=== PATIENT | female | born 1955 | race Caucasian/White ===

== ENCOUNTER 2020-03-25 15:58 | Outpatient (CLI) | payer BC, SELFPAY ==
--- NOTE | ~2020-03-25 | XR_ITS ---
EXAMINATION: XR foot RT min 3V, XR ankle RT min 3V EXAM DATE: 03/25/2020 16:28 (accession [id number]), 03/25/2020 16:29 (accession [id number]) INDICATION: Initial encounter following injury, with pain of the right foot and ankle. TECHNIQUE: Right foot dorsoplantar, lateral and oblique projections obtained and reviewed. Right ank le frontal, lateral and oblique projections obtained and reviewed. There is no prior study for alejandro padilla. FINDINGS: Right metatarsal bones unremarkable. The right ankle mortise appears intact. Small post erior and inferior calcaneal spurs. There are no acute fractures or dislocations identified. There i s no subcutaneous gas. The soft tissue is unremarkable. There are no radiopaque foreign bodies. IMPRESSION: 1. Right foot, ankle exam without acute osseous findings. Reviewed, dictated and finalized at location A. IMPRESSION: 1. Right foot, ankle exam without acute osseous findings.
== END 2020-03-25 15:59 | disposition home or self-care (01) ==
PROVIDERS: PCP Internal Medicine; Visit Provider Internal Medicine
DX: S99.919A Unspecified injury of unspecified ankle, initial encounter (principal); X58.XXXA Exposure to other specified factors, initial encounter
CPT/HCPCS: 73610; 73630

== ENCOUNTER 2020-09-09 08:35 | Emergency (ER) | payer BC, SELFPAY ==
[2020-09-09] VITALS (19 sets, daily range): BP systolic 134–155; BP diastolic 59–85; PULSE 58–71; RESP 15–23; TEMP 37; O2SAT 98–100
--- NOTE | ~2020-09-09 | XR_ITS ---
EXAMINATION: XR chest 2V DATE: 09/09/2020 09:31 INDICATION: Chest pain. TECHNIQUE: Frontal and lateral views of the chest were obtained. COMPARISON: Chest 2 views 12/09/2017 FINDINGS: The chest demonstrates clear lungs without pneumonia, pleural effusion, or pneumothorax. Th e heart size is normal. Surgical clips in the right upper quadrant are likely from cholecystectomy. IMPRESSION: 1. No acute cardiopulmonary disease. Reviewed, dictated and finalized at location B. UITING SCHEDULER
--- NOTE | 2020-09-09 08:40 | ECG_ITS ---
Measurements Intervals [place] Rate: 76 P: 64 GA: 140 QRS: 43 QRSD: 79 T: 43 QT: 387 QTc: 436 Interpretive Statements SINUS RHYTHM BORDERLINE ST ABNORMALITY- ANT/INF LEADS BORDERLINE ECG Electronically Signed On 09-09-2020 9:22:07 [employer] MANAGER by Chava Bonds D.O.
--- NOTE | 2020-09-09 08:50 | ED.CHESTPAIN ---
HPI - Chest Pain General Chief Complaint: Chest Pain Stated Complaint: chest pain Time Seen by Provider: 09/09/20 08:49 Source: patient Mode of arrival: ambulatory Limitations: no limitations History of Present Illness HPI narrative: Patient is a 65-year-old female complaining of chest pain, midsternal, tightness, 8 out of 10, nonradiating, lasted for approximately 4-5 minutes, single episode, now resolved. Patient denies any shortness of breath, nausea, vomiting, abdominal pain, diaphoresis or fever Related Data Home Medications Medication Instructions Recorded Confirmed aspirin [Aspir-81] 81 mg PO DAILY 09/05/19 07/01/20 calcium-vitamin D3-vitamin K 1 tablet PO DAILY 09/05/19 07/01/20 loratadine-pseudoephedrine ER 10 1 tablet PO DAILY 10/16/19 07/01/20 mg-240 mg tablet,extended [id number] omeprazole 20 mg capsule,delayed 20 mg PO DAILY 10/16/19 07/01/20 release turmeric 400 mg capsule mg PO 10/16/19 07/01/20 cholecalciferol (vitamin D3) 1,250 1,250 mcg PO WEEKLY 06/30/20 07/01/20 mcg (50,000 unit) tablet Allergies Allergy/AdvReac Type Severity Reaction Status Date / Time codeine Allergy Rash Verified 09/09/20 08:44 Review of Systems Review of Systems: All systems reviewed & are unremarkable except as noted in HPI and below Constitutional: Constitutional: Denies body ache(s), Denies chills, Denies excessive sweating, Denies fatigue, Denies fever(s), Denies headache(s), Denies lethargy, Denies malaise, Denies weakness and Denies weight loss Eyes: Eyes: Denies blurry vision, Denies change in vision and Denies loss of vision ENT: Denies dizziness, Denies ear discharge, Denies headache(s), Denies lip swelling, Denies epistaxis, Denies nasal congestion, Denies neck pain, Denies throat swelling and Denies tongue swelling Cardiovascular: Cardiovascular: Denies diaphoresis, Denies rapid heart rate, Denies edema, Denies irregular heart rhythm, Denies lightheadedness, Denies palpitations, Denies dyspnea and Denies dyspnea on exertion Respiratory: Respiratory: Denies chest congestion, Denies cough, Denies hemoptysis, Denies dyspnea and Denies dyspnea on exertion Gastrointestinal: Gastrointestinal: Denies abdominal pain, Denies melena, Denies hematochezia, Denies diarrhea, Denies nausea, Denies vomiting and Denies hematemesis Musculoskeletal: Musculoskeletal: Denies abnormal gait, Denies deformity, Denies joint swelling, Denies limited range of motion, Denies neck pain and Denies numbness Neurologic: Denies Abnormal speech present, Denies abnormal gait, Denies confusion, Denies dizziness, Denies headache(s), Denies focal weakness, Denies loss of vision, Denies numbness, Denies Other visual disturbances, Denies Sensory deficit (Neuro) and Denies weakness Psychiatric: Psychiatric: Denies confusion, Denies depression, Denies auditory hallucinations, Denies homicidal ideation and Denies suicidal ideation Endocrine: Endocrine: Denies cold intolerance, Denies excessive sweating, Denies fatigue, Denies heat intolerance and Denies palpitations Hematologic/Lymphatic: Hematologic/Lymphatic: Denies easy bleeding and Denies easy bruising Allergic/Immunologic: Allergic/Immunologic: Denies lip swelling, Denies throat swelling and Denies tongue swelling [facility] Past Medical History Medical History (Updated 09/09/20 @ 12:46 by Gianluca Brennan MD) Body mass index (BMI) 40.0-44.9, adult Chronic headaches Encounter for preventive health examination Encounter for routine adult health examination without abnormal findings GERD (gastroesophageal reflux disease) Hyperlipidemia Hypertension Hypothyroid Hypothyroidism (acquired) Mild reactive airways disease Morbid obesity On correction 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 MIO (obstructive sleep apnea) uses oral appliance Family History Family History Father Family history of malignant neoplasm of gastrointestinal tract Rectal Family history o
[2020-09-09 09:02] LABS: Basophils Absolute Auto 0.1 K/mm3 (0.0-0.1); Basophils Percent Auto 0.7 % (0.2-1.2); Eosinophils Absolute Auto 0.5 K/mm3 (0-0.3); Eosinophils Percent Auto 5.4 % (0-4.4); Hematocrit 37.5 % (37.0-47.0); Hemoglobin 12.5 g/dL (12.0-15.0); Immature Granulocyte Absolute 0.03 K/mm3 (0.00-0.031); Immature Granulocyte Percent A 0.3 % (0-0.5); Lymphocytes Absolute Auto 1.53 K/mm3 (0.9-3.2); Lymphocytes Percent Auto 17.3 % (18.3-44.2); Mean Corpuscular HGB Conc 33.3 g/dl (32-36); Mean Corpuscular Hemoglobin 27.5 pg (26-34); Mean Corpuscular Volume 82.4 fl (80-100); Mean Platelet Volume 8.8 fl (7.4-10.4); Monocytes Absolute Auto 0.6 K/mm3 (0.1-0.6); Monocytes Percent Auto 7.2 % (2.6-8.5); Neutrophils Absolute Auto 6.1 K/mm3 (1.3-6.7); Neutrophils Percent Auto 69.1 % (45.5-73.1); Platelet Count Result 282 k/mm3 (150-375); Red Blood Count 4.55 M/mm3 (4.2-5.4); Red Cell Distribution Width 14.2 % (11.5-14.5); White Blood Count 8.9 K/mm3 (4.5-10.0)
[2020-09-09 09:09] LABS: INR 0.9; Prothrombin Time 12.8 Seconds (11.1-14.7)
[2020-09-09 09:10] LABS: Partial Thromboplastin Time 26.5 SECONDS (22.3-36.8)
[2020-09-09 09:39] LABS: Anion Gap 6 mmol/L (8-16); Blood Urea Nitrogen 18 mg/dL (7-17); Calcium 9.1 mg/dL (8.4-10.2); Carbon Dioxide 29 mmol/L (22-30); Chloride 104 mmol/L (98-107); Estimated CRCL calculation 65 ml/min; Estimated Glomerular Filt Rate 56; Glucose 116 mg/dL (65-105); Potassium 3.6 mmol/L (3.4-5.0); Sodium 139 mmol/L (137-145)
--- NOTE | 2020-09-09 09:40 | PC.NURSE ---
pt states she took a regular aspirin this am.
[2020-09-09 09:49] LABS: Troponin I < 0.012 ng/mL (0.000-0.034)
[2020-09-09 12:25] LABS: Troponin I < 0.012 ng/mL (0.000-0.034)
== END 2020-09-09 13:03 | disposition home or self-care (01) ==
PROVIDERS: Emergency Provider Emergency Medicine; PCP Internal Medicine
DX: R07.89 Other chest pain (principal); E66.01 Morbid (severe) obesity due to excess calories; Z68.41 Body mass index [BMI] 40.0-44.9, adult; K21.9 Gastro-esophageal reflux disease without esophagitis; E78.5 Hyperlipidemia, unspecified; I10 Essential (primary) hypertension; E03.9 Hypothyroidism, unspecified; G47.30 Sleep apnea, unspecified
CPT/HCPCS: 36415; 71046; 80048; 84484; 85025; 85610; 85730; 93005; 99284

== ENCOUNTER → 2020-11-11 14:10 | Outpatient (CLI) | payer BC, SELFPAY ==
--- NOTE | ~2020-11-11 | MM_ITS ---
EXAMINATION: MM screening [facility] BI w mojgan HISTORY: Screening TECHNIQUE: Craniocaudal and mediolateral oblique 3-D tomosynthesis images were obtained and synthetic 2-D images were generated. CAD analysis was submitted and interpreted. COMPARISON: Comparison to multiple prior studies sequentially, with oldest reviewed study dated 06/23. BREAST PARENCHYMAL COMPOSITION: There are scattered areas of fibroglandular density. FINDINGS: Stable clustered calcifications in the upper outer quadrant of the left breast with adjacen t tissue marker. There is no evidence of suspicious mass, calcification, or architectural distortion to suggest malignancy in either breast. There has been no suspicious interval change. IMPRESSION: 1. No mammographic evidence of malignancy. 2. Recommend routine screening mammography in one year. BI-RADS Category 2: Benign finding(s). Reviewed, dictated and finalized at location A. MIXER
== END ==
PROVIDERS: PCP Internal Medicine; Visit Provider Nurse Practitioner
DX: Z12.31 Encounter for screening mammogram for malignant neoplasm of breast (principal)
CPT/HCPCS: 77063; 77067

== ENCOUNTER 2021-07-30 08:15 | Outpatient (CLI) | payer BC, SELFPAY ==
--- NOTE | ~2021-07-30 | US_ITS ---
EXAMINATION: US abdomen limited DATE: 07/30/2021 08:42 INDICATION: Elevated liver function tests TECHNIQUE: Multiple grayscale and Doppler ultrasound images of the abdomen were obtained. COMPARISON: None FINDINGS: The pancreatic head and body are normal in appearance. The pancreatic tail is not visualized. Visual ized proximal abdominal aorta and inferior vena cava are normal. Liver has normal echogenicity and co ntour, with a smooth surface. No liver lesion identified. No intrahepatic biliary duct dilation suspe cted. Portal venous flow was seen in the hepatopetal, normal direction and has normal Doppler wavefor m. Gallbladder is not visualized and reportedly surgically absent. Common bile duct measures 7 mm in maximal diameter which is within normal limits postcholecystectomy. Visualized portion of the right k idney demonstrates normal contour and echogenicity with no hydronephrosis. IMPRESSION: 1. Mildly dilated common bile duct which is within normal limits post cholecystectomy. Otherwise norm al study with no intrahepatic biliary ductal dilation. Reviewed, dictated and finalized at location A. IMPRESSION: 1. Mildly dilated common bile duct which is within normal limits post cholecyst ectomy. Otherwise normal study with no intrahepatic biliary ductal dilation.
== END 2021-07-30 08:16 | disposition home or self-care (01) ==
LOC: ANHIMG 08:18
PROVIDERS: PCP Internal Medicine; Visit Provider Internal Medicine
DX: R79.89 Other specified abnormal findings of blood chemistry (principal)
CPT/HCPCS: 76705

== ENCOUNTER 2021-10-16 10:49 | Outpatient (CLI) | payer BC, SELFPAY ==
[2021-10-16 11:56] LABS: Alanine Aminotransferase 34 U/L (4-35); Albumin Level 4.3 g/dL (3.5-5.1); Alkaline Phosphatase 87 U/L (38-126); Aspartate Amino Transferase 48 U/L (14-36); Bilirubin,Total 1.8 mg/dL (0.2-1.3); Cholesterol 159 mg/dL (0-200); HDL Direct 57 mg/dL; Triglycerides 109 mg/dL (<150)
[2021-10-16 12:07] LABS: LDL Cholesterol Direct 68 mg/dL
[2021-10-20 14:02] LABS: Vitamin D 25 Hydroxy 75.1 ng/mL
== END 2021-10-16 10:50 | disposition home or self-care (01) ==
PROVIDERS: PCP Internal Medicine; Visit Provider Internal Medicine
DX: E55.9 Vitamin D deficiency, unspecified (principal); E78.2 Mixed hyperlipidemia; R79.89 Other specified abnormal findings of blood chemistry
CPT/HCPCS: 36415; 80061; 80076; 82306

== ENCOUNTER → 2021-11-21 09:49 | Outpatient (CLI) | payer BC, SELFPAY ==
--- NOTE | ~2021-11-21 | MM_ITS ---
EXAMINATION: MM screening [facility] BI w mojgan HISTORY: Screening mammogram TECHNIQUE: Craniocaudal and mediolateral oblique 3-D tomosynthesis images were obtained and synthetic 2-D images were generated. CAD analysis was submitted and interpreted. COMPARISON: 11/11/2020, 08/10/2019, 07/17/2018, 07/06/2018 BREAST PARENCHYMAL COMPOSITION: The breasts are almost entirely fatty. FINDINGS: Scattered benign-appearing calcifications are present. There is no evidence of suspicious m ass, calcification, or architectural distortion to suggest malignancy in either breast. There has bee n no suspicious interval change. IMPRESSION: 1. No mammographic evidence of malignancy. 2. Recommend routine screening mammography in one year. BI-RADS Category 2: Benign finding(s). Reviewed, dictated and finalized at location A. SH FLAKER
--- NOTE | ~2021-11-21 | DEXA_ITS ---
Bone Density Report Name: DELVIS LUND Age: 66 Sex: Female Ethnicity: White Date of : 1955 Indication: postmenopausal; screening for osteoporosis; hysterectomy; Referring Provider: PRANAV, MIGUEL Study: Bone densitometry was performed. Exam Date: November 21, 2021 Accession number: [id number] Bone Density: Region BMD T-score Z-score Classification AP Spine (L1-L4) 1.158 1.0 2.7 Normal Femoral Neck (Left) 0.786 -0.6 0.9 Normal Total Hip (Left) 1.070 1.0 2.2 Normal Femoral Neck (Right) 0.868 0.2 1.6 Normal Total Hip (Right) 1.040 0.8 2.0 Normal Total Hip Mean 1.055 0.9 2.1 Normal World Health Organization criteria for BMD impression classify patients as: Normal (T-score at or above -1.0), Osteopenia (T-score between -1.0 and -2.5), or Osteoporosis (T-score at or below -2.5). 10-year Fracture Risk: FRAX not reported because: All T-scores for Spine Total, Hip Total, Femoral Neck at or above -1.0 Previous Exams: Region Exam Age BMD T-score BMD Change BMD Change Date g/cm2 vs Baseline vs Previous AP Spine(L1-L4) 11/21/2021 66 1.158 1.0 -0.084 0.014 06/23/2017 61 1.144 0.9 -0.098 -0.028* 10/14/2012 57 1.172 1.1 -0.070 0.001 09/02/2010 55 1.171 1.1 -0.071 -0.055 06/03/2008 52 1.226 1.6 -0.016 -0.016 11/18/2004 49 1.242 1.8 Total Hip(Left) 11/21/2021 66 1.070 1.0 -0.062 -0.051* 06/23/2017 61 1.121 1.5 -0.011 0.029* 10/14/2012 57 1.092 1.2 -0.040 -0.005 09/02/2010 55 1.097 1.3 -0.035 0.016 06/03/2008 52 1.081 1.1 -0.051* -0.051* 11/18/2004 49 1.132 1.6 Total Hip(Right) 11/21/2021 66 1.040 0.8 -0.048 -0.001 06/23/2017 61 1.041 0.8 -0.046 -0.023 10/14/2012 57 1.065 1.0 -0.023 0.039* 09/02/2010 55 1.025 0.7 -0.062 -0.033 06/03/2008 52 1.059 1.0 -0.029* -0.029* 11/18/2004 49 1.087 1.2 *Denotes significance at 95% confidence level, LSC for AP Spine = 0.022 g/cm2, LSC for Total Hip = 0.027 g/cm2 Clinical Information Provided by Patient: Has used the following medications: Vitamin D Has the following medical conditions: Hysterectomy Patient maximum height was 65.5 Menopause Age: 41 Drinks caffeinated beverages Onset of menses at a
== END ==
PROVIDERS: PCP Internal Medicine; Visit Provider Nurse Practitioner
DX: Z12.31 Encounter for screening mammogram for malignant neoplasm of breast (principal); Z78.0 Asymptomatic menopausal state
CPT/HCPCS: 77063; 77067; 77080

== ENCOUNTER 2022-02-01 08:12 | Outpatient (CLI) | payer BC, SELFPAY ==
--- NOTE | ~2022-02-01 | NM_ITS ---
EXAMINATION: NM alvarado stress w perfusion DATE: 02/01/2022 11:01 INDICATION: Abnormal finding on diagnostic imaging of the heart. TECHNIQUE: Rest images were obtained following intravenous administration of 11.0 mCi Tc99m tetrofosm in (Myoview). The patient was infused intravenously with Lexiscan (Regadenoson). Then, 33.0 mCi Tc99m tetrofosmin (Myoview) was administered intravenously, and stress images were obtained. Data was kemi nstructed into short axis and horizontal and vertical long axis SPECT images. Gated SPECT images were also obtained. COMPARISON: None. FINDINGS: There is no definite reversible or fixed perfusion abnormality to suggest ischemia or infar ction. There is normal left ventricular chamber size, wall motion and ejection fraction. Left ventr icular ejection fraction measures >70%. IMPRESSION: 1. Normal myocardial perfusion at rest and during stress. 2. Left ventricular ejection fraction measuring >70%. Reviewed, dictated and finalized at location B.
--- NOTE | 2022-02-01 08:29 | EST_ITS ---
Patient Info Name: Kathleen Weller Age: 66 years : 1955 Gender: Female Ht: 65 in Wt: 228 lbs BSA: 2.23 m2 HR: 81 bpm BP: 105 / 64 mmHg Heart Rhythm: Sinus Rhythm Exam Date: 02/01/2022 9:45 AM Exam Location: [facility] Stress Patient Status: Outpatient Admit Date: 02/01/2022 Staff Ordering Physician: Rock Early MD Attending Provider: Rock Early MD Exercise Technologist: Vicki Lopez CT Exercise Physician: Chava Bonds DO Exam Type: CA stress alvarado w NM Study Info Indications R07.9 - Chest pain, unspecified A regadenoson stress test was performed. Summary 1. 1. Negative lexiscan stress test for ischemic ST changes by ECG criteria. 2. 2. Stable hemodynamics throughout the test. 3. 3. Nuclear scan to follow and will be reported separately. Please correlate with it. 4. 4. Patient informed of the above results. Protocol: Lexiscan Stress ECG Details Stage: REST Duration (min): 2 min : 46 sec HR (bpm): 81 SBP (mmHg): 105 DBP (mmHg): 64 Stage: REST Duration (min): 9 min : 23 sec HR (bpm): 80 SBP (mmHg): 105 DBP (mmHg): 64 Stage: STAGE 1 Duration (min): 1 min : 0 sec HR (bpm): 97 SBP (mmHg): 82 DBP (mmHg): 55 Stage: RECOVERY Duration (min): 1 min : 0 sec HR (bpm): 94 SBP (mmHg): 82 DBP (mmHg): 55 Stage: RECOVERY Duration (min): 2 min : 0 sec HR (bpm): 95 SBP (mmHg): 82 DBP (mmHg): 55 Stage: RECOVERY Duration (min): 2 min : 48 sec HR (bpm): 96 SBP (mmHg): 101 DBP (mmHg): 55 Rest HR: 80 bpm Peak HR: 99 bpm Rest Sys BP: 105 mmHg Peak Sys BP: 101 mmHg Max Pred HR: 156 bpm % Max Pred HR: 63 % Target HR: 133 bpm Max RPP: 9,999 bpm*mmHg Termination Reason: Completed protocol Cardiac Symptoms: Shortness of breath Total Time: 1 min : 0 sec Rest Rico BP: 64 mmHg Peak Rico BP: 55 mmHg Total Dose: 0.4 mg Resting ECG Sinus rhythm, borderline sagging ST depression in anterolat/inf leads. Stress ECG No significant ST abnormality. Arrhythmias None. Report Signatures
== END 2022-02-01 08:13 | disposition home or self-care (01) ==
PROVIDERS: PCP Internal Medicine; Visit Provider Internal Medicine
DX: R93.1 Abnormal findings on diagnostic imaging of heart and coronary circulation (principal); R07.9 Chest pain, unspecified
CPT/HCPCS: 78452; 93017; A9502; J2785

== ENCOUNTER 2022-02-12 04:14 | Day surgery (SDC) | payer BC, SELFPAY ==
[2022-02-02 10:57] VITALS: BMI 37.4
[2022-02-12 10:43] VITALS: BP 112/71; PULSE 74; RESP 16; TEMP 36.3; O2SAT 100
[2022-02-12] MEDS: LACTATED RINGERS 1,000 ML 150 ML IV CONT (10:52)
--- NOTE | 2022-02-12 10:52 | WPDGICN ---
Assessment and Plan Assessment and plan (1) Dysphagia: Code(s): R13.10 - Dysphagia, unspecified Status: Acute Assessment and Plan: patient with several month history of increasing dysphagia difficulty swallowing solid foods. Plan is for EGD to assess more thoroughly. Likely related to her prior history of GE reflux disease. (2) GERD (gastroesophageal reflux disease): Qualifiers: Esophagitis presence: without esophagitis Qualified Code(s): K21.9 - Gastro-esophageal reflux disease without esophagitis Code(s): K21.9 - Gastro-esophageal reflux disease without esophagitis Status: Acute Assessment and Plan: Patient with a history of GE reflux disease. Currently maintained on omeprazole 20mg p.o. daily. She has no heartburn at present. Continue anti-reflux measures encourage. GI Consult Note Consult date/time: 02/12/22 10:52 HPI: Kathleen Weller is a 66 year old female Presents for EGD. Patient notices that she has difficulty swallowing solid pieces of food over last 2-3 months. She states that will catch cause her to vomit. She feels as though it catches in her throat sometimes unable to swallow liquids after this occurs. Otherwise she has no difficulty with liquids. She does states several years ago was treated for acid reflux disease. She has been maintained on Prilosec the intra recently tried to double this dose with no change in her symptoms. She denies any significant heartburn present. She has had no bleeding or weight loss. Her family history is noncontributory. Recent colonoscopy 2019. Review of Systems Review of Systems: All systems reviewed & are unremarkable except as noted in HPI and below PMFSH Past Medical History Medical History (Updated 02/12/22 @ 10:53 by Manuel Horowitz MD) Abnormal finding of blood chemistry Agatston coronary artery calcium score between 100 and 199 Atypical chest pain Body mass index (BMI) 40.0-44.9, adult Body mass index (BMI) 45.0-49.9, adult Chest pain Chronic headaches Dyshidrotic eczema Elevated LFTs Encounter for preventive health examination Encounter for routine adult health examination with abnormal findings Encounter for routine adult health examination without abnormal findings Follow up GERD (gastroesophageal reflux disease) Hyperlipidemia Hypertension Hypothyroid Hypothyroidism (acquired) Mild reactive airways disease Morbid obesity 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 MIO (obstructive sleep apnea) uses oral appliance MIO (obstructive sleep apnea) MIO (obstructive sleep apnea) Pre-diabetes Rash Vision changes Surgical History Surgical History (Updated 01/20/22 @ 14:01 by Agueda Sampson MA) H/O: hysterectomy History of cholecystectomy Family History Family History Father Family history of malignant neoplasm of gastrointestinal tract Rectal Family history of malignant neoplasm Leukemia Mother Family history of pancreatic cancer, Onset Age: 75 Social History Social History Smoking status: Never smoker Alcohol intake: current Alcohol use details: occasional Substance use: never Substance use type: does not use Living arrangements: with family Spiritual care concerns: No Meds Home Medications and Allergies Home Medications Medication Instructions Recorded Confirmed Type aspirin [Aspir-81] 81 mg PO DAILY 09/05/19 02/02/22 History calcium-vitamin D3-vitamin K 1 tablet PO DAILY 09/05/19 02/02/22 History loratadine-pseudoephedrine ER 10 1 tablet PO DAILY 10/16/19 02/02/22 History mg-240 mg tablet,extended [id number] omeprazole 20 mg capsule,delayed 20 mg PO DAILY 10/16/19 02/02/22 History release betamethasone dipropionate 0.05 % 1 applic TOPICAL BID PRN #45 g 10/14/20 02/02/22 Rx topical cream tizanidine 4 mg tablet See Rx Instructions .R
--- NOTE | 2022-02-12 11:03 | WPDANESEPPF ---
Anes - Initial Pre Proc Eval Procedure: Operation Date: 02/12/22 12:00 Proposed Procedures p Esophagogastroduodenoscopy - Manuel Horowitz MD Date/Time: 02/12/22 11:04 Surgeon: Manuel Horowitz MD Pre Op Diagnosis: dysphagia Patient Data Age: 66 Gender: F Height: 1.66 m Weight: 101.2 kg Last Vital Signs Temp 36.3 C L 02/12/22 10:43 Pulse 74 02/12/22 10:43 Resp 16 02/12/22 10:43 BP 112/71 02/12/22 10:43 Pulse Ox 100 02/12/22 10:43 Allergies Allergy/AdvReac Type Severity Reaction Status Date / Time codeine Allergy Rash Verified 02/12/22 10:41 Home Medications Medication Instructions Recorded Confirmed Type aspirin [Aspir-81] 81 mg PO DAILY 09/05/19 02/02/22 History calcium-vitamin D3-vitamin K 1 tablet PO DAILY 09/05/19 02/02/22 History loratadine-pseudoephedrine ER 10 1 tablet PO DAILY 10/16/19 02/02/22 History mg-240 mg tablet,extended [id number] omeprazole 20 mg capsule,delayed 20 mg PO DAILY 10/16/19 02/02/22 History release betamethasone dipropionate 0.05 % 1 applic TOPICAL BID PRN #45 g 10/14/20 02/02/22 Rx topical cream tizanidine 4 mg tablet See Rx Instructions .ROUTE 01/22/21 02/02/22 Rx .COMPLEX #45 tablet cholecalciferol (vitamin D3) 1,250 1,250 mcg PO MONTHLY 08/17/21 02/02/22 History mcg (50,000 unit) capsule rosuvastatin 20 mg tablet 20 mg PO DAILY #90 tablet 08/17/21 02/02/22 Rx rimegepant 75 mg disintegrating 75 mg PO ONCE PRN #30 tablet 10/20/21 02/02/22 Rx tablet losartan 100 See Rx Instructions .ROUTE 12/09/21 02/02/22 Rx mg-hydrochlorothiazide 12.5 mg .COMPLEX #90 tablet tablet acyclovir 400 mg tablet See Rx Instructions .ROUTE 12/14/21 02/02/22 Rx .COMPLEX #180 tablet levothyroxine 112 mcg tablet See Rx Instructions .ROUTE 01/15/22 02/02/22 Rx .COMPLEX #90 tablet azelastine 137 mcg (0.1 %) nasal 2 spray NASAL Q12H #30 ml 02/04/22 02/12/22 Rx spray aerosol Patient hx anesthesia problems: none Family hx anesthesia problems: none Results Review: All pre-operative results and documents have been reviewed as part of the pre-operative evaluation. [facility] Past Medical History Medical History Abnormal finding of blood chemistry Agatston coronary artery calcium score between 100 and 199 Atypical chest pain Body mass index (BMI) 40.0-44.9, adult Body mass index (BMI) 45.0-49.9, adult Chest pain Chronic headaches Dyshidrotic eczema Elevated LFTs Encounter for preventive health examination Encounter for routine adult health examination with abnormal findings Encounter for routine adult health examination without abnormal findings Follow up GERD (gastroesophageal reflux disease) Hyperlipidemia Hypertension Hypothyroid Hypothyroidism (acquired) Mild reactive airways disease Morbid obesity On long term care administrator 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 MIO (obstructive sleep apnea) uses oral appliance MIO (obstructive sleep apnea) MIO (obstructive sleep apnea) Pre-diabetes Rash Vision changes Surgical History Surgical History H/O: hysterectomy History of cholecystectomy Family History Family History Father Family history of malignant neoplasm of gastrointestinal tract Rectal Family history of malignant neoplasm Leukemia Mother Family history of pancreatic cancer, Onset Age: 75 Social History Social History Smoking status: Never smoker Alcohol intake: current Alcohol use details: occasional Substance use: never Substance use type: does not use Living arrangements: with family Spiritual care concerns: No Anes - Eval Final PreProcedure Day of Procedure 02/12/22 11:04 Patient weight: obese Heart: regular rate and rhythm Lungs: clear to auscultation Airway: Mallampati scale class II Neurological: a
[2022-02-12 11:48] VITALS: BP 95/41; PULSE 58; RESP 17; O2SAT 100
[2022-02-12 11:58] VITALS: BP 101/58; PULSE 59; RESP 14; O2SAT 100
[2022-02-12 12:08] VITALS: BP 105/58; PULSE 60; RESP 15; O2SAT 100
== END 2022-02-12 12:24 | disposition home or self-care (01) ==
PROVIDERS: PCP Internal Medicine; Visit Provider Internal Medicine Gastroenterology
PROC: 0DJ08ZZ Inspection of Upper Intestinal Tract, Via Natural or Artificial Opening Endoscopic (ICD-10-PCS; CPT 43235; principal; 2022-02-12 12:00)
DX: K22.2 Esophageal obstruction (principal); K21.9 Gastro-esophageal reflux disease without esophagitis; I10 Essential (primary) hypertension; E78.5 Hyperlipidemia, unspecified; E03.9 Hypothyroidism, unspecified; J45.909 Unspecified asthma, uncomplicated; G47.33 Obstructive sleep apnea (adult) (pediatric); R73.03 Prediabetes; L30.1 Dyshidrosis [pompholyx]; E66.9 Obesity, unspecified; Z68.36 Body mass index [BMI] 36.0-36.9, adult; Z79.82 Long term (current) use of aspirin
CPT/HCPCS: 43450; 43235; J2704; J7120

== ENCOUNTER 2022-03-17 09:38 | Outpatient (CLI) | payer BC, SELFPAY ==
[2022-03-17 10:10] LABS: Basophils Absolute Auto 0.1 K/mm3 (0.0-0.1); Basophils Percent Auto 0.6 % (0.2-1.2); Eosinophils Absolute Auto 0.4 K/mm3 (0-0.3); Hematocrit 31.2 % (37.0-47.0); Hemoglobin 10.7 g/dL (12.0-15.0); Immature Granulocyte Absolute 0.08 K/mm3 (0.00-0.031); Immature Granulocyte Percent A 0.6 % (0-0.5); Lymphocytes Absolute Auto 1.51 K/mm3 (0.9-3.2); Lymphocytes Percent Auto 11.5 % (18.3-44.2); Mean Corpuscular HGB Conc 34.3 g/dl (32-36); Mean Corpuscular Hemoglobin 28.1 pg (26-34); Mean Corpuscular Volume 81.9 fl (80-100); Mean Platelet Volume 9.1 fl (7.4-10.4); Monocytes Percent Auto 7.2 % (2.6-8.5); Neutrophils Absolute Auto 10.2 K/mm3 (1.3-6.7); Neutrophils Percent Auto 77.1 % (45.5-73.1); Platelet Count Result 332 k/mm3 (150-375); Red Blood Count 3.81 M/mm3 (4.2-5.4); White Blood Count 13.2 K/mm3 (4.5-10.0)
[2022-03-17 14:34] LABS: Hemoglobin A1C 5.8 % (<5.7)
[2022-03-17 14:36] LABS: LDL Cholesterol Direct 54 mg/dL
[2022-03-17 14:39] LABS: Vitamin D 25 Hydroxy 76.9 ng/mL
[2022-03-17 15:38] LABS: Appearance Urine Cloudy (Clear); Bilirubin Urine Negative (Negative); Blood Urine Negative (Negative); Color Urine Yellow (Yellow); Glucose Urine UA Negative (Negative); Ketones Urine Negative (Negative); Leukocyte Esterase Ur 1+ LEU/UL (Negative); Nitrate Urine Positive (Negative); Protein Urine 2+ mg/dL (Negative); Specific Grav Ur 1.015 (1.001-1.035); Urobilinogen Urine 0.2 mg/dL (<2.0)
[2022-03-17 15:44] LABS: Alanine Aminotransferase 16 U/L (6-35); Albumin Level 4.6 g/dL (3.5-5.1); Alkaline Phosphatase 88 U/L (38-126); Anion Gap 14 mmol/L (8-16); Aspartate Amino Transferase 24 U/L (14-36); Bilirubin,Total 1.1 mg/dL (0.2-1.3); Blood Urea Nitrogen 47 mg/dL (7-17); Calcium 9.6 mg/dL (8.4-10.2); Carbon Dioxide 21 mmol/L (22-30); Chloride 100 mmol/L (98-107); Cholesterol 145 mg/dL (0-200); Estimated Glomerular Filt Rate 13; Glucose 123 mg/dL (65-110); HDL Direct 46 mg/dL; Potassium 2.4 mmol/L (3.4-5.0); Sodium 135 mmol/L (137-145); Triglycerides 118 mg/dL (<150)
[2022-03-17 15:55] LABS: Bacteria Urine Trace /hpf; Mucus Urine Rare /lpf; Squamous Epithelial Cell Urine Rare /hpf (Few); WBC Urine >75 /hpf
[2022-03-17 16:33] LABS: Add Urine Microscopic? YES
== END 2022-03-17 09:39 | disposition home or self-care (01) ==
PROVIDERS: PCP Internal Medicine; Visit Provider Internal Medicine
DX: E55.9 Vitamin D deficiency, unspecified (principal); R73.03 Prediabetes; Z51.81 Encounter for therapeutic drug level monitoring; Z79.899 Other long term (current) 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; R79.89 Other specified abnormal findings of blood chemistry; E78.2 Mixed hyperlipidemia; I10 Essential (primary) hypertension
CPT/HCPCS: 36415; 80048; 80053; 80061; 81001; 82306; 83036; 85025; 87077; 87086; 87186

== ENCOUNTER 2022-03-17 17:44 | Outpatient (CLI) | payer BC, SELFPAY ==
[2022-03-17 18:32] LABS: Anion Gap 16 mmol/L (8-16); Blood Urea Nitrogen 49 mg/dL (7-17); Calcium 9.3 mg/dL (8.4-10.2); Carbon Dioxide 21 mmol/L (22-30); Chloride 99 mmol/L (98-107); Estimated Glomerular Filt Rate 13; Glucose 143 mg/dL (65-110); Potassium 2.3 mmol/L (3.4-5.0); Sodium 136 mmol/L (137-145)
== END 2022-03-17 17:45 | disposition home or self-care (01) ==
PROVIDERS: PCP Internal Medicine; Visit Provider Internal Medicine
DX: E87.6 Hypokalemia (principal); Z51.81 Encounter for therapeutic drug level monitoring; Z79.899 Other long term (current) 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
CPT/HCPCS: 36415; 80048

== ENCOUNTER 2022-03-17 19:18 | Inpatient (IN) | payer BC, SELFPAY ==
--- NOTE | ~2022-03-17 | US_ITS ---
EXAMINATION: US renal BI DATE: 03/18/2022 13:13 INDICATION: Acute renal insufficiency TECHNIQUE: Multiple ultrasound grayscale images of the kidneys were obtained. COMPARISON: None. FINDINGS: The right kidney measures 10.7 x 5.8 x 6.1 cm. The left kidney measures 11.6 x 4.8 x 5.6 cm. The kidn eys demonstrate normal echogenicity. There is no hydronephrosis in either kidney. No stones identifi ed. The bladder is normal. IMPRESSION: 1. Normal kidneys without hydronephrosis. Reviewed, dictated and finalized at location A.
--- NOTE | ~2022-03-17 | CT_ITS ---
EXAMINATION: CT abdomen pelvis wo con DATE: 03/17/2022 22:06 INDICATION: elev Cr TECHNIQUE: Computed tomography (CT) of the abdomen and pelvis was performed without intravenous contr ast. Automated exposure control and iterative reconstruction technique were employed. The dose-length product was 1181.43 mGy-cm. COMPARISON: None FINDINGS: Lower thorax: Unremarkable Liver: Normal. Biliary/Gallbladder: Gallbladder is absent. Mild common duct dilatation as can be seen following chol ecystectomy. Pancreas: No mass or duct dilation. Spleen: Normal. Adrenals:No mass. Kidneys: No mass, stone, or hydronephrosis. GI tract: No small or large bowel dilation. Normal appendix. Diverticulosis without diverticulitis. Mesentery/Peritoneum: No ascites, mass, or free air. Scattered subcentimeter mesenteric nodes. Retroperitoneum: No mass. Para-aortic lymphadenopathy. Prominent perihepatic lymph nodes. Minimal ath erosclerotic calcifications. Pelvis: Uterus is absent, otherwise the pelvic organs are within normal limits. Soft Tissues: Soft tissues and body wall unremarkable. Bones: No acute osseous finding. IMPRESSION: No acute abdominopelvic process. Para-aortic lymphadenopathy. Reviewed, dictated and finalized at location K.
[2022-03-17 19:46] VITALS: BP 127/58; PULSE 83; RESP 18; TEMP 36.4; O2SAT 100
[2022-03-17 20:38] LABS: Basophils Absolute Auto 0.1 K/mm3 (0.0-0.1); Basophils Percent Auto 0.5 % (0.2-1.2); Eosinophils Absolute Auto 0.4 K/mm3 (0-0.3); Eosinophils Percent Auto 2.7 % (0-4.4); Hematocrit 29.9 % (37.0-47.0); Hemoglobin 10.3 g/dL (12.0-15.0); Immature Granulocyte Absolute 0.08 K/mm3 (0.00-0.031); Immature Granulocyte Percent A 0.6 % (0-0.5); Lymphocytes Absolute Auto 1.76 K/mm3 (0.9-3.2); Lymphocytes Percent Auto 12.1 % (18.3-44.2); Mean Corpuscular HGB Conc 34.4 g/dl (32-36); Mean Corpuscular Hemoglobin 28.2 pg (26-34); Mean Corpuscular Volume 81.9 fl (80-100); Monocytes Absolute Auto 1.2 K/mm3 (0.1-0.6); Monocytes Percent Auto 8.5 % (2.6-8.5); Neutrophils Percent Auto 75.6 % (45.5-73.1); Platelet Count Result 301 k/mm3 (150-375); Red Blood Count 3.65 M/mm3 (4.2-5.4); Red Cell Distribution Width 17.2 % (11.5-14.5); White Blood Count 14.5 K/mm3 (4.5-10.0)
[2022-03-17 20:55] LABS: Alanine Aminotransferase 14 U/L (6-35); Albumin Level 4.4 g/dL (3.5-5.1); Alkaline Phosphatase 87 U/L (38-126); Anion Gap 10 mmol/L (8-16); Aspartate Amino Transferase 23 U/L (14-36); Bilirubin,Total 1.1 mg/dL (0.2-1.3); Blood Urea Nitrogen 51 mg/dL (7-17); Calcium 9.4 mg/dL (8.4-10.2); Carbon Dioxide 22 mmol/L (22-30); Chloride 98 mmol/L (98-107); Estimated CRCL calculation 17 ml/min; Estimated Glomerular Filt Rate 13; Glucose 112 mg/dL (65-110); Magnesium 2.4 mg/dL (1.6-2.3); Potassium 2.2 mmol/L (3.4-5.0); Sodium 130 mmol/L (137-145)
--- NOTE | 2022-03-17 21:11 | ECG_ITS ---
Measurements Intervals [place] Rate: 67 P: 78 MO: 167 QRS: 27 QRSD: 83 T: 40 QT: 389 QTc: 412 Interpretive Statements SINUS RHYTHM NONSPECIFIC ST & T-WAVE ABNORMALITY- ANTEROLAT/INF LEADS BASELINE ARTIFACT- I, II, AVR, V3 BORDERLINE ECG Electronically Signed On 03-18-2022 6:34:49 CDT by Chava Bonds D.O.
[2022-03-17 22:15] VITALS: BP 98/52; PULSE 70; RESP 20; O2SAT 100
[2022-03-17] MEDS: cefTRIAXone 2 GM in SODIUM CHLORIDE 0.9% IV 100 ML 200 ML IVPB (22:30)
[2022-03-17] MEDS: LACTATED RINGERS 1,000 ML 999 ML IV CONT (23:20)
[2022-03-17] MEDS: POTASSIUM CHLORIDE 20 MEQ TABLET PO (23:21)
[2022-03-17] MEDS: POTASSIUM CHLORIDE 20 MEQ PACKET (FOR LIQUID) PO (23:21)
[2022-03-17 23:26] VITALS: BP 104/56; PULSE 70; RESP 18; O2SAT 96
[2022-03-17 23:27] VITALS: RESP 18; O2SAT 96
--- NOTE | 2022-03-17 23:27 | PC.NURSE ---
Assuming care of pt.
[2022-03-17 23:31] LABS: SARS-CoV-2 RNA PCR Negative
--- NOTE | 2022-03-17 23:36 | ED.RECABL ---
HPI - Recheck/Abnormal Lab/Rx General Chief Complaint: Recheck/Abnormal Lab/Rx Stated Complaint: abnormal labs Time Seen by Provider: 03/17/22 20:50 History of Present Illness HPI narrative: Patient was seen by her doctor today and basic labs were drawn, she was found to have elevated creatinine, low potassium. Patient denies any symptoms, she states that few days ago she did have some lower abdominal pain which resolved, denies any fevers or chills, weakness, nausea or vomiting, flank pain. Related Data Home Medications Medication Instructions Recorded Confirmed aspirin [Aspir-81] 81 mg PO DAILY 09/05/19 02/02/22 calcium-vitamin D3-vitamin K 1 tablet PO DAILY 09/05/19 02/02/22 loratadine-pseudoephedrine ER 10 1 tablet PO DAILY 10/16/19 02/02/22 mg-240 mg tablet,extended [id number] omeprazole 20 mg capsule,delayed 20 mg PO DAILY 10/16/19 02/02/22 release cholecalciferol (vitamin D3) 1,250 1,250 mcg PO MONTHLY 08/17/21 02/02/22 mcg (50,000 unit) capsule Allergies Allergy/AdvReac Type Severity Reaction Status Date / Time codeine Allergy Rash Verified 03/17/22 22:14 Review of Systems Review of Systems: CONST: No fever. HEENT: No sore throat C/V: No chest pain RESP: No cough GI: Initial abdominal pain that is resolved : No dysuria. M/S: No joint pain. SKIN: No rash. NEURO: [No headache or focal numbness or weakness] PSYCH: [No depression] [facility] Past Medical History Medical History Abnormal finding of blood chemistry Agatston coronary artery calcium score between 100 and 199 Atypical chest pain Body mass index (BMI) 40.0-44.9, adult Body mass index (BMI) 45.0-49.9, adult Chest pain Chronic headaches Dyshidrotic eczema Elevated LFTs Encounter for preventive health examination Encounter for routine adult health examination with abnormal findings Encounter for routine adult health examination without abnormal findings Follow up GERD (gastroesophageal reflux disease) Hyperlipidemia Hypertension Hypokalemia Hypothyroid Hypothyroidism (acquired) Mild reactive airways disease Morbid obesity On senior care 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 MIO (obstructive sleep apnea) uses oral appliance MIO (obstructive sleep apnea) MIO (obstructive sleep apnea) Pre-diabetes Rash Vision changes Surgical History Surgical History H/O: hysterectomy History of cholecystectomy Family History Family History Father Family history of malignant neoplasm of gastrointestinal tract Rectal Family history of malignant neoplasm Leukemia Mother Family history of pancreatic cancer, Onset Age: 75 Social History Social History Smoking status: Never smoker Alcohol intake: current Alcohol use details: occasional Substance use: never Substance use type: does not use Spiritual care concerns: No Exam Narrative: EXAMINATION OF ORGAN SYSTEMS/BODY AREAS: Constitutional: Vital signs per nursing GENERAL:[No acute distress, non-toxic appearing.] HEAD: Normal with no signs of head trauma. EYES: EOMI, conjunctiva normal ENT: Hearing grossly intact LUNGS: Nonlabored breathing. HEART: [Regular rate and rhythm] ABD: [Soft], [nontender to palpation] EXT: Normal range of motion SKIN: [No rashes or lesions.] NEURO: [Alert and oriented x 3. No gross focal sensory or strength deficits.] PSYCH: Normal affect Course Course Emergency Course: 66-year-old female presenting with incidental labs finding elevated creatinine and low potassium, vital signs stable here, patient very well-appearing on exam with soft nontender abdomen and no flank pain. Differential includes UTI, dehydration, diarrhea or other losses of potassium, kidney stone. EKG here does not show any arrhythmia, she is still making urine and I am less concerned f
[2022-03-18] VITALS (10 sets, daily range): BP systolic 93–126; BP diastolic 45–67; PULSE 61–72; RESP 16–20; TEMP 36.4–36.8; O2SAT 97–100; BMI 35.7
[2022-03-18] MEDS: LACTATED RINGERS 1,000 ML 999 ML IV CONT (01:26)
[2022-03-18] MEDS: POTASSIUM CHLORIDE 20 MEQ PACKET (FOR LIQUID) 40 MEQ PO (01:27)
[2022-03-18] MEDS: LACTATED RINGERS 1,000 ML 125 ML IV CONT ×2 (03:18→13:35)
--- NOTE | 2022-03-18 04:14 | ADMGEN ---
0245 This patient, Kathleen Weller, was admitted to 3 [facility] Surg Room 305-02. Patient/family oriented to hospital policies and general routines including ID bracelet, bed and alarms, visiting hours, pain management, procedures, bathroom and other care routines, personal items, smoking policy, room service/diet, and visiting hours. Information on how to activate the Rapid Response Team has been discussed. Patient/Family are encouraged to report perceived risks to care and to ask questions if they do not understand what they are told or what they should do.
[2022-03-18 09:54] LABS: Basophils Absolute Auto 0.1 K/mm3 (0.0-0.1); Basophils Percent Auto 0.5 % (0.2-1.2); Eosinophils Absolute Auto 0.4 K/mm3 (0-0.3); Eosinophils Percent Auto 4.2 % (0-4.4); Hematocrit 26.1 % (37.0-47.0); Immature Granulocyte Absolute 0.04 K/mm3 (0.00-0.031); Immature Granulocyte Percent A 0.4 % (0-0.5); Lymphocytes Absolute Auto 1.71 K/mm3 (0.9-3.2); Lymphocytes Percent Auto 17.9 % (18.3-44.2); Mean Corpuscular HGB Conc 34.5 g/dl (32-36); Mean Corpuscular Hemoglobin 28.7 pg (26-34); Mean Corpuscular Volume 83.1 fl (80-100); Mean Platelet Volume 8.8 fl (7.4-10.4); Monocytes Absolute Auto 0.7 K/mm3 (0.1-0.6); Monocytes Percent Auto 7.4 % (2.6-8.5); Neutrophils Absolute Auto 6.7 K/mm3 (1.3-6.7); Neutrophils Percent Auto 69.6 % (45.5-73.1); Platelet Count Result 253 k/mm3 (150-375); Red Blood Count 3.14 M/mm3 (4.2-5.4); Red Cell Distribution Width 17.2 % (11.5-14.5); White Blood Count 9.6 K/mm3 (4.5-10.0)
[2022-03-18 10:07] LABS: Magnesium 2.3 mg/dL (1.6-2.3)
[2022-03-18 10:13] LABS: Anion Gap 7 mmol/L (8-16); Blood Urea Nitrogen 38 mg/dL (7-17); Carbon Dioxide 23 mmol/L (22-30); Chloride 105 mmol/L (98-107); Estimated CRCL calculation 25 ml/min; Estimated Glomerular Filt Rate 19; Glucose 109 mg/dL (65-110); Potassium 2.7 mmol/L (3.4-5.0); Sodium 135 mmol/L (137-145)
[2022-03-18] MEDS: POTASSIUM CHLORIDE INJ 40 MEQ in SODIUM CHLORIDE 0.9% IV 500 ML 130 MEQ IVPB (10:44)
--- NOTE | 2022-03-18 12:27 | PM.IMHP ---
H&P: HPI History of Present Illness Date/Time: 03/18/22 12:27 Chief Complaint: Abnormal labs Narrative: Date of service: 03/18/2022 Kathleen Weller is 66-year-old female with a history of hypertension, hyperlipidemia, hypothyroidism, suboptimally treated MIO, prediabetes, and migraines who presented to the emergency department under the direction of her primary care provider after having routine labs which revealed elevated creatinine and low potassium. The patient states she has been feeling in her usual state of health. She feels completely normal at this time. She has not been ill recently and denies sick contacts. She has been tolerating a regular diet. Reports she makes it a goal to stay very hydrated and drinks 8-10 cups of water each day. She has not had any recent nausea or vomiting. She denies urinary symptoms including dysuria, hematuria, dark colored urine, foul-smelling urine. Reports regular urination and denies retention. States her urine is clear and has not noticed any changes. Reports regular bowel movements and has not had any diarrhea. She denies myalgias or arthralgias. Denies dizziness, lightheadedness or weakness. No shortness of breath, cough, or chest pain. No additional signs to indicate infection including fevers or chills. She does endorse seasonal allergies but notes that this has been unchanged. She reports history of genital herpes for which she does take antiviral therapy but no active outbreaks at this time. She reports one other time her renal function was found to be elevated due to a diet supplement that she was taking and she promptly discontinued this. She denies taking any new [id number] supplements, protein powder, energy drinks. Drinks occasional protein shakes. Recently she has started taking ?super beet powder as she is trying to lose some weight. She denies having any recent imaging requiring contrast. She does admit to taking ibuprofen 800 mg maybe 1-2 times per month. Reports the last time she had NSAIDs was over 2 weeks ago On presentation to the ED, her potassium was low at 2.3 and her creatinine was elevated at 3.6. She has been admitted to the hospitalist service for further evaluation and management. Supervising physician for this history and physical is Dr. Zak Claudio. Review of Systems Review of Systems: All systems reviewed & are unremarkable except as noted in HPI and below PMFSH Past Medical History Medical History (Updated 03/18/22 @ 12:46 by Erinn Nova PA-C) Agatston coronary artery calcium score between 100 and 199 Chest pain Chronic headaches Dyshidrotic eczema GERD (gastroesophageal reflux disease) Hyperlipidemia Hypertension Hypokalemia Hypothyroidism (acquired) Mild reactive airways disease MIO (obstructive sleep apnea) uses oral appliance occasionally Pre-diabetes Surgical History Surgical History H/O: hysterectomy History of cholecystectomy Family History Family History (Updated 03/18/22 @ 12:39 by Erinn Nova PA-C) Father Family history of malignant neoplasm of gastrointestinal tract Rectal Family history of malignant neoplasm Lymphoma Heart disease Mother Family history of pancreatic cancer, Onset Age: 75 Social History Social History (Updated 03/18/22 @ 12:40 by Erinn Nova PA-C) Social History: Ms. Weller lives at home with her . She is independent in her daily activities. She works full-time. Her primary care provider is Dr. Rock Early. She designates her , Denis (goes by Johnny) as her surrogate decision maker. She would like to be a full code. Smoking status: Never smoker Second hand tobacco smoke exposure: Yes Alcohol intake: current Alcohol use details: Drinks alcohol 3 times per year Substance use: never Substance use type: does not use Spiritual care concerns: No Meds Home Medicatio
[2022-03-18] MEDS: POTASSIUM CHLORIDE 20 MEQ TABLET PO ×2 (13:35→17:13)
[2022-03-18 15:08] LABS: Creatine Kinase 162 U/L (30-135)
[2022-03-18 15:17] LABS: Potassium 2.6 mmol/L (3.4-5.0)
[2022-03-18 17:03] LABS: Eosinophil Urine None Seen % (None Seen)
[2022-03-18 17:04] LABS: Potassium 2.8 mmol/L (3.4-5.0)
[2022-03-18] MEDS: POTASSIUM CHLORIDE INJ 40 MEQ in SODIUM CHLORIDE 0.9% IV 500 ML 75 MEQ IVPB (17:13)
[2022-03-18] MEDS: ACYCLOVIR 400 MG TABLET BY MOUTH (22:27)
[2022-03-18] MEDS: AZELASTINE HCL NASAL 0.1% 137 MCG/SPR 30 ML BTL 2 SPRAY NASAL (22:27)
[2022-03-19] VITALS (10 sets, daily range): BP systolic 75–114; BP diastolic 42–61; PULSE 59–76; RESP 18–20; TEMP 36.2–36.4; O2SAT 97–100
[2022-03-19 02:11] LABS: Potassium 2.8 mmol/L (3.4-5.0)
[2022-03-19] MEDS: POTASSIUM CHLORIDE INJ 40 MEQ in SODIUM CHLORIDE 0.9% IV 500 ML 130 MEQ IVPB (02:50)
[2022-03-19] MEDS: LEVOTHYROXINE SODIUM 112 MCG TABLET BY MOUTH (05:44)
[2022-03-19 06:20] LABS: Hematocrit 25.2 % (37.0-47.0); Hemoglobin 8.7 g/dL (12.0-15.0); Mean Corpuscular HGB Conc 34.5 g/dl (32-36); Mean Corpuscular Hemoglobin 28.7 pg (26-34); Mean Corpuscular Volume 83.2 fl (80-100); Mean Platelet Volume 9.1 fl (7.4-10.4); Platelet Count Result 250 k/mm3 (150-375); Red Blood Count 3.03 M/mm3 (4.2-5.4); Red Cell Distribution Width 17.7 % (11.5-14.5); White Blood Count 9.2 K/mm3 (4.5-10.0)
[2022-03-19 06:41] LABS: Alanine Aminotransferase 11 U/L (6-35); Albumin Level 3.3 g/dL (3.5-5.1); Alkaline Phosphatase 64 U/L (38-126); Anion Gap 8 mmol/L (8-16); Aspartate Amino Transferase 20 U/L (14-36); Bilirubin,Total 0.8 mg/dL (0.2-1.3); Blood Urea Nitrogen 28 mg/dL (7-17); Calcium 8.6 mg/dL (8.4-10.2); Carbon Dioxide 18 mmol/L (22-30); Chloride 110 mmol/L (98-107); Estimated CRCL calculation 34 ml/min; Estimated Glomerular Filt Rate 28; Glucose 105 mg/dL (65-110); Potassium 3.1 mmol/L (3.4-5.0); Sodium 136 mmol/L (137-145)
[2022-03-19 07:41] LABS: Thyroid Stimulating Hormone Reflex 0.032 uIU/mL (0.465-4.68)
--- NOTE | 2022-03-19 08:00 | P.PNIM_ITS ---
Progress Note: A&P Assessment and Plan (1) BONIFACIO (acute kidney injury): Code(s): N17.9 - Acute kidney failure, unspecified Status: Acute Assessment and Plan: BUN/CR improved today: 28/2.5 (38/2.5) * Patient does have a UTI, this is likely contributing factor * Empiric treatment with Rocephin until sensitivities return. * Renal ultrasound showed normal kidneys without hydronephrosis. * CK mildly elevated * No urine eosinophils seen * Hold losartan-HCTZ * Monitor renal function closely * Strict I& Os Patient's primary care requested nephrology see this patient to further evaluate, and we do appreciate their recommendations. (2) Acute hypokalemia: Code(s): E87.6 - Hypokalemia Status: Acute Assessment and Plan: 3.1 today. * Improved after supplementation * Administer 40 mEq PO K this morning. * Recheck potassium daily, supplement as needed. * Magnesium levels within normal limits (3) Abnormal urinalysis: Code(s): R82.90 - Unspecified abnormal findings in urine Status: Acute Assessment and Plan: UA is abnormal on presentation with positive nitrates, 1+ leuk esterase, >75 WBC. Patient is asymptomatic. * Urine culture shows e. Coli. * Will continue Rocephin IV until sensitivities return. * WBC count has normalized. (4) Hypertension: Code(s): I10 - Essential (primary) hypertension Status: Acute Assessment and Plan: Blood pressures reviewed and have been soft. Last BP 89/44. * IVF bolus this AM with improved BPs. * Holding antihypertensives * Monitor BP trends closely * Check orthostatics (5) Hypothyroidism (acquired): Code(s): E03.9 - Hypothyroidism, unspecified Status: Acute Assessment and Plan: Supratherapeutic on levothyroxine * TSH low/ T4 elevated. * Will have patient follow up as outpatient with primary care. (6) Anemia: Code(s): D64.9 - Anemia, unspecified Status: Acute Assessment and Plan: H/H downtrending 8.7/25.2 (10.7/31.2 on 03/17/22). Microcytic in nature. Pts last colonoscopy 2018, per the patient, was normal. Father with history of colon cancer. Pt denies blood in the stool, hematemesis, nausea, vomiting, not on any correction anticoagulation. * Iron studies * Fecal Occult blood. Additional Plan CT Abd pelvis showed para-aortic lymphadenopathy. * Will check differential tomorrow, patient to follow up OP for this. Subjective Date/time seen: 03/19/22 08:00 Interval history: 66 yo F with PMHs of hypertension, HLD, hypothyroidism, MIO, prediabetes, and migrains who presented here from primary care after routine labs showed elevated Creatinine and low potassium. She is feeling fine today. She has no urinary symptoms, chest pain, shortness of breath, fevers, or chills. She has some left leg stiffness which resolved when she got up to ambulate to the bathroom. Review of Systems Review of Systems: All systems reviewed & are unremarkable except as noted in HPI and below Exam Narrative: General: Well-nourished, well-appearing 66-year-old female, sitting up in bed, comfortable, NARD Neuro: awake, alert and oriented x4, speech clear, no focal neuro deficits noted HEENMT: normocephalic, atraumatic, EOMI, sclerae anicteric, moist oral mucosa Respiratory: clear to auscultation bilaterally, nonlabored breathing Cardio: regular rate, regular rhythm with S1-S2 Abdomen: nondistended, normoactive bowel sounds, soft,
--- NOTE | 2022-03-19 08:00 | PM.IMPN ---
Progress Note: A&P Assessment and Plan (1) BONIFACIO (acute kidney injury): Code(s): N17.9 - Acute kidney failure, unspecified Status: Acute Assessment and Plan: BUN/CR improved today: 28/2.5 (38/2.5) Patient does have a UTI, this is likely contributing factor Empiric treatment with Rocephin until sensitivities return. Renal ultrasound showed normal kidneys without hydronephrosis. CK mildly elevated No urine eosinophils seen Hold losartan-HCTZ Monitor renal function closely Strict I& Os Patient's primary care requested nephrology see this patient to further evaluate, and we do appreciate their recommendations. (2) Acute hypokalemia: Code(s): E87.6 - Hypokalemia Status: Acute Assessment and Plan: 3.1 today. Improved after supplementation Administer 40 mEq PO K this morning. Recheck potassium daily, supplement as needed. Magnesium levels within normal limits (3) Abnormal urinalysis: Code(s): R82.90 - Unspecified abnormal findings in urine Status: Acute Assessment and Plan: UA is abnormal on presentation with positive nitrates, 1+ leuk esterase, >75 WBC. Patient is asymptomatic. Urine culture shows e. Coli. Will continue Rocephin IV until sensitivities return. WBC count has normalized. (4) Hypertension: Code(s): I10 - Essential (primary) hypertension Status: Acute Assessment and Plan: Blood pressures reviewed and have been soft. Last BP 89/44. IVF bolus this AM with improved BPs. Holding antihypertensives Monitor BP trends closely Check orthostatics (5) Hypothyroidism (acquired): Code(s): E03.9 - Hypothyroidism, unspecified Status: Acute Assessment and Plan: Supratherapeutic on levothyroxine TSH low/ T4 elevated. Will have patient follow up as outpatient with primary care. (6) Anemia: Code(s): D64.9 - Anemia, unspecified Status: Acute Assessment and Plan: H/H downtrending 8.7/25.2 (10.7/31.2 on 03/17/22). Microcytic in nature. Pts last colonoscopy 2018, per the patient, was normal. Father with history of colon cancer. Pt denies blood in the stool, hematemesis, nausea, vomiting, not on any correction anticoagulation. Iron studies Fecal Occult blood. Additional Plan CT Abd pelvis showed para-aortic lymphadenopathy. Will check differential tomorrow, patient to follow up OP for this. Subjective Date/time seen: 03/19/22 08:00 Interval history: 66 yo F with PMHs of hypertension, HLD, hypothyroidism, MIO, prediabetes, and migrains who presented here from primary care after routine labs showed elevated Creatinine and low potassium. She is feeling fine today. She has no urinary symptoms, chest pain, shortness of breath, fevers, or chills. She has some left leg stiffness which resolved when she got up to ambulate to the bathroom. Review of Systems Review of Systems: All systems reviewed & are unremarkable except as noted in HPI and below Exam Narrative: General: Well-nourished, well-appearing 66-year-old female, sitting up in bed, comfortable, NARD Neuro: awake, alert and oriented x4, speech clear, no focal neuro deficits noted HEENMT: normocephalic, atraumatic, EOMI, sclerae anicteric, moist oral mucosa Respiratory: clear to auscultation bilaterally, nonlabored breathing Cardio: regular rate, regular rhythm with S1-S2 Abdomen: nondistended, normoactive bowel sounds, soft, nontender to palpation : No CVA tenderness Extremities: no edema, erythema, or tenderness to palpation, DP pulses 2+ bilaterally Skin: no rashes or lesions, warm and dry Psych: appropriate mood and affect, judgment and insight intact Objective Data Vital Signs Vital Signs: Vital Signs - 24 hr 03/18/22 12:00 03/18/22 14:00 03/18/22 16:00 Temperature 97.6 F Pulse Rate 61 66 64 Respiratory Rate 16 Blood Pressure 126/67 Pulse Oximetry 98 03/18/22 20:00 0
[2022-03-19] MEDS: POTASSIUM CHLORIDE 20 MEQ TABLET 40 MEQ PO (10:29)
[2022-03-19] MEDS: ROSUVASTATIN 10 MG TABLET 20 MG PO (10:30)
[2022-03-19] MEDS: PANTOPRAZOLE 40 MG TABLET PO (10:30)
[2022-03-19] MEDS: ACYCLOVIR 400 MG TABLET BY MOUTH ×2 (10:30→20:34)
[2022-03-19] MEDS: AZELASTINE HCL NASAL 0.1% 137 MCG/SPR 30 ML BTL 2 SPRAY NASAL ×2 (10:30→20:34)
[2022-03-19] MEDS: ASPIRIN 81 MG ENTERIC TABLET PO (10:30)
[2022-03-19] MEDS: SODIUM CHLORIDE 0.9% IV 500 ML IV CONT (10:34)
[2022-03-19] MEDS: LORATADINE/PSEUDOEPHEDRINE (*CRX) 10/240 MG TABLET ER 24 HR 1 TAB PO (11:02)
[2022-03-19 11:25] LABS: Free T4 Free Thyroxine Reflex 2.22 ng/dL (0.78-2.19)
--- NOTE | 2022-03-19 11:35 | PC.NURSE ---
To GI Lab via [facility].
[2022-03-19 12:38] LABS: Iron 64 ug/dL (37-170)
[2022-03-19 12:47] LABS: Percent Iron Saturation 24 % (20-50)
--- NOTE | 2022-03-19 13:50 | PC.NURSE ---
Back from GI Lab via stretcher.
[2022-03-19] MEDS: LACTATED RINGERS 1,000 ML 125 ML IV CONT ×2 (14:15→22:21)
[2022-03-19 15:50] LABS: IFOB Positive Control Positive; Immunochemical Fecal Occult Bl Negative (N)
[2022-03-20] VITALS (10 sets, daily range): BP systolic 110–114; BP diastolic 49–69; PULSE 59–99; RESP 16–18; TEMP 36.1–36.6; O2SAT 98–100
[2022-03-20] MEDS: LACTATED RINGERS 1,000 ML 125 ML IV CONT (06:30)
[2022-03-20] MEDS: LEVOTHYROXINE SODIUM 112 MCG TABLET BY MOUTH (06:30)
[2022-03-20] MEDS: AZELASTINE HCL NASAL 0.1% 137 MCG/SPR 30 ML BTL 2 SPRAY NASAL ×2 (08:15→20:41)
[2022-03-20] MEDS: PANTOPRAZOLE 40 MG TABLET PO (08:15)
[2022-03-20] MEDS: ROSUVASTATIN 10 MG TABLET 20 MG PO (08:16)
[2022-03-20] MEDS: ACYCLOVIR 400 MG TABLET BY MOUTH ×2 (08:16→20:42)
[2022-03-20] MEDS: ASPIRIN 81 MG ENTERIC TABLET PO (08:16)
[2022-03-20] MEDS: LORATADINE/PSEUDOEPHEDRINE (*CRX) 10/240 MG TABLET ER 24 HR 1 TAB PO (08:17)
[2022-03-20 08:48] LABS: Hematocrit 26.1 % (37.0-47.0); Hemoglobin 8.7 g/dL (12.0-15.0); Mean Corpuscular HGB Conc 33.3 g/dl (32-36); Mean Corpuscular Hemoglobin 28.7 pg (26-34); Mean Corpuscular Volume 86.1 fl (80-100); Mean Platelet Volume 9.1 fl (7.4-10.4); Platelet Count Result 225 k/mm3 (150-375); Red Blood Count 3.03 M/mm3 (4.2-5.4); Red Cell Distribution Width 18.2 % (11.5-14.5); White Blood Count 8.7 K/mm3 (4.5-10.0)
[2022-03-20 09:02] LABS: Alanine Aminotransferase 11 U/L (6-35); Albumin Level 3.3 g/dL (3.5-5.1); Alkaline Phosphatase 61 U/L (38-126); Anion Gap 8 mmol/L (8-16); Aspartate Amino Transferase 21 U/L (14-36); Bilirubin,Total 0.7 mg/dL (0.2-1.3); Blood Urea Nitrogen 21 mg/dL (7-17); Calcium 8.7 mg/dL (8.4-10.2); Carbon Dioxide 22 mmol/L (22-30); Chloride 110 mmol/L (98-107); Estimated CRCL calculation 38 ml/min; Estimated Glomerular Filt Rate 32; Glucose 103 mg/dL (65-110); Potassium 3.1 mmol/L (3.4-5.0); Sodium 140 mmol/L (137-145)
[2022-03-20] MEDS: SODIUM CHLORIDE 0.9% IV 1,000 ML 125 ML IV CONT ×2 (12:32→20:42)
--- NOTE | 2022-03-20 12:48 | PM.CNNEP ---
Assessment and Plan Additional Plan 1. Kathleen has acute kidney injury. Her baseline creatinine is normal. In December her creatinine is 1.09 and in February it was 1.16. In July was 1.1 and before this admission it was up to 3.5. She has been lightheaded when standing and her blood pressure has been low while in the hospital. It is possible that because of the weight loss she does not need as much blood pressure medication and her blood pressure has been running low at home. this effect has probably been more and more of an issue as she has lost more and more weight and so her creatinine has been slowly rising over the year. Now her blood pressure is in the 70s and her creatinine is 3.5. So I suspect that pre renal azotemia is the main reason for this. She has been getting some IV fluids and her creatinine has improved accordingly. Other issues a possible also. Glomerulonephritis is possible however this would be getting better with fluids alone. She did have some protein in the urine and inactive sediment but more consistent with infection then glomerulonephritis. We can check some serology and immunofixation If her creatinine does not come down to normal or if she continues to have proteinuria after treatment of the UTI. Rhabdomyolysis is possible because she is on a statin. Will check a CK. Vascular disease and infiltrative disease would be unlikely in this clinical scenario. her low blood pressure could be a result of adrenal insufficiency I suppose. Will check a cortisol level. 2. The patient has low potassium. She is on hydrochlorothiazide. Perhaps when she was eating more she was also taking in more potassium. Now that she is eating less and losing weight, she is taking less Potassium in and therefore the balance between hydrochlorothiazide and potassium intake has led to a gradual depletion of total body potassium. Will check a urine potassium to be sure. I will order this for tomorrow since she was on LR today. Will also check a Renin level and aldosterone level, however it would be unlikely that this would be primary hormonal issues since her blood pressure is not high. Renal tubular acidosis is always possible. Interestingly, her urine pH was 6 and not 5. In addition, her bicarbonate level was a little low on admission. will have to see what happens after she has recovered. 3. The patient is anemic. Stool Hemoccult is negative. Transferrin saturation is 24. Platelet count is okay, speaking against H U.S./TTP. will check a retake count and LDH. Will also check a B12 and folate since she has been losing weight and vitamin deficiency is a possibility. If her creatinine has been high for a few weeks then that could lead to this anemia. 4. The patient has hypertension. She is off her antihypertensives now. 5. She has hyperlipidemia. She is on Crestor for this. 6. She has recurrent inguinal herpes. She is on medications for this as well as needed. 7. The patient has hypothyroidism and is on supplements for this. History of Present Illness Reason for Consult Consult date: 03/20/22 Chief Complaint Chief complaint: alberto, uti, low k History of Present Illness Narrative: Froilan is a very pleasant 66-year-old lady who has multiple medical problems including hypertension, hyperlipidemia, hypothyroidism, obesity, chronic headaches, does hydro to get some a, mild reactive airways disease, obstructive sleep apnea treated with an oral appliance suboptimally, and pre diabetes. The patient says that since July she has been on a weight loss kick. Back then she did 4 days of broth only. After that she has been intermittently fasting, i.e. she eats all of her calories within 8 hours of the day. So she fast 16 hours each day usually between 8:00 p.m. and noon. She has a light lunch like a salad and then has a healthy dinner. she has successfully lost about 10 lb per month. She has been feeling pretty
--- NOTE | 2022-03-20 13:24 | PM.IMPN ---
Progress Note: A&P Assessment and Plan (1) BONIFACIO (acute kidney injury): Code(s): N17.9 - Acute kidney failure, unspecified Status: Acute Assessment and Plan: BUN/CR improving slowly Patient does have a UTI Renal ultrasound showed normal kidneys without hydronephrosis. CK mildly elevated No urine eosinophils seen Bp medication on hold CT scan shows -No acute abdominopelvic process. Para-aortic lymphadenopathy. Nephrology rounding trying to rule out other causes of BONIFACIO continue to treat UTI and stop ARB for now -creat is improving (2) Acute hypokalemia: Code(s): E87.6 - Hypokalemia Status: Acute Assessment and Plan: Improved after supplementation Continue to watch BMP (3) Abnormal urinalysis: Code(s): R82.90 - Unspecified abnormal findings in urine Status: Acute Assessment and Plan: Urine culture shows e. Coli. Will continue Rocephin IV which is sensitive (4) Hypertension: Code(s): I10 - Essential (primary) hypertension Status: Acute Assessment and Plan: Blood pressures is 112/49 (5) Hypothyroidism (acquired): Code(s): E03.9 - Hypothyroidism, unspecified Status: Acute Assessment and Plan: Supratherapeutic on levothyroxine (6) Anemia: Code(s): D64.9 - Anemia, unspecified Status: Acute Assessment and Plan: Continue to monitor hb/ hct. Pts last colonoscopy 2018, per the patient, was normal. Father with history of colon cancer Additional Plan Subjective Date/time seen: 03/20/22 13:24 Interval history: 66 yo F with PMHs of hypertension, HLD, hypothyroidism, MIO, prediabetes, and migrains who presented here from primary care after routine labs showed elevated Creatinine and low potassium. ? cause of BONIFACIO nephrology investigating ? continue to treat for UTI and stop ARB Review of Systems Review of Systems: All systems reviewed & are unremarkable except as noted in HPI and below Exam Const: General: cooperative and healthy appearing; No in distress Nutritional Appearance: overweight Orientation/consciousness: oriented to person HENMT: Head: normal to inspection Resp: Effort & Inspection: no respiratory distress Auscultation: no rhonchi and no wheezes Cardio: Rate: regular rate Rhythm: regular rhythm GI: Inspection: normal to inspection GI Palp: No abdominal tenderness, No Guarding due to palpation present (GI) and No Hepatomegaly present Auscultation: normal bowel sounds Neuro: General: oriented to person Objective Data Vital Signs Vital Signs: Vital Signs - 24 hr 03/19/22 14:00 03/19/22 16:00 03/19/22 20:00 Temperature 36.2 C L Pulse Rate 70 76 69 Respiratory Rate 18 Blood Pressure 103/61 Pulse Oximetry 100 03/19/22 21:39 03/20/22 00:00 03/20/22 04:00 Temperature 36.2 C L Pulse Rate 68 87 59 L Respiratory Rate 18 Blood Pressure 104/55 L Pulse Oximetry 98 03/20/22 05:50 03/20/22 08:20 Temperature 36.1 C L Pulse Rate 99 Respiratory Rate 18 Blood Pressure 112/49 L Pulse Oximetry 99 98 Intake/Output Intake/Output: Intake & Output 03/17/22 03/18/22 03/19/22 03/20/22 23:59 23:59 23:59 23:59 Intake Total 100 4960 3380 1680 Balance 100 4960 3380 1680 Meds/Results Medications: Active Medications Generic Name Dose Route Start Last Admin Trade Name Freq PRN Reason Stop Dose Admin Acetaminophen 650 mg 03/18/22 12:48 Acetaminophen 325 Mg Tablet PO Q4H PRN Pain 1-3 Acyclovir 400 mg 03/18/22 21:40 03/20/22 08:16 Acyclovir 400 Mg Tablet BY MOUTH 400 mg Q12HR NEL Administration Aspirin 81 mg 03/19/22 09:00 03/20/22 08:16 Aspirin 81 Mg Enteric Tablet PO 81 mg DAILY NEL Administration Azelastine HCl 2 spray 03/18/22 21:40 03/20/22 08:15 Azelastine Hcl Nasal 0.1% 137 Mcg/Spr 30 Ml Btl NASAL 2 spray Q12HR NEL A
[2022-03-20 13:56] LABS: Creatinine Urine 31.7 mg/dL
[2022-03-20 13:57] LABS: Potassium Urine Random 17.1 meq/L; Sodium Urine Random 53 meq/L
[2022-03-21] VITALS (9 sets, daily range): BP systolic 110–117; BP diastolic 57–64; PULSE 62–70; RESP 16–18; TEMP 36.3–36.7; O2SAT 92–100
[2022-03-21] MEDS: SODIUM CHLORIDE 0.9% IV 1,000 ML 125 ML IV CONT ×3 (05:29→23:51)
[2022-03-21] MEDS: LEVOTHYROXINE SODIUM 112 MCG TABLET BY MOUTH (05:30)
[2022-03-21 06:26] LABS: Immature Reticulocyte Fraction 12.8 % (3.0-15.9); Reticulocyte Hemoglobin Conten 36.6 pg (28.2-35.7); Reticulocyte Percent 1.71 % (0.7-4.3); Reticulocytes Absolute 0.05 B/L (32.2-175.7)
[2022-03-21 06:30] LABS: Albumin Level 3.1 g/dL (3.5-5.1); Anion Gap 9 mmol/L (8-16); Blood Urea Nitrogen 18 mg/dL (7-17); Calcium 7.8 mg/dL (8.4-10.2); Carbon Dioxide 20 mmol/L (22-30); Chloride 109 mmol/L (98-107); Creatine Kinase 90 U/L (30-135); Estimated CRCL calculation 47 ml/min; Estimated Glomerular Filt Rate 41; Glucose 96 mg/dL (65-110); Lactate Dehydrogenase 423 U/L (313-618); Phosphorus 3.5 mg/dL (2.5-4.5); Potassium 3.1 mmol/L (3.4-5.0); Sodium 138 mmol/L (137-145)
[2022-03-21 07:01] LABS: Cortisol Random 9.17 ug/dL
[2022-03-21 08:01] LABS: Folic Acid 5.7 ng/mL (2.76->20)
[2022-03-21] MEDS: LORATADINE/PSEUDOEPHEDRINE (*CRX) 10/240 MG TABLET ER 24 HR 1 TAB PO (08:11)
[2022-03-21] MEDS: POTASSIUM CHLORIDE 20 MEQ TABLET PO (08:11)
[2022-03-21] MEDS: AZELASTINE HCL NASAL 0.1% 137 MCG/SPR 30 ML BTL 2 SPRAY NASAL ×2 (08:11→20:14)
[2022-03-21] MEDS: POTASSIUM CHLORIDE 20 MEQ TABLET 40 MEQ PO ×2 (08:11→20:13)
[2022-03-21] MEDS: ROSUVASTATIN 10 MG TABLET 20 MG PO (08:12)
[2022-03-21] MEDS: PANTOPRAZOLE 40 MG TABLET PO (08:12)
[2022-03-21] MEDS: ASPIRIN 81 MG ENTERIC TABLET PO (08:12)
[2022-03-21] MEDS: ACYCLOVIR 400 MG TABLET BY MOUTH ×2 (08:12→20:13)
--- NOTE | 2022-03-21 12:16 | PM.PNNEP ---
Progress Note: A&P Additional Plan 1. Kathleen has acute kidney injury. Her baseline creatinine is normal. In December her creatinine is 1.09 and in February it was 1.16. In July was 1.1 and before this admission it was up to 3.5. Renal sonogram negative. Urine eosinophils negative. Urine sodium not low but this was late in the hospital stay. CPK is normal Now her creatinine has fallen to 1.3. most likely this is acute kidney injury from dehydration and low blood pressure. Cortisol level was only 9. Will check Cortrosyn stim test. 2. The patient has low potassium. urine potassium is low. This is most likely Due to total body potassium depletion as a result of longstanding hydrochlorothiazide therapy during a period of low-potassium intake. 3. The patient is anemic. Stool Hemoccult is negative. Transferrin saturation is 24. B12 and folate okay. retic count is not very high at 1.71. This is mostly because of the iron deficiency. will give Venofer while here and she can continue with oral iron at discharge 4. The patient has hypertension. She is off her antihypertensives now. 5. She has hyperlipidemia. She is on Crestor for this. 6. She has recurrent inguinal herpes. She is on medications for this as well as needed. 7. The patient has hypothyroidism and is on supplements for this. Subjective Date/time seen: 03/21/22 12:16 Interval history: Patient feels okay. She is up And just finished doing her ADLs. no shortness of breath or swelling. Review of Systems Cardiovascular: Cardiovascular: Reports no additional cardiovascular complaints Respiratory: Respiratory: Reports no additional respiratory complaints Gastrointestinal: Gastrointestinal: Reports no additional gastrointestinal complaints Genitourinary: Genitourinary: Reports no additional female genitourinary complaints Exam Narrative: WDWN in NAD skin no rash head ncat lungs clear cor reg no rub abd BS+ nontender and soft ext no edema. Objective Data Vital Signs Vital Signs: Vital Signs - 24 hr 03/20/22 14:00 03/20/22 16:00 03/20/22 20:00 Temperature 36.1 C L Pulse Rate 64 62 65 Respiratory Rate 16 Blood Pressure 114/69 Pulse Oximetry 100 03/20/22 21:36 03/21/22 00:00 03/21/22 04:00 Temperature 36.6 C Pulse Rate 68 63 62 Respiratory Rate 18 Blood Pressure 110/63 Pulse Oximetry 99 03/21/22 06:00 Temperature 36.3 C L Pulse Rate 64 Respiratory Rate 18 Blood Pressure 117/64 Pulse Oximetry 99 Intake/Output Intake/Output: Intake & Output 03/18/22 03/19/22 03/20/22 03/21/22 23:59 23:59 23:59 23:59 Intake Total 4960 3380 4250 1540 Balance 4960 3380 4250 1540 Meds/Results Medications: Active Medications Generic Name Dose Route Start Last Admin Trade Name Freq PRN Reason Stop Dose Admin Acetaminophen 650 mg 03/18/22 12:48 Acetaminophen 325 Mg Tablet PO Q4H PRN Pain 1-3 Acyclovir 400 mg 03/18/22 21:40 03/21/22 08:12 Acyclovir 400 Mg Tablet BY MOUTH 400 mg Q12HR NEL Administration Aspirin 81 mg 03/19/22 09:00 03/21/22 08:12 Aspirin 81 Mg Enteric Tablet PO 81 mg DAILY NEL Administration Azelastine HCl 2 spray 03/18/22 21:40 03/21/22 08:11 Azelastine Hcl Nasal 0.1% 137 Mcg/Spr 30 Ml Btl NASAL 2 spray Q12HR NEL Administration Calcium Carbonate 500 mg 03/19/22 09:00 03/21/22 08:12 Calcium/Vitamin D 500 Mg Tablet PO 500 mg QAM NEL Administration Ceftriaxone Sodium/Dextrose 1 gm in 50 mls @ 100 mls/hr 03/18/22 22:00 03/20/22 21:36 Rocephin 1 Gm/D5w 50 Ml IVPB Infused Q24H NEL Infusion Sodium Chloride 1,000 mls @ 125 mls/hr 03/20/22 12:05 03/21/22 05:29 Normal Saline Iv IV CONT 125 mls/hr .Q8H NEL Administration Levothyroxine Sodium 112 mcg 03/19/22 06:30 03/21/22 05:30 Levothyroxine Sodium 112 Mcg Tablet BY MOUTH 112 mcg DAILY@0630 NEL Administration Loratadine/Pseu
--- NOTE | 2022-03-21 12:35 | PM.IMPN ---
Progress Note: A&P Assessment and Plan (1) BONIFACIO (acute kidney injury): Code(s): N17.9 - Acute kidney failure, unspecified Status: Acute Assessment and Plan: BUN/CR improving slowly Patient does have a UTI Renal ultrasound showed normal kidneys without hydronephrosis. CK mildly elevated No urine eosinophils seen Bp medication on hold CT scan shows -No acute abdominopelvic process. Para-aortic lymphadenopathy. Nephrology rounding trying to rule out other causes of BONIFACIO continue to treat UTI and stop ARB for now -creat is improving - 03/21/22: Renal function is back at baseline. Normal US of kidneys, [place] to be secondary to dehydration and low blood pressure, of which she is currently off of all BP meds. (2) Acute hypokalemia: Code(s): E87.6 - Hypokalemia Status: Acute Assessment and Plan: Improved after supplementation Continue to watch BMP 03/21/22: Continues to be low at 3.1. Pt, is given supplemental dose today. Nephrology believes that the persistently low potassium is likely secondary to the chronic HCTZ use as her urine potassium is also low. Will recommend considering supplemental potassium and close recheck on discharge. (3) Abnormal urinalysis: Code(s): R82.90 - Unspecified abnormal findings in urine Status: Acute Assessment and Plan: Urine culture shows e. Coli. Will continue Rocephin IV which is sensitive - 03/21/22: E. coli UTI that is sensitive to Rocephin. Will continue this IV for now. May transition to oral management as appropriate per Culture and sensitivity upon discharge. (4) Hypertension: Code(s): I10 - Essential (primary) hypertension Status: Acute Assessment and Plan: Blood pressures is 112/49 - 03/21/22: BP stable running 110-1-teens/70s-80s. Continue to hold home BP meds, check VS and monitor labs. (5) Hypothyroidism (acquired): Code(s): E03.9 - Hypothyroidism, unspecified Status: Acute Assessment and Plan: Supratherapeutic on levothyroxine - 03/21/22: Continue Levothyroxine and note the normal Random Cortisol of 9.17. Renin and Aldosterone are pending. (6) Anemia: Code(s): D64.9 - Anemia, unspecified Status: Acute Assessment and Plan: Continue to monitor hb/ hct. Pts last colonoscopy 2019, per the patient, was normal. Father with history of colon cancer - 03/21/22: Acute on chronic. Pt. received IV Venofer here and should continue on oral Iron at discharge. Folate is normal at 5.7 and B12 is normal also. Stool for occult blood is negative. Time Spent With Patient Time with patient: 15 - 25 minutes Subjective Date/time seen: 03/21/22 12:35 This pt. was evaluated at the bedside in interval assessment during her admission for BONIFACIO, UTI, and CK. She is currently on abx for E.coli in her urine. The sensitivity resulted today and it shows that the Klebsiella infection is sensitive to the Rocephin she is currently on. She has received three days of therapy of Rocephin to this point. She continues to be Hypokalemic with a Potassium of 3.1. She is supplemented today. Pt. overall reports that she is feeling better. She is being followed by Nephrology for her BONIFACIO and they note that her creatinine has returned to nomral, her US is negative and CPK as well as Urine sodium is normal. It is believed that the cause of her renal failure was from dehydration and low blood pressure. It is also most likely that her persistently low potassium is due to her chronic HCTZ use. Nephrology notes that pt. is anemic and dosed Venofer here and recommends continuing Iron at discharge. If patient's Potassium is stable tomorrow, she may be discharged to home. Review of Systems Review of Systems: All systems reviewed & are unremarkable except as noted in HPI and below Exam Const: General: comfortable and no acute distress HENMT: Mouth: Yes moist mucous membranes Eyes:
[2022-03-21] MEDS: COSYNTROPIN 0.25 MG/ML VIAL IV PUSH (13:04)
--- NOTE | 2022-03-21 13:04 | PC.NURSE ---
Cortisol blood level drawn and Cosyntropin given.
[2022-03-21] MEDS: IRON SUCROSE COMPLEX 200 MG in SODIUM CHLORIDE 0.9% IV 50 ML 120 MG IVPB (13:06)
[2022-03-21 14:09] LABS: Cortisol Baseline 8.32 ug/dL
[2022-03-22] VITALS: PULSE 67
[2022-03-22 04:00] VITALS: PULSE 65
[2022-03-22] MEDS: LEVOTHYROXINE SODIUM 112 MCG TABLET BY MOUTH (05:32)
[2022-03-22 05:39] VITALS: BP 120/65; PULSE 66; RESP 14; TEMP 36.6; O2SAT 99
[2022-03-22 07:20] LABS: Basophils Absolute Auto 0.1 K/mm3 (0.0-0.1); Basophils Percent Auto 0.7 % (0.2-1.2); Eosinophils Absolute Auto 0.4 K/mm3 (0-0.3); Eosinophils Percent Auto 4.2 % (0-4.4); Hematocrit 25.8 % (37.0-47.0); Hemoglobin 8.4 g/dL (12.0-15.0); Lymphocytes Percent Auto 17.2 % (18.3-44.2); Mean Corpuscular HGB Conc 32.6 g/dl (32-36); Mean Corpuscular Hemoglobin 28.8 pg (26-34); Mean Corpuscular Volume 88.4 fl (80-100); Mean Platelet Volume 9.3 fl (7.4-10.4); Monocytes Absolute Auto 0.7 K/mm3 (0.1-0.6); Monocytes Percent Auto 6.7 % (2.6-8.5); Neutrophils Absolute Auto 6.9 K/mm3 (1.3-6.7); Neutrophils Percent Auto 70.2 % (45.5-73.1); Platelet Count Result 234 k/mm3 (150-375); Red Blood Count 2.92 M/mm3 (4.2-5.4); Red Cell Distribution Width 18.5 % (11.5-14.5); White Blood Count 9.9 K/mm3 (4.5-10.0)
[2022-03-22 07:26] LABS: Alanine Aminotransferase 10 U/L (6-35); Albumin Level 3.1 g/dL (3.5-5.1); Alkaline Phosphatase 55 U/L (38-126); Anion Gap 7 mmol/L (8-16); Aspartate Amino Transferase 19 U/L (14-36); Bilirubin,Total 0.6 mg/dL (0.2-1.3); Blood Urea Nitrogen 15 mg/dL (7-17); Carbon Dioxide 20 mmol/L (22-30); Chloride 115 mmol/L (98-107); Estimated CRCL calculation 47 ml/min; Estimated Glomerular Filt Rate 41; Glucose 96 mg/dL (65-110); Magnesium 1.7 mg/dL (1.6-2.3); Phosphorus 2.6 mg/dL (2.5-4.5); Potassium 3.6 mmol/L (3.4-5.0); Sodium 142 mmol/L (137-145)
[2022-03-22] MEDS: SODIUM CHLORIDE 0.9% IV 1,000 ML 125 ML IV CONT (07:59)
[2022-03-22 08:00] VITALS: PULSE 81
[2022-03-22 08:52] VITALS: O2SAT 98
[2022-03-22] MEDS: PANTOPRAZOLE 40 MG TABLET PO (09:18)
[2022-03-22] MEDS: CEFDINIR 300 MG CAPSULE PO (09:18)
[2022-03-22] MEDS: ASPIRIN 81 MG ENTERIC TABLET PO (09:18)
[2022-03-22] MEDS: ROSUVASTATIN 10 MG TABLET 20 MG PO (09:18)
[2022-03-22] MEDS: IRON SUCROSE COMPLEX 200 MG in SODIUM CHLORIDE 0.9% IV 50 ML 120 MG IVPB (09:18)
[2022-03-22] MEDS: LORATADINE/PSEUDOEPHEDRINE (*CRX) 10/240 MG TABLET ER 24 HR 1 TAB PO (09:18)
[2022-03-22] MEDS: ACYCLOVIR 400 MG TABLET BY MOUTH (09:18)
[2022-03-22] MEDS: AZELASTINE HCL NASAL 0.1% 137 MCG/SPR 30 ML BTL 2 SPRAY NASAL (09:19)
[2022-03-22 12:00] VITALS: PULSE 73
--- NOTE | 2022-03-22 12:26 | PM.DS ---
DS: Admitting Diagnosis Discharge Date 03/22/2022 Admitting Diagnosis BONIFACIO Hypokalemia DS: Discharge Diagnosis Discharge Diagnosis (1) BONIFACIO (acute kidney injury): Code(s): N17.9 - Acute kidney failure, unspecified Status: Acute Assessment and Plan: BUN/CR improving slowly Patient does have a UTI Renal ultrasound showed normal kidneys without hydronephrosis. CK mildly elevated No urine eosinophils seen Bp medication on hold CT scan shows -No acute abdominopelvic process. Para-aortic lymphadenopathy. Nephrology rounding trying to rule out other causes of BONIFACIO continue to treat UTI and stop ARB for now -creat is improving - 03/21/22: Renal function is back at baseline. Normal US of kidneys, [place] to be secondary to dehydration and low blood pressure, of which she is currently off of all BP meds. --resolved, patient near baseline. Renal function/creatinine 1.3 Continue to avoid nephrotoxic medications (2) Acute hypokalemia: Code(s): E87.6 - Hypokalemia Status: Acute Assessment and Plan: Improved after supplementation Continue to watch BMP 03/21/22: Continues to be low at 3.1. Pt, is given supplemental dose today. Nephrology believes that the persistently low potassium is likely secondary to the chronic HCTZ use as her urine potassium is also low. Will recommend considering supplemental potassium and close recheck on discharge. -resolved, potassium 3.6 (3) Abnormal urinalysis: Code(s): R82.90 - Unspecified abnormal findings in urine Status: Acute Assessment and Plan: Urine culture shows e. Coli. Will continue Rocephin IV which is sensitive - 03/21/22: E. coli UTI that is sensitive to Rocephin. Will continue this IV for now. May transition to oral management as appropriate per Culture and sensitivity upon discharge. Continue cefdinir x7 days (4) Hypertension: Code(s): I10 - Essential (primary) hypertension Status: Acute Assessment and Plan: Blood pressures is 112/49 - 03/21/22: BP stable running 110-1-teens/70s-80s. Continue to hold home BP meds, check VS and monitor labs. Discontinue losartan/hydrochlorothiazide. Blood pressure 120/65 during may need to discuss this further with primary care physician. (5) Hypothyroidism (acquired): Code(s): E03.9 - Hypothyroidism, unspecified Status: Acute Assessment and Plan: Supratherapeutic on levothyroxine - 03/21/22: Continue Levothyroxine and note the normal Random Cortisol of 9.17. Renin and Aldosterone are pending. (6) Anemia: Code(s): D64.9 - Anemia, unspecified Status: Acute Assessment and Plan: Continue to monitor hb/ hct. Pts last colonoscopy 2018, per the patient, was normal. Father with history of colon cancer - 03/21/22: Acute on chronic. Pt. received IV Venofer here and should continue on oral Iron at discharge. Folate is normal at 5.7 and B12 is normal also. Stool for occult blood is negative. Received IV Venofer in the hospital transition to oral iron upon discharge DS: Summary Hospital Course Reason for hospitalization: BONIFACIO Acute hyperkalemia UTI Hypertension Hypothyroid Hospital Course: Patient is a 66-year-old female with past medical history of hypertension, hyperlipidemia, hypothyroidism, suboptimal treated MIO, pre diabetes and migraines who presented to the emergency department after her primary care physician reported her routine labs to her with an elevated creatinine in the lower potassium. Patient reports that she has been feeling has her usual state of health. In the emergency department she reported that she felt completely fine and did not feel ill or have any recent ill or sick contacts. She has been tolerating her diet well. Patient remains hydrated and drinks 8-10 cups of water each day. She denies any nausea, vomiting upset stomach diarrhea, hematuria dysuria or dark colored urine as well as foul-sme
[2022-03-24 20:42] LABS: Erythropoietin (EPO) 33.2 mIU/mL (2.6-18.5)
[2022-03-26 10:03] LABS: Renin 0.59 ng/mL/h (0.25-5.82)
== END 2022-03-22 13:30 | disposition home or self-care (01) | DRG 683 ==
LOC: ANHED 21:42 → ANH3MEDSUR 03-18 02:34
PROVIDERS: Emergency Medicine; Family Medicine; Internal Medicine Nephrology; Physician Assistant; Student in an Organized Health Care Education/Training Program; Admitting Provider Internal Medicine; Emergency Provider Emergency Medicine; PCP Internal Medicine; Visit Provider Nurse Practitioner Adult Health
DX: N17.0 Acute kidney failure with tubular necrosis (principal); N39.0 Urinary tract infection, site not specified; E87.6 Hypokalemia; T50.2X5A Adverse effect of carbonic-anhydrase inhibitors, benzothiadiazides and other diuretics, initial encounter; Z20.822 Contact with and (suspected) exposure to COVID-19; R82.90 Unspecified abnormal findings in urine; E03.9 Hypothyroidism, unspecified; D64.9 Anemia, unspecified; I10 Essential (primary) hypertension; E86.0 Dehydration; K21.9 Gastro-esophageal reflux disease without esophagitis; E78.5 Hyperlipidemia, unspecified; L30.1 Dyshidrosis [pompholyx]; G47.33 Obstructive sleep apnea (adult) (pediatric); R73.03 Prediabetes; B00.9 Herpesviral infection, unspecified; E66.01 Morbid (severe) obesity due to excess calories; Z68.35 Body mass index [BMI] 35.0-35.9, adult; Z79.82 Long term (current) use of aspirin; Z90.49 Acquired absence of other specified parts of digestive tract; Z90.710 Acquired absence of both cervix and uterus
CPT/HCPCS: 36415; 74176; 76775; 80048; 80053; 80069; 82088; 82274; 82533; 82550; 82570; 82607; 82668; 82746; 83540; 83550; 83615; 83735; 84100; 84132; 84133; 84244; 84300; 84439; 84443; 85025; 85027; 85046; 85999; 93005; 96365; 99285; A9270; C9803; J0696; J0834; J1756; J3480; J7030; J7040; J7120; U0003; U0005

== ENCOUNTER 2022-03-30 10:09 | Outpatient (CLI) | payer BC, SELFPAY ==
[2022-03-30 10:33] LABS: Basophils Absolute Auto 0.1 K/mm3 (0.0-0.1); Basophils Percent Auto 0.6 % (0.2-1.2); Eosinophils Absolute Auto 0.5 K/mm3 (0-0.3); Eosinophils Percent Auto 5.5 % (0-4.4); Hematocrit 29.2 % (37.0-47.0); Hemoglobin 9.7 g/dL (12.0-15.0); Immature Granulocyte Absolute 0.05 K/mm3 (0.00-0.031); Immature Granulocyte Percent A 0.6 % (0-0.5); Lymphocytes Absolute Auto 1.69 K/mm3 (0.9-3.2); Lymphocytes Percent Auto 18.6 % (18.3-44.2); Mean Corpuscular HGB Conc 33.2 g/dl (32-36); Mean Corpuscular Hemoglobin 29.5 pg (26-34); Mean Corpuscular Volume 88.8 fl (80-100); Monocytes Absolute Auto 0.7 K/mm3 (0.1-0.6); Monocytes Percent Auto 7.2 % (2.6-8.5); Neutrophils Absolute Auto 6.2 K/mm3 (1.3-6.7); Neutrophils Percent Auto 67.5 % (45.5-73.1); Platelet Count Result 249 k/mm3 (150-375); Red Blood Count 3.29 M/mm3 (4.2-5.4); Red Cell Distribution Width 18.9 % (11.5-14.5); White Blood Count 9.1 K/mm3 (4.5-10.0)
[2022-03-30 12:23] LABS: Alanine Aminotransferase 14 U/L (6-35); Albumin Level 3.9 g/dL (3.5-5.1); Alkaline Phosphatase 71 U/L (38-126); Anion Gap 9 mmol/L (8-16); Aspartate Amino Transferase 57 U/L (14-36); Bilirubin,Total 1.2 mg/dL (0.2-1.3); Blood Urea Nitrogen 8 mg/dL (7-17); Calcium 8.8 mg/dL (8.4-10.2); Carbon Dioxide 23 mmol/L (22-30); Chloride 108 mmol/L (98-107); Estimated Glomerular Filt Rate 50; Glucose 95 mg/dL (65-110); Potassium 2.9 mmol/L (3.4-5.0); Sodium 140 mmol/L (137-145)
[2022-03-30 12:32] LABS: Cholesterol 140 mg/dL (0-200); HDL Direct 47 mg/dL; Triglycerides 104 mg/dL (<150)
[2022-03-30 12:43] LABS: LDL Cholesterol Direct 56 mg/dL
[2022-03-30 13:09] LABS: Vitamin D 25 Hydroxy 81.1 ng/mL
== END 2022-03-30 10:10 | disposition home or self-care (01) ==
LOC: ANHLAB 10:11
PROVIDERS: Nurse Practitioner Family; PCP Internal Medicine; Visit Provider Internal Medicine
DX: D64.9 Anemia, unspecified (principal); E87.6 Hypokalemia; N17.9 Acute kidney failure, unspecified; E55.9 Vitamin D deficiency, unspecified; I10 Essential (primary) hypertension; R73.03 Prediabetes; R79.89 Other specified abnormal findings of blood chemistry; Z79.899 Other long term (current) 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
CPT/HCPCS: 36415; 80053; 80061; 82306; 85025

== ENCOUNTER 2022-04-05 11:17 | Outpatient (CLI) | payer BC, SELFPAY ==
[2022-04-05 11:37] LABS: Basophils Absolute Auto 0.1 K/mm3 (0.0-0.1); Basophils Percent Auto 0.8 % (0.2-1.2); Eosinophils Absolute Auto 0.5 K/mm3 (0-0.3); Eosinophils Percent Auto 5.7 % (0-4.4); Hematocrit 31.6 % (37.0-47.0); Hemoglobin 9.9 g/dL (12.0-15.0); Immature Granulocyte Absolute 0.04 K/mm3 (0.00-0.031); Immature Granulocyte Percent A 0.4 % (0-0.5); Lymphocytes Absolute Auto 1.92 K/mm3 (0.9-3.2); Lymphocytes Percent Auto 21.4 % (18.3-44.2); Mean Corpuscular HGB Conc 31.3 g/dl (32-36); Mean Corpuscular Hemoglobin 28.9 pg (26-34); Mean Corpuscular Volume 92.4 fl (80-100); Mean Platelet Volume 8.9 fl (7.4-10.4); Monocytes Absolute Auto 0.7 K/mm3 (0.1-0.6); Monocytes Percent Auto 7.4 % (2.6-8.5); Neutrophils Absolute Auto 5.8 K/mm3 (1.3-6.7); Neutrophils Percent Auto 64.3 % (45.5-73.1); Platelet Count Result 280 k/mm3 (150-375); Red Blood Count 3.42 M/mm3 (4.2-5.4); Red Cell Distribution Width 18.6 % (11.5-14.5)
[2022-04-05 13:23] LABS: Anion Gap 7 mmol/L (8-16); Blood Urea Nitrogen 15 mg/dL (7-17); Calcium 8.9 mg/dL (8.4-10.2); Carbon Dioxide 24 mmol/L (22-30); Chloride 109 mmol/L (98-107); Estimated Glomerular Filt Rate 45; Glucose 94 mg/dL (65-110); Potassium 4.5 mmol/L (3.4-5.0); Sodium 140 mmol/L (137-145)
== END 2022-04-05 11:18 | disposition home or self-care (01) ==
LOC: ANHLAB 11:18
PROVIDERS: PCP Internal Medicine; Visit Provider Internal Medicine Hematology & Oncology
DX: E87.6 Hypokalemia (principal); D64.9 Anemia, unspecified
CPT/HCPCS: 36415; 80048; 85025

== ENCOUNTER 2022-04-16 04:25 | Day surgery (SDC) | payer BC, SELFPAY ==
[2022-04-09 14:04] VITALS: BMI 37.7
--- NOTE | 2022-04-16 08:50 | WPDANESEPPF ---
Anes - Initial Pre Proc Eval Procedure: Operation Date: 04/16/22 11:00 Proposed Procedures p Colonoscopy - Manuel Horowitz MD Date/Time: 04/16/22 08:50 Surgeon: Manuel Horowitz MD Pre Op Diagnosis: anemia Patient Data Age: 66 Gender: F Height: 1.66 m Weight: 104.5 kg Allergies Allergy/AdvReac Type Severity Reaction Status Date / Time codeine Allergy Rash Verified 04/16/22 09:39 Home Medications Medication Instructions Recorded Confirmed Type aspirin 81 mg tablet,delayed 81 mg PO DAILY 09/05/19 04/14/22 History release (Aspir-) calcium-vitamin D3-vitamin K 500 1 tablet PO DAILY 09/05/19 04/14/22 History mg-100 unit-40 mcg chewable tablet loratadine-pseudoephedrine ER 10 1 tablet PO PRN PRN Allergy 10/16/19 04/14/22 History mg-240 mg tablet,extended Symptoms [id number] (Loratadine-D) omeprazole 20 mg capsule,delayed 20 mg PO DAILY 10/16/19 04/14/22 History release betamethasone dipropionate 0.05 % 1 applic topical BID PRN rash #45 10/14/20 04/14/22 Rx topical cream grams cholecalciferol (vitamin D3) 1,250 1,250 mcg PO MONTHLY 08/17/21 04/14/22 History mcg (50,000 unit) capsule rosuvastatin 20 mg tablet 20 mg PO DAILY #90 tabs 08/17/21 04/14/22 Rx rimegepant 75 mg disintegrating 75 mg PO ONCE PRN migraine 10/20/21 04/14/22 Rx tablet (Nurtec ODT) headache #30 tabs azelastine 137 mcg (0.1 %) nasal 2 spray intranasal Q12H #30 mL 02/04/22 04/14/22 Rx spray aerosol ferrous sulfate 325 mg (65 mg 325 mg PO DAILY #30 tabs 03/22/22 04/14/22 Rx iron) tablet (Iron (ferrous sulfate)) potassium chloride 20 mEq 20 meq PO BID 04/05/22 04/14/22 History tablet,extended release acyclovir 400 mg tablet 400 mg PO BID 04/09/22 04/14/22 History levothyroxine 112 mcg tablet 112 mcg PO DAILY 04/09/22 04/14/22 History losartan 100 1 tablet PO DAILY 04/09/22 04/14/22 History mg-hydrochlorothiazide 12.5 mg tablet sodium sul 1.479 gram-potas ch See Rx Instructions PO PER PKG DIR 04/09/22 04/14/22 Rx 0.188 gram-magnes sul 0.225 gram #24 tabs tablet (Sutab) tizanidine 4 mg tablet 4 mg PO TID 04/09/22 04/14/22 History Patient hx anesthesia problems: none Family hx anesthesia problems: none Results Review: All pre-operative results and documents have been reviewed as part of the pre-operative evaluation. [facility] Past Medical History Medical History (Updated 04/16/22 @ 08:51 by Shimon Valero MD) Agat[place] coronary artery calcium score between 100 and 199 Bilateral low back pain with sciatica BMI 36.0-36.9,adult BMI 37.0-37.9, adult Chest pain Chronic cough Chronic headaches Dyshidrotic eczema Dysphagia Elevated LFTs Essential (primary) hypertension GERD (gastroesophageal reflux disease) Hyperlipidemia Hypertension Hypokalemia Hypothyroidism (acquired) Mild persistent reactive airway disease without complication Mild reactive airways disease Mixed hyperlipidemia MIO (obstructive sleep apnea) uses oral appliance occasionally MIO (obstructive sleep apnea) MIO (obstructive sleep apnea) Pre-diabetes Surgical History Surgical History H/O: hysterectomy History of cholecystectomy Family History Family History Father Family history of malignant neoplasm of gastrointestinal tract Rectal Family history of malignant neoplasm Lymphoma Heart disease Mother Family history of pancreatic cancer, Onset Age: 75 Social History Social History Social History: Ms. Weller lives at home with her . She is independent in her daily activities. She works full-time. Her primary care provider is Dr. Rock Early. She designates her , Denis (goes by Johnny) as her surrogate decision maker. She would like to be a full code. Smoking status: Never smoker Second hand tobacco smoke exp
[2022-04-16 09:42] VITALS: BP 146/83; PULSE 90; RESP 20; TEMP 36.3; O2SAT 99; BMI 35.9
[2022-04-16] MEDS: LACTATED RINGERS 1,000 ML 150 ML IV CONT (09:49)
--- NOTE | 2022-04-16 10:14 | WPDHPUPDATE1 ---
History and Physical Update Update Date/Time: 04/16/22 10:14 History and Physical has been reviewed, including an updated exam of the patient. There are NO changes in the patient's condition. Risks, benefits, and alternatives have been discussed and questions answered. Patient agrees to proceed with procedure.
[2022-04-16 11:05] VITALS: BP 137/80; PULSE 78; RESP 26; O2SAT 99
[2022-04-16 11:15] VITALS: BP 142/72; PULSE 74; RESP 22; O2SAT 100
[2022-04-16 11:25] VITALS: BP 137/84; PULSE 71; RESP 24; O2SAT 100
== END 2022-04-16 11:35 | disposition home or self-care (01) ==
PROVIDERS: PCP Internal Medicine; Visit Provider Internal Medicine Gastroenterology
PROC: 0DJD8ZZ Inspection of Lower Intestinal Tract, Via Natural or Artificial Opening Endoscopic (ICD-10-PCS; CPT 45378; principal; 2022-04-16 11:00)
DX: D64.9 Anemia, unspecified (principal); K63.5 Polyp of colon; K64.8 Other hemorrhoids; K57.30 Diverticulosis of large intestine without perforation or abscess without bleeding; Z80.0 Family history of malignant neoplasm of digestive organs; I10 Essential (primary) hypertension; K21.9 Gastro-esophageal reflux disease without esophagitis; E03.9 Hypothyroidism, unspecified; J45.20 Mild intermittent asthma, uncomplicated; E78.2 Mixed hyperlipidemia; G47.33 Obstructive sleep apnea (adult) (pediatric); R73.03 Prediabetes; Z79.82 Long term (current) use of aspirin; E66.9 Obesity, unspecified; Z68.36 Body mass index [BMI] 36.0-36.9, adult
CPT/HCPCS: 45385; 88305; J2704; J7120

== ENCOUNTER 2022-05-05 10:19 | Outpatient (CLI) | payer BC, SELFPAY ==
[2022-05-05 14:19] LABS: Albumin Level 4.4 g/dL (3.5-5.1); Anion Gap 4 mmol/L (8-16); Blood Urea Nitrogen 17 mg/dL (7-17); Calcium 9.3 mg/dL (8.4-10.2); Carbon Dioxide 31 mmol/L (22-30); Chloride 102 mmol/L (98-107); Estimated Glomerular Filt Rate 50; Glucose 104 mg/dL (65-110); Phosphorus 4.2 mg/dL (2.5-4.5); Potassium 3.9 mmol/L (3.4-5.0); Sodium 137 mmol/L (137-145)
== END 2022-05-05 10:20 | disposition home or self-care (01) ==
PROVIDERS: PCP Internal Medicine; Visit Provider Internal Medicine Nephrology
DX: E87.5 Hyperkalemia (principal); N18.31 Chronic kidney disease, stage 3a
CPT/HCPCS: 36415; 80069

== ENCOUNTER 2022-06-23 08:52 | Outpatient (CLI) | payer BC, SELFPAY ==
--- NOTE | ~2022-06-23 | XR_ITS ---
EXAMINATION: XR UGIAC w barium swallow DATE: 06/23/2022 09:38 INDICATION: Dysphagia. EXAMINATION: XR UGIAC w barium swallow DATE: 06/23/2022 09:38 INDICATION: TECHNIQUE: The patient drank thick barium, gas-producing crystals, and thin barium. Fluoroscopic spot radiographs of the hypopharynx, esophagus, stomach and proximal small bowel were obtained. Fluorosco py exposure time was 2.6 minutes. A total of 1426 fluoroscopic images were obtained. COMPARISON: None. FINDINGS: The pharynx is symmetric and without evidence of mass lesion or mucosal irregularity. The esophagus i s normal without mass or fixed stricture. Esophageal dysmotility with weakening of the primary and se condary peristaltic waves in the mid to distal esophagus with ineffectual tertiary contractions in th e distal esophagus. There is a small sliding-type hiatal hernia with subtle residual esophageal a rin g without significant stenosis at the gastroesophageal junction which is located approximately 3 cm a veronika level of the diaphragm. There was no gastroesophageal reflux with provocative maneuvers. The sto mach and proximal small bowel are normal. IMPRESSION: 1. Small sliding-type hiatal hernia with partial esophageal A ring at the level of the gastroesophage al junction without significant stenosis. 2. Esophageal dysmotility with weakening of the primary and secondary peristaltic waves with tertiary contractions in the distal third of the esophagus. Reviewed, dictated and finalized at location A. IMPRESSION: 1. Small sliding-type hiatal hernia with partial esophageal A ring at the level of the gastroesophageal junction without significant stenosis. 2. Esophageal dysmotility with weakening of the primary and secondary peristalt ic waves with tertiary contractions in the distal third of the esophagus.
== END 2022-06-23 08:53 | disposition home or self-care (01) ==
LOC: ANHIMG 08:53
PROVIDERS: PCP Internal Medicine; Visit Provider Nurse Practitioner Family
DX: R13.10 Dysphagia, unspecified (principal); K44.9 Diaphragmatic hernia without obstruction or gangrene; K22.89 Other specified disease of esophagus
CPT/HCPCS: 74246

== ENCOUNTER 2022-08-17 07:05 | Outpatient (CLI) | payer BC, SELFPAY ==
[2022-08-17 07:36] LABS: Basophils Absolute Auto 0.1 K/mm3 (0.0-0.1); Basophils Percent Auto 0.7 % (0.2-1.2); Eosinophils Absolute Auto 0.3 K/mm3 (0-0.3); Eosinophils Percent Auto 4.3 % (0-4.4); Hematocrit 33.4 % (37.0-47.0); Hemoglobin 11.1 g/dL (12.0-15.0); Immature Granulocyte Absolute 0.03 K/mm3 (0.00-0.031); Immature Granulocyte Percent A 0.4 % (0-0.5); Lymphocytes Absolute Auto 1.36 K/mm3 (0.9-3.2); Mean Corpuscular HGB Conc 33.2 g/dl (32-36); Mean Corpuscular Hemoglobin 28.7 pg (26-34); Mean Corpuscular Volume 86.3 fl (80-100); Monocytes Absolute Auto 0.5 K/mm3 (0.1-0.6); Monocytes Percent Auto 6.9 % (2.6-8.5); Neutrophils Absolute Auto 4.9 K/mm3 (1.3-6.7); Neutrophils Percent Auto 68.7 % (45.5-73.1); Platelet Count Result 215 k/mm3 (150-375); Red Blood Count 3.87 M/mm3 (4.2-5.4); Red Cell Distribution Width 14.1 % (11.5-14.5); White Blood Count 7.2 K/mm3 (4.5-10.0)
[2022-08-17 07:46] LABS: Alanine Aminotransferase 13 U/L (6-35); Alkaline Phosphatase 62 U/L (38-126); Anion Gap 9 mmol/L (8-16); Aspartate Amino Transferase 18 U/L (14-36); Bilirubin,Total 1.5 mg/dL (0.2-1.3); Blood Urea Nitrogen 13 mg/dL (7-17); Carbon Dioxide 27 mmol/L (22-30); Chloride 105 mmol/L (98-107); Cholesterol 145 mg/dL (0-200); Estimated Glomerular Filt Rate 50; Glucose 108 mg/dL (65-110); HDL Direct 57 mg/dL; Potassium 3.7 mmol/L (3.4-5.0); Sodium 141 mmol/L (137-145); Triglycerides 84 mg/dL (<150)
[2022-08-17 07:46] LABS: Add Urine Microscopic? YES; Appearance Urine Clear (Clear); Bilirubin Urine Negative (Negative); Blood Urine 2+ (Negative); Color Urine Yellow (Yellow); Glucose Urine UA Negative (Negative); Ketones Urine Negative (Negative); Leukocyte Esterase Ur Negative LEU/UL (Negative); Mucus Urine Rare /lpf; Nitrate Urine Negative (Negative); Protein Urine Negative (Negative); RBC Urine 0-2 /hpf (0-2); Specific Grav Ur 1.013 (1.001-1.035); Squamous Epithelial Cell Urine Rare /hpf (Few); Urobilinogen Urine Negative mg/dL (<2.0); WBC Urine 0-3 /hpf
[2022-08-17 07:48] LABS: Albumin Level 3.9 g/dL (3.5-5.1); Anion Gap 10 mmol/L (8-16); Blood Urea Nitrogen 14 mg/dL (7-17); Carbon Dioxide 27 mmol/L (22-30); Chloride 105 mmol/L (98-107); Estimated Glomerular Filt Rate 56; Glucose 108 mg/dL (65-110); Phosphorus 3.5 mg/dL (2.5-4.5); Potassium 3.6 mmol/L (3.4-5.0); Sodium 142 mmol/L (137-145)
[2022-08-17 07:53] LABS: Creatinine Urine 79.5 mg/dL; Total Protein Urine Random 8 mg/dL
[2022-08-17 07:57] LABS: Erythrocyte Sedimentation Rate 30 mm/hr (0-20); LDL Cholesterol Direct 61 mg/dL; Parathyroid Intact 29.4 pg/mL (7.5-53.5)
[2022-08-17 08:01] LABS: Complement C3 117 mg/dL (88-165)
[2022-08-17 08:15] LABS: Free T4 Free Thyroxine 1.72 ng/mL (0.78-2.19); Thyroid Stimulating Hormone 0.353 uIU/mL (0.465-4.680); Vitamin D 25 Hydroxy 72.7 ng/mL
[2022-08-17 08:37] LABS: Hemoglobin A1C 5.6 % (<5.7)
[2022-08-19 17:53] LABS: Complement Total CH50 >60 U/mL (31-60)
[2022-08-20 19:07] LABS: Albumin 27 %; Measured Kappa Chains <1.00 mg/dL (<2.00); Measured Lambda Chains <1.00 mg/dL (<2.00); Pro/Creat Ratio 168 mg/g creat (<150)
[2022-08-22 02:26] LABS: Kappa\\Lambda Light Chains 2.37 (0.26-1.65); Lambda Light Chain 17.2 mg/L (5.7-26.3)
[2022-08-24 15:20] LABS: Protein,total, 24 Hr Ur 161 mg/24h
== END 2022-08-17 07:06 | disposition home or self-care (01) ==
PROVIDERS: PCP Internal Medicine; Referring Provider Internal Medicine Nephrology; Visit Provider Internal Medicine
DX: R73.03 Prediabetes (principal); I10 Essential (primary) hypertension; E55.9 Vitamin D deficiency, unspecified; E03.9 Hypothyroidism, unspecified; E78.2 Mixed hyperlipidemia; N18.31 Chronic kidney disease, stage 3a
CPT/HCPCS: 36415; 80053; 80061; 80069; 81001; 82306; 82570; 83036; 83883; 83970; 84156; 84439; 84443; 85025; 85652; 86038; 86160; 86162; 86334; 86335

== ENCOUNTER 2022-09-15 13:54 | Outpatient (CLI) | payer BC, SELFPAY ==
[2022-09-15 14:38] LABS: Albumin Level 4.2 g/dL (3.5-5.1); Anion Gap 7 mmol/L (8-16); Blood Urea Nitrogen 16 mg/dL (7-17); Calcium 9.1 mg/dL (8.4-10.2); Carbon Dioxide 29 mmol/L (22-30); Chloride 104 mmol/L (98-107); Estimated Glomerular Filt Rate > 60; Glucose 92 mg/dL (65-110); Phosphorus 2.9 mg/dL (2.5-4.5); Potassium 3.3 mmol/L (3.4-5.0); Sodium 140 mmol/L (137-145)
== END 2022-09-15 13:55 | disposition home or self-care (01) ==
LOC: ANHLAB 13:56
PROVIDERS: PCP Internal Medicine; Visit Provider Internal Medicine Nephrology
DX: N18.31 Chronic kidney disease, stage 3a (principal)
CPT/HCPCS: 36415; 80069

== ENCOUNTER 2022-09-24 09:50 | Outpatient (CLI) | payer BC, SELFPAY ==
[2022-09-24 11:31] LABS: Albumin Level 4.1 g/dL (3.5-5.1); Anion Gap 9 mmol/L (8-16); Blood Urea Nitrogen 15 mg/dL (7-17); Calcium 8.9 mg/dL (8.4-10.2); Carbon Dioxide 25 mmol/L (22-30); Chloride 107 mmol/L (98-107); Estimated Glomerular Filt Rate 56; Glucose 96 mg/dL (65-110); Phosphorus 3.5 mg/dL (2.5-4.5); Potassium 3.5 mmol/L (3.4-5.0); Sodium 141 mmol/L (137-145)
[2022-09-24 11:35] LABS: Potassium Urine Random 43.9 meq/L
[2022-09-29 14:15] LABS: Renin 0.05 ng/mL/h (0.25-5.82)
[2022-09-30 12:10] LABS: Chloride Rand Ur 78 mmol/L (32-290); Chloride/Creatinine Rand Ur 88 (38-318); Creatinine Random Urine 89 mg/dL (20-275)
== END 2022-09-24 09:51 | disposition home or self-care (01) ==
LOC: ANHLAB 09:52
PROVIDERS: PCP Internal Medicine; Visit Provider Internal Medicine Nephrology
DX: E87.4 Mixed disorder of acid-base balance (principal)
CPT/HCPCS: 36415; 80069; 82088; 82436; 82570; 84133; 84244

== ENCOUNTER 2022-12-20 09:18 | Outpatient (CLI) | payer BC, SELFPAY ==
[2022-12-20 10:35] LABS: Cholesterol 159 mg/dL (0-200); HDL Direct 70 mg/dL; Triglycerides 94 mg/dL (<150)
[2022-12-20 10:46] LABS: LDL Cholesterol Direct 55 mg/dL
[2022-12-20 11:11] LABS: Free T4 Free Thyroxine 2.39 ng/mL (0.78-2.19)
[2022-12-20 11:25] LABS: Thyroid Stimulating Hormone 0.029 uIU/mL (0.465-4.680)
[2022-12-20 11:40] LABS: Hemoglobin A1C 5.4 % (<5.7)
== END 2022-12-20 09:19 | disposition home or self-care (01) ==
PROVIDERS: PCP Internal Medicine; Visit Provider Internal Medicine
DX: R73.03 Prediabetes (principal); E78.2 Mixed hyperlipidemia; E03.9 Hypothyroidism, unspecified
CPT/HCPCS: 36415; 80061; 83036; 84439; 84443

== ENCOUNTER → 2023-01-03 13:59 | Outpatient (CLI) | payer BC, SELFPAY ==
--- NOTE | ~2023-01-03 | MM_ITS ---
EXAMINATION: MM screening [facility] BI w mojgan HISTORY: Screening mammogram TECHNIQUE: Craniocaudal and mediolateral oblique 3-D tomosynthesis images were obtained and synthetic 2-D images were generated. CAD analysis was submitted and interpreted. COMPARISON: 11/21/2021, 11/11/2020 BREAST PARENCHYMAL COMPOSITION: The breasts are almost entirely fatty. FINDINGS: Scattered benign-appearing calcifications are present. No suspicious mass, calcification, o r architectural distortion are identified in either breast to suggest malignancy. There has been no s uspicious interval change. IMPRESSION: 1. No mammographic evidence of malignancy. 2. Recommend routine screening mammography in one year. BI-RADS Category 2: Benign finding(s). Reviewed, dictated and finalized at location A. 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
== END ==
PROVIDERS: PCP Internal Medicine; Visit Provider Obstetrics & Gynecology Gynecology
DX: Z12.31 Encounter for screening mammogram for malignant neoplasm of breast (principal)
CPT/HCPCS: 77063; 77067

== ENCOUNTER 2023-02-07 16:56 | Outpatient (CLI) | payer BC, SELFPAY ==
[2023-02-07 17:46] LABS: Free T4 Free Thyroxine 2.34 ng/mL (0.78-2.19)
[2023-02-07 17:58] LABS: Thyroid Stimulating Hormone 0.227 uIU/mL (0.465-4.680)
== END 2023-02-07 16:57 | disposition home or self-care (01) ==
LOC: ANHLAB 16:58
PROVIDERS: PCP Internal Medicine; Visit Provider Internal Medicine
DX: E03.9 Hypothyroidism, unspecified (principal); Z79.899 Other long term (current) 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
CPT/HCPCS: 36415; 84439; 84443

== ENCOUNTER 2023-02-25 09:32 | Outpatient (CLI) | payer BC, SELFPAY ==
[2023-02-25 10:16] LABS: Hematocrit 36.9 % (37.0-47.0); Hemoglobin 12.2 g/dL (12.0-15.0); Mean Corpuscular HGB Conc 33.1 g/dl (32-36); Mean Corpuscular Hemoglobin 29.2 pg (26-34); Mean Corpuscular Volume 88.3 fl (80-100); Mean Platelet Volume 9.6 fl (7.4-10.4); Platelet Count Result 214 k/mm3 (150-375); Red Blood Count 4.18 M/mm3 (4.2-5.4); Red Cell Distribution Width 13.5 % (11.5-14.5); White Blood Count 6.6 K/mm3 (4.5-10.0)
[2023-02-25 10:21] LABS: Creatinine Urine 154.5 mg/dL
[2023-02-25 10:30] LABS: Albumin Level 4.1 g/dL (3.5-5.1); Anion Gap 4 mmol/L (8-16); Blood Urea Nitrogen 17 mg/dL (7-17); Calcium 8.9 mg/dL (8.4-10.2); Carbon Dioxide 33 mmol/L (22-30); Chloride 101 mmol/L (98-107); Estimated Glomerular Filt Rate > 60; Glucose 107 mg/dL (65-110); Phosphorus 3.4 mg/dL (2.5-4.5); Sodium 138 mmol/L (137-145)
[2023-02-25 10:35] LABS: Parathyroid Intact 35.3 pg/mL (7.5-53.5)
[2023-02-25 12:51] LABS: Total Protein Urine Random 6 mg/dL; Ur Ttl Prot Creatinine Ratio 0.04 mg/mg (0-0.20)
== END 2023-02-25 09:33 | disposition home or self-care (01) ==
PROVIDERS: PCP Internal Medicine; Visit Provider Internal Medicine Nephrology
DX: N18.31 Chronic kidney disease, stage 3a (principal)
CPT/HCPCS: 36415; 80069; 82570; 83970; 84156; 85027

== ENCOUNTER 2023-06-21 10:38 | Outpatient (CLI) | payer BC, MEDICARE, SELFPAY ==
[2023-06-21 11:08] LABS: Basophils Absolute Auto 0.1 K/mm3 (0.0-0.1); Basophils Percent Auto 0.7 % (0.2-1.2); Eosinophils Absolute Auto 0.7 K/mm3 (0-0.3); Eosinophils Percent Auto 9.2 % (0-4.4); Hematocrit 37.4 % (37.0-47.0); Hemoglobin 12.2 g/dL (12.0-15.0); Immature Granulocyte Absolute 0.02 K/mm3 (0.00-0.031); Immature Granulocyte Percent A 0.2 % (0-0.5); Lymphocytes Absolute Auto 1.56 K/mm3 (0.9-3.2); Lymphocytes Percent Auto 19.4 % (18.3-44.2); Mean Corpuscular HGB Conc 32.6 g/dl (32-36); Mean Corpuscular Hemoglobin 29.6 pg (26-34); Mean Corpuscular Volume 90.8 fl (80-100); Mean Platelet Volume 9.4 fl (7.4-10.4); Monocytes Absolute Auto 0.6 K/mm3 (0.1-0.6); Monocytes Percent Auto 7.1 % (2.6-8.5); Neutrophils Absolute Auto 5.1 K/mm3 (1.3-6.7); Neutrophils Percent Auto 63.4 % (45.5-73.1); Platelet Count Result 219 k/mm3 (150-375); Red Blood Count 4.12 M/mm3 (4.2-5.4); Red Cell Distribution Width 13.2 % (11.5-14.5); White Blood Count 8.1 K/mm3 (4.5-10.0)
[2023-06-21 11:15] LABS: Hemoglobin A1C 5.5 % (<5.7)
[2023-06-21 11:21] LABS: Alanine Aminotransferase 18 U/L (6-35); Albumin Level 4.2 g/dL (3.5-5.1); Alkaline Phosphatase 75 U/L (38-126); Anion Gap 4 mmol/L (8-16); Aspartate Amino Transferase 24 U/L (14-36); Bilirubin,Total 2.2 mg/dL (0.2-1.3); Blood Urea Nitrogen 19 mg/dL (7-17); Calcium 9.3 mg/dL (8.4-10.2); Carbon Dioxide 32 mmol/L (22-30); Chloride 99 mmol/L (98-107); Cholesterol 148 mg/dL (0-200); Estimated Glomerular Filt Rate 56; Glucose 107 mg/dL (65-110); HDL Direct 68 mg/dL; Potassium 3.4 mmol/L (3.4-5.0); Sodium 135 mmol/L (137-145); Triglycerides 89 mg/dL (<150)
[2023-06-21 11:23] LABS: Appearance Urine Clear (Clear); Bilirubin Urine Negative (Negative); Blood Urine Negative (Negative); Color Urine Yellow (Yellow); Glucose Urine UA Negative (Negative); Ketones Urine Negative (Negative); Leukocyte Esterase Ur Negative LEU/UL (Negative); Nitrate Urine Negative (Negative); Protein Urine Negative (Negative); Specific Grav Ur 1.017 (1.001-1.035)
[2023-06-21 11:32] LABS: Add Urine Microscopic? NO
[2023-06-21 11:34] LABS: LDL Cholesterol Direct 62 mg/dL
== END 2023-06-21 10:39 | disposition home or self-care (01) ==
LOC: ANHLAB 10:39
PROVIDERS: PCP Internal Medicine; Visit Provider Internal Medicine
DX: E78.2 Mixed hyperlipidemia (principal); R73.03 Prediabetes; Z79.899 Other long term (current) 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; E03.9 Hypothyroidism, unspecified; I10 Essential (primary) hypertension
CPT/HCPCS: 36415; 80053; 80061; 81003; 83036; 84439; 84443; 85025

== ENCOUNTER 2023-09-01 13:49 | Outpatient (CLI) | payer MEDICARE, SELFPAY ==
[2023-09-01 15:01] LABS: Albumin Level 4.3 g/dL (3.5-5.1); Anion Gap 8 mmol/L (8-16); Blood Urea Nitrogen 24 mg/dL (7-17); Calcium 9.4 mg/dL (8.4-10.2); Carbon Dioxide 30 mmol/L (22-30); Chloride 98 mmol/L (98-107); Estimated Glomerular Filt Rate 55; Glucose 111 mg/dL (65-110); Phosphorus 3.6 mg/dL (2.5-4.5); Potassium 3.1 mmol/L (3.4-5.0); Sodium 136 mmol/L (137-145)
[2023-09-01 18:39] LABS: Creatinine Urine 112.6 mg/dL; Total Protein Urine Random 7 mg/dL; Ur Ttl Prot Creatinine Ratio 0.06 mg/mg (0-0.20)
== END 2023-09-01 13:50 | disposition home or self-care (01) ==
PROVIDERS: PCP Internal Medicine; Visit Provider Internal Medicine Nephrology
DX: I10 Essential (primary) hypertension (principal)
CPT/HCPCS: 36415; 80069; 82570; 84156

== ENCOUNTER 2023-09-29 09:10 | Outpatient (CLI) | payer MEDICARE, SELFPAY ==
--- NOTE | ~2023-09-29 | XR_ITS ---
XR_[id number]_[id number] 09/29/2023 09:54 Indication: Status post fall. Neck pain. Procedure: 4 view cervical spine Comparison: No prior studies for comparison. Findings: Mild levocurvature of the cervical spine. There is disc narrowing at C5-6 and C6-7. No prev ertebral soft tissue swelling. Odontoid process is normal. There is uncinate hypertrophy at C4-5, C5- 6 and C6-7. There is mild multilevel facet hypertrophy. Lateral masses normally aligned. No acute fracture or traumatic malalignment. Impression: 1: No acute abnormality of the cervical spine. 2: Moderate cervical spondylosis. Reviewed, dictated and finalized at location L. 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 2: Moderate cervical spondylosis.
--- NOTE | ~2023-09-29 | XR_ITS ---
EXAMINATION: XR TMJ BI DATE: 09/29/2023 09:54 INDICATION: Right face injury. TECHNIQUE: Open and closed mouth views of each temporomandibular joint for a total of 4 views were ob tained. COMPARISON: None. FINDINGS: Bone alignment is normal. No fracture. The temporomandibular joints are normal with normal anterior translation of the mandibular condyles in the open mouth position. IMPRESSION: 1. Normal temporomandibular joints. Reviewed, dictated and finalized at location A. IRATORY COORDINATOR
--- NOTE | ~2023-09-29 | XR_ITS ---
EXAMINATION: XR facial bones min 3V DATE: 09/29/2023 09:53 INDICATION: Right face injury. Fall. TECHNIQUE: 4 views of the facial bones were obtained. COMPARISON: None. FINDINGS: Bone alignment is normal. No fracture. IMPRESSION: 1. No fracture. Reviewed, dictated and finalized at location A. APEUTIC DIETITIAN IMPRESSION: 1. No fracture.
== END 2023-09-29 09:11 | disposition home or self-care (01) ==
PROVIDERS: PCP Internal Medicine; Visit Provider Internal Medicine
DX: S09.93XA Unspecified injury of face, initial encounter (principal); X58.XXXA Exposure to other specified factors, initial encounter; W18.00XA Striking against unspecified object with subsequent fall, initial encounter; M47.892 Other spondylosis, cervical region
CPT/HCPCS: 70150; 70330; 72040

== ENCOUNTER 2023-10-27 10:07 | Outpatient (CLI) | payer MEDICARE, SELFPAY ==
[2023-10-27 10:54] LABS: Basophils Absolute Auto 0.1 K/mm3 (0.0-0.1); Basophils Percent Auto 0.8 % (0.2-1.2); Eosinophils Absolute Auto 0.4 K/mm3 (0-0.3); Eosinophils Percent Auto 4.7 % (0-4.4); Hematocrit 38.2 % (37.0-47.0); Hemoglobin 12.6 g/dL (12.0-15.0); Immature Granulocyte Absolute 0.02 K/mm3 (0.00-0.031); Immature Granulocyte Percent A 0.3 % (0-0.5); Lymphocytes Absolute Auto 1.69 K/mm3 (0.9-3.2); Mean Corpuscular Hemoglobin 29.4 pg (26-34); Mean Corpuscular Volume 89.3 fl (80-100); Mean Platelet Volume 9.5 fl (7.4-10.4); Monocytes Absolute Auto 0.6 K/mm3 (0.1-0.6); Neutrophils Absolute Auto 4.9 K/mm3 (1.3-6.7); Neutrophils Percent Auto 64.2 % (45.5-73.1); Platelet Count Result 227 k/mm3 (150-375); Red Blood Count 4.28 M/mm3 (4.2-5.4); Red Cell Distribution Width 13.3 % (11.5-14.5); White Blood Count 7.7 K/mm3 (4.5-10.0)
[2023-10-27 11:45] LABS: Iron 55 ug/dL (37-170)
[2023-10-27 11:55] LABS: Percent Iron Saturation 18 % (20-50)
== END 2023-10-27 10:08 | disposition home or self-care (01) ==
LOC: ANHLAB 10:10
PROVIDERS: PCP Internal Medicine; Visit Provider Internal Medicine
DX: D64.9 Anemia, unspecified (principal)
CPT/HCPCS: 36415; 82728; 83540; 83550; 85025

== ENCOUNTER 2024-01-12 12:19 | Outpatient (CLI) | payer MEDICARE, SELFPAY ==
--- NOTE | ~2024-01-12 | MM_ITS ---
EXAMINATION: MM screening [facility] BI w mojgan HISTORY: Screening mammogram TECHNIQUE: Craniocaudal and mediolateral oblique 3-D tomosynthesis images were obtained and synthetic 2-D images were generated. CAD analysis was submitted and interpreted. COMPARISON: 01/03/2023, 11/21/2021 bilateral screening mammogram examinations BREAST PARENCHYMAL COMPOSITION: There are scattered areas of fibroglandular density. FINDINGS: There is a biopsy marker on the left with some adjacent benign-appearing microcalcification s. The biopsy in 2012 was reportedly benign. There is no evidence of suspicious mass, calcification, or architectural distortion to suggest malignancy in either breast. There has been no suspicious inte rval change. IMPRESSION: 1. No mammographic evidence of malignancy. 2. Recommend routine screening mammography in one year. BI-RADS Category 2: Benign finding(s). Reviewed, dictated and finalized at location A.
== END 2024-01-12 12:20 ==
PROVIDERS: PCP Nurse Practitioner; Visit Provider Nurse Practitioner
DX: Z12.31 Encounter for screening mammogram for malignant neoplasm of breast (principal)
CPT/HCPCS: 77063; 77067

== ENCOUNTER 2024-02-20 12:13 | Outpatient (CLI) | payer MEDICARE, SELFPAY ==
--- NOTE | ~2024-02-20 | XR_ITS ---
XR hip RT min 2V 02/20/2024 12:29 Indication: Right hip pain Procedure: 2 views right hip Comparison: No prior studies for comparison. Findings: There is mild-moderate osteoarthritis of the right hip. No fracture, subluxation or disloca tion. No soft tissue abnormality. Surrounding osseous structures are unremarkable. Impression: 1: Mild-moderate osteoarthritis of the right hip. Reviewed, dictated and finalized at location B. Impression: 1: Mild-moderate osteoarthritis of the right hip.
== END 2024-02-20 12:14 | disposition home or self-care (01) ==
LOC: ANHIMG 12:16
PROVIDERS: PCP Internal Medicine; Visit Provider Internal Medicine
DX: M16.11 Unilateral primary osteoarthritis, right hip (principal)
CPT/HCPCS: 73502

== ENCOUNTER 2024-04-16 11:13 | Outpatient (CLI) | payer MEDICARE, SELFPAY ==
[2024-04-16 11:41] LABS: Appearance Urine Clear (Clear); Bilirubin Urine Negative (Negative); Blood Urine Negative (Negative); Color Urine Yellow (Yellow); Glucose Urine UA Negative (Negative); Ketones Urine Negative (Negative); Leukocyte Esterase Ur Negative LEU/UL (Negative); Nitrate Urine Negative (Negative); Protein Urine Negative (Negative); Specific Grav Ur 1.023 (1.001-1.035); pH Urine 6.5 (5.0-9.0)
[2024-04-16 11:47] LABS: Add Urine Microscopic? NO
[2024-04-16 12:01] LABS: Anion Gap 6 mmol/L (4-12); Blood Urea Nitrogen 21 mg/dL (7-17); Calcium 9.3 mg/dL (8.4-10.2); Carbon Dioxide 29 mmol/L (22-30); Chloride 104 mmol/L (98-107); Cholesterol 134 mg/dL (0-200); Estimated Glomerular Filt Rate > 60; Glucose 100 mg/dL (65-110); HDL Direct 66 mg/dL; Potassium 3.8 mmol/L (3.4-5.0); Sodium 139 mmol/L (137-145); Triglycerides 93 mg/dL (<150)
[2024-04-16 12:12] LABS: LDL Cholesterol Direct 57 mg/dL
[2024-04-16 12:21] LABS: Free T4 Free Thyroxine 1.57 ng/mL (0.78-2.19)
[2024-04-16 14:55] LABS: Hemoglobin A1C 5.2 % (<5.7)
== END 2024-04-16 11:14 | disposition home or self-care (01) ==
LOC: ANHLAB 11:19
PROVIDERS: PCP Internal Medicine; Visit Provider Internal Medicine
DX: E03.9 Hypothyroidism, unspecified (principal); I10 Essential (primary) hypertension; R73.03 Prediabetes; E78.2 Mixed hyperlipidemia; Z79.899 Other long term (current) 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
CPT/HCPCS: 36415; 80048; 80061; 81003; 83036; 84439; 84443

== ENCOUNTER 2024-08-28 10:31 | Outpatient (CLI) | payer MEDICARE, SELFPAY ==
[2024-08-28 11:26] LABS: Anion Gap 5 mmol/L (4-12); Blood Urea Nitrogen 19 mg/dL (7-17); Calcium 9.6 mg/dL (8.4-10.2); Carbon Dioxide 32 mmol/L (22-30); Chloride 102 mmol/L (98-107); Cholesterol 163 mg/dL (0-200); Estimated Glomerular Filt Rate 55; Glucose 106 mg/dL (65-110); HDL Direct 74 mg/dL; Potassium 4.1 mmol/L (3.4-5.0); Sodium 139 mmol/L (137-145); Triglycerides 97 mg/dL (<150)
[2024-08-28 11:34] LABS: LDL Cholesterol Direct 62 mg/dL
[2024-08-28 12:46] LABS: Free T4 Free Thyroxine 1.44 ng/mL (0.78-2.19)
== END 2024-08-28 10:32 | disposition home or self-care (01) ==
LOC: ANHLAB 10:35
PROVIDERS: PCP Internal Medicine; Visit Provider Internal Medicine
DX: E78.2 Mixed hyperlipidemia (principal); E03.9 Hypothyroidism, unspecified; I10 Essential (primary) hypertension
CPT/HCPCS: 36415; 80048; 80061; 84439; 84443

== ENCOUNTER 2024-08-30 10:57 | Outpatient (CLI) | payer MEDICARE, SELFPAY ==
--- NOTE | ~2024-08-30 | XR_ITS ---
3 VIEWS LUMBAR SPINE Ordering provider: Rock Early MD History: . M54.10 - Radiculopathy, site unspecified PAIN LOWER BACK . Comparison: None. FINDINGS: VERTEBRAL BODIES: No visible fracture or subluxation. Degenerative changes of the spine. DISK SPACES: Narrowing of the disc L4-L5 and L5-S1. Multilevel facet joint disease. SOFT TISSUES: Normal. Opacity seen in the right costovertebral junction is noted which may be medicat ion in the stomach. IMPRESSION: No acute osseous abnormality lumbar spine. Degenerative disc disease at the level of L4-L5 and L5-S1 Reviewed, dictated and finalized at location A.
--- NOTE | ~2024-08-30 | XR_ITS ---
XR sacroiliac joints min 3V Ordering provider: Rock Early MD History: . M25.551 - Pain in right hip, LOWER BACK RADIATING INTO LEG . Comparison: None. FINDINGS: BONES: No acute fracture or dislocation. Degenerative changes of the spine. JOINTS: The bilateral sacroiliac joint spaces appear well maintained. No bony fusion of the sacroilia c joints or bony erosions. SOFT TISSUES: Unremarkable. IMPRESSION: NO ACUTE OSSEOUS ABNORMALITY. NORMAL SACROILIAC JOINTS. Reviewed, dictated and finalized at location A.
--- NOTE | ~2024-08-30 | XR_ITS ---
XR knee RT min 4V Ordering provider: Rock Early MD History: . M25.561 - Pain in right knee RADIATING DOWN LEG . Comparison: None. FINDINGS: BONES: No acute fracture or dislocation. JOINT SPACES: Normal. Marginal osteophytes seen in the knee and patella. SOFT TISSUES: Normal. IMPRESSION: No acute osseous abnormality right knee. Mild osteoarthritic changes. Reviewed, dictated and finalized at location A.
== END 2024-08-30 10:58 | disposition home or self-care (01) ==
PROVIDERS: PCP Internal Medicine; Visit Provider Internal Medicine
DX: M51.369 Other intervertebral disc degeneration, lumbar region without mention of lumbar back pain or lower extremity pain (principal); M51.379 Other intervertebral disc degeneration, lumbosacral region without mention of lumbar back pain or lower extremity pain; M17.11 Unilateral primary osteoarthritis, right knee; M25.551 Pain in right hip
CPT/HCPCS: 72100; 72202; 73564

== ENCOUNTER 2024-12-31 11:07 | Outpatient (CLI) | payer MEDICARE, SELFPAY ==
[2024-12-31 11:44] LABS: Cholesterol 152 mg/dL (0-200); HDL Direct 69 mg/dL; Triglycerides 89 mg/dL (<150)
[2024-12-31 11:54] LABS: LDL Cholesterol Direct 55 mg/dL
[2024-12-31 14:55] LABS: Hemoglobin A1C 5.6 % (<5.7)
== END 2024-12-31 11:08 | disposition home or self-care (01) ==
LOC: ANHLAB 11:11
PROVIDERS: PCP Internal Medicine; Visit Provider Internal Medicine
DX: E78.2 Mixed hyperlipidemia (principal); R73.03 Prediabetes
CPT/HCPCS: 36415; 80061; 83036

== ENCOUNTER 2025-02-01 10:58 | Outpatient (CLI) | payer MEDICARE, SELFPAY ==
--- NOTE | ~2025-02-01 | MM_ITS ---
EXAMINATION: MM screening [facility] BI w mojgan HISTORY: Screening TECHNIQUE: Craniocaudal and mediolateral oblique 3-D tomosynthesis images were obtained and synthetic 2-D images were generated. CAD analysis was submitted and interpreted. COMPARISON: Comparison to multiple prior studies sequentially, with oldest reviewed study dated 07/17. BREAST PARENCHYMAL COMPOSITION: Not Dense: The breasts are almost entirely fatty. FINDINGS: There are clustered calcifications in the upper outer quadrant of the left breast adjacent to the tissue marker from previous benign biopsy. No significant change to these calcifications. Ther e is no evidence of suspicious mass, calcification, or architectural distortion to suggest malignancy in either breast. There has been no suspicious interval change. IMPRESSION: 1. No mammographic evidence of malignancy. 2. Recommend routine screening mammography in one year. BI-RADS Category 2: Benign finding(s). Reviewed, dictated and finalized at location A.
== END 2025-02-01 10:59 | disposition home or self-care (01) ==
PROVIDERS: PCP Internal Medicine; Visit Provider Nurse Practitioner
DX: Z12.31 Encounter for screening mammogram for malignant neoplasm of breast (principal)
CPT/HCPCS: 77063; 77067

== ENCOUNTER 2025-02-26 15:11 | Outpatient (CLI) | payer MEDICARE, SELFPAY ==
[2025-02-26 16:14] LABS: Alanine Aminotransferase 16 U/L (6-35); Aspartate Amino Transferase 22 U/L (14-36)
--- OUTSIDE RECORDS SUMMARY | 2025-02-26 17:12 | XMS_ITS | Clinical Summary ---
Author Organization [facility] Address [address] [place] [address] Phone Care Team Providers Care Power Originator Name Role Phone Unavailable Primary Care Provider Unavailabl e Allergies Active Allergy Reactions Criticality Noted Date Comments Codeine Other (See Comments) 12/30/2017 . Medications acyclovir (ZOVIRAX) 400 mg tablet 12/27/2017 Active losartan-hydroC HLOROthiazide (HYZAAR) 100-12.5 mg tablet 12/29/2017 Active SYNTHROID 112 mcg tablet 88 mg. 12/22/2017 Active tiZANidine (ZANAFLEX) 4 mg Tablet Take 4 mg by mouth. Active ferrous sulfate, dried (IRON, DRIED, ORAL) Take by mouth daily. Active rosuvastatin (CRESTOR) 20 mg tablet Take 20 mg by mouth daily. Active rizatriptan benzoate (MAXALT ORAL) Take by mouth. Active cholecalciferol , vitamin D3, (VITAMIN D3 ORAL) Take by mouth. Active loratadine/pseu doephedrine (CLARITIN-D 12 HOUR ORAL) Take by mouth daily. Active POTASSIUM-99 ORAL Take by mouth. Active azelastine (ASTELIN) 137 mcg/actuation nasal spray SPRAY 2 SPRAYS IN EACH NOSTRIL EVERY 12 HOURS 02/05/2022 Active rimegepant sulfate (NURTEC ODT ORAL) Take by mouth. Active aspirin 81 mg tablet,delayed release Take 81 mg by mouth daily. Active CALCIUM CARBONATE-VITAM IN D3 ORAL Take by mouth. Active IBUPROFEN ORAL Take by mouth. Active BENZONATATE ORAL Take by mouth. Active ondansetron (ZOFRAN ODT) 4 mg Tablet, Rapid Dissolve Take 1 Tablet (4 mg) by mouth every 6 hours as needed for Nausea/Emesis . Dissolve tablet below the tongue, then swallow with saliva. 40 Tablet 1 02/01/2023 1:26 PM CDT 01/31/2023 Active docusate sodium (COLACE) 100 mg capsule Take 1 Capsule (100 mg) by mouth 2 times daily. 60 Capsule 02/01/2023 1:26 PM CDT 01/31/2023 Active omeprazole (PriLOSEC) 40 mg Capsule, Delayed Release(E.C.) Take 1 Capsule (40 mg) by mouth daily. 30 Capsule 3 Active omeprazole (PriLOSEC) 40 mg Capsule, Delayed Release(E.C.) Take 1 Capsule (40 mg) by mouth daily. 90 Capsule 2 03/31/2023 4:14 PM CDT 03/03/2023 Active Active Problems Problem Noted Date Diagnosed Date Family h/o pancreatic cancer (mother) 12/15/2022 Swallowing impairment 12/15/2022 Achalasia 12/15/2022 Hiatal hernia 12/15/2022 Family History Medical History Relation Name Comments Cancer Father Hypertension Father Macular Degen Father Thyroid Disease Father Cancer Mother Hypertension Mother Thyroid Disease Mother Relation Name Status Comments Father Mother Social History Tobacco Use Types Packs/Day Years Used Date Smoking Tobacco: Never Tobacco Cessation:Counseling Given: Not Answered Alcohol Use Standard Drinks/Week Comments Yes 0 (1 standard drink = 0.6 oz pur e alcohol) occasional Feeling Safe Answer Date Recorded Are you in a relationship wi th someone who hurts you emotionally and/or physically? 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 Gender Identity Not on file Sexual Orientation Not on file Last Filed Vital Signs Vital Sign Reading Time Taken Comments Blood Pressure 108/66 02/16/2023 11:11 AM CDT Pulse 65 02/01/2023 12:26 PM CDT Temperature 36.4 C (97.6 F) 02/01/2023 12:26 PM CDT Respiratory Rate 18 02/01/2023 12:2 6 PM CDT Oxygen Saturation 97% 02/01/2023 12: 26 PM CDT Inhaled Oxygen Concentration - - Weight 101.4 kg (223 lb 9.6 oz) 023 11:11 AM CDT Height 165.1 cm (5' 5 ) 02/16/2023 11:1 1 AM CDT Body Mass Index 37.21 02/16/2023 11:11 AM CDT Plan of Treatment Health Maintenance Due Date Last Done Comments DTAP/TDAP/TD VACCINES (1 - Tdap) 1976 FIT-DNA Q 3 years 2002 FIT/FOBT Q 1 year 2002 Flex Sig/CT Colonography Q 5 years 2002 PNEUMOCOCCAL VACCINE 50+ YEA RS (1 of 1 - PCV) 2007 ZOSTER VACCINE (1 of 2) 2007 RSV VACCINE (60+ or ) (1 - Risk 60-74 years 1-dose series) 2017 BREAST CANCER SCREENING 11/11/2021 11/11/19, 11/11/2020, 08/10/2019, Additional history exists OSTEOPOROSIS SCREENING 2022 06/23/2017 INFLUENZA VACCINE (#1) 2024 COLORECTAL SCREENING 09/12/2029 09/12/2019 Colorectal Cancer Screening 09/12/2029 Medical Devices Implanted Type Area Otr Truck Driver Device Identifier Shelf Expiration Date Model / Serial / Lot Breast Marker Left: Breast Insurance RX [employer] Commercial RX [employer] (INTERNAL) [facility] Advance Directives For more information, please contact: [phone] * Full Code (Latest Code Status on File) Date Activated Date Inactivated Comments 01/31/2023 4:07 PM 02/01/2023 3:54 PM * Full Code Date Activated Date Inactivated Comments 01/31/2023 11:29 AM 01/31/2023 4:07 PM * Full Code Date Activated Date Inactivated Comments 01/31/2023 9:49 AM 01/31/2023 11:29 AM * Full Code Date Activated Date Inactivated Comments 09/01/2022 7:54 AM 09/01/2022 11:30 AM
--- OUTSIDE RECORDS SUMMARY | 2025-02-26 17:12 | XMS_ITS | Clinical Summary ---
Author Organization [facility] Address [address] [place] [id number] Phone Care Team Providers Care Line Lead Name Role Phone Rock Early MD Primary Care Provider [phone] Allergies Active Allergy Reactions Criticality Noted Date Comments Codeine 12/30/2017 Other reaction(s): Other (See Comments) . Medications acyclovir (ZOVIRAX) 400 MG tablet 12/27/2017 Active famotidine (PEPCID) 40 MG tablet 40 mg 12/15/2017 Active levothyroxine (Synthroid) 112 MCG tablet 40 mg 12/22/2017 Active azelastine (ASTELIN) 0.1 % nasal spray SPRAY 2 SPRAYS IN EACH NOSTRIL EVERY 12 HOURS 02/05/2022 Active ferrous sulfate 325 (65 Fe) MG tablet Take 1 tablet by mouth 1 (one) time each day 03/22/2022 Active rosuvastatin (CRESTOR) 20 MG tablet Take 20 mg by mouth 1 (one) time each day 02/09/2022 Active losartan (COZAAR) 100 MG tablet Take 1 tablet (100 mg total) by mouth 1 (one) time each day 30 tablet 11 04/19/2022 Active potassium chloride (K-TAB) 20 MEQ CR tablet Take 1 tablet (20 mEq total) by mouth 1 (one) time each day 04/19/2022 Active rizatriptan (MAXALT) 10 MG tablet TAKE 1 TAB AT ONSET OF HEADACHE IF NO RELIEF MAY REPEAT 1 TAB AFTER AT LEAST 2 HRS MAX= 3 TABS/24HR 08/24/2022 Active tiZANidine (ZANAFLEX) 4 MG tablet Take 4 mg by mouth prn Active Active Problems Problem Noted Date Diagnosed Date Chronic kidney disease stage 3A 04/19/2022 Hypokalemia 04/19/2022 Essential hypertension 04/19/2022 Social History Tobacco Use Types Packs/Day Years Used Date Smoking Tobacco: Never Smokeless Tobacco: Never Alcohol Use Standard Drinks/Week Comments Yes 0 (1 standard drink = 0.6 oz pur e alcohol) rare Comments Unknown Sex and Gender Information Value Date Recorded Sex Assigned at Not on file Legal Sex Female 8:43 AM MDT Gender Identity Not on file Sexual Orientation Not on file Last Filed Vital Signs Vital Sign Reading Time Taken Comments Blood Pressure 118/70 08/30/2022 11:44 AM CDT Pulse 72 08/30/2022 11:44 AM CDT Temperature 34.6 C (94.2 F) 08/30/2022 11:44 AM CDT Respiratory Rate - - Oxygen Saturation - - Inhaled Oxygen Concentration - - Weight 102 kg (224 lb) 08/30/2022 11:44 AM CDT Height 165.1 cm (5' 5 ) 08/30/2022 11:44 AM CDT Body Mass Index 37.28 08/30/2022 11:44 AM CDT Plan of Treatment Health Maintenance Due Date Last Done Comments Pneumococcal PPSV23/PCV13 65 + Years / High and Highest Risk (1 of 5 - PCV) 1976 Influenza Vaccine (Season Ended) [address] Care Teams Line Lead Relationship Specialty Start Date End Date Rock Early MD [address] [facility] [address] [place] [id number] PCP - General Internal Medicine 04/19/22
--- OUTSIDE RECORDS SUMMARY | 2025-02-26 17:12 | XMS_ITS | Continuity of Care Document ---
Author Organization [facility] Address [address] [facility] [address] [place] [address] Phone Care Team Providers Care Legal Counsel Name Role Phone Markos Mendoza MD Unavailable [...] Providers Copied on Encounter [facility], [address] [place] [address], [id number], tel:[phone] OPH CONSULT ANABELLA GARIBAY No Information 8 Reji Burrows. [address], [address], [place], [place], [id number] , . tel:[phone] Referring Provider: Markos James, [address] [place] [address], [address] . tel:[phone] [facility], [address] [place] [address], [id number], tel:[phone] [facility] [place] No Information 6 Reji Burrows. [address], [address], [place], [place], [id number] , [place]. tel:[phone] Referring Provider: Markos James, [address], [place], [address] . tel:[phone] [facility], [address] [place] [address], [id number], tel:[phone] OPH CONSULT ANABELLA GARIBAY No Information 6 Reji Burrows. [address], [address], [id number] , [place]. [phone] Referring Provider: Markos James, [address], [place], [address] . tel:[phone] [facility], [address] [place] [address], [id number], tel:[phone] [facility] No Information 6 Reji Burrows. [address], [place], [place], [id number] , . tel:[phone] Referring Provider: Markos James, [address], [place], [address] . tel:[phone] [facility], [address] [place] [address], [id number], tel:[phone] OPH CONSULT ANABELLA GARIBAY No Information Reji Burrows. [address], [address], [place], [id number] , . tel:[phone] Referring Provider: Markos James, [address], [place], [address] . tel:[phone] OFFICE/OUTPA TIENT VISIT, [facility], [address] [place] [address], [id number], tel:[phone] OPH CONSULT ANABELLA GARIBAY blurry vision (chief complaint) Atrophy of thyroid (acquired)Acute bilateral papillary conjunctivitisEs sential (primary) hypertensionAge- related nuclear cataract, bilateralSquamou s blepharitis left lower eyelidSquamous blepharitis left upper eyelidSquamous blepharitis right lower eyelidSquamous blepharitis right upper eyelidPresbyopia 6 Reji Burrows. [address], [address], [id number] , . tel:[phone] Referring Provider: Markos James, [address], [place], [address] . tel:[phone] Family History Family Member Type Diagnosis Age At Onset Father Problem (finding) degenerative disorder o f macula Mother Problem (finding) malignant neoplasm of p ancreas Father Problem (finding) cancer of colon Father Problem (finding) Leukemia Payers Payer name Insurance type Covered alliance party ID Authoriza tion(s) No Information Social History [...]
== END 2025-02-26 15:12 | disposition home or self-care (01) ==
PROVIDERS: PCP Internal Medicine; Visit Provider Podiatrist Foot & Ankle Surgery
DX: B35.1 Tinea unguium (principal)
CPT/HCPCS: 36415; 84450; 84460

== ENCOUNTER 2025-05-16 10:30 | Outpatient (CLI) | payer MEDICARE, SELFPAY ==
--- OUTSIDE RECORDS SUMMARY | 2025-05-16 10:51 | XMS_ITS | Clinical Summary ---
Author Organization [facility] Address [address] [place] [address] Phone Care Team Providers Care Property Management Coordinator Name Role Phone Rock Early MD Primary Care Provider [phone] Allergies Active Allergy Reactions Criticality Noted Date [...] 11:44 AM CDT Height 165.1 cm (5' 5) 08/30/2022 11:44 AM CDT Body Mass Index 37.28 08/30/2022 11:44 AM CDT Plan of Treatment Health Maintenance Due Date Last Done Comments Pneumococcal PPSV23/PCV13 65 + Years / Low and Medium Risk (1 of 2 - PCV) 2007 Influenza Vaccine (#1) [address] Care Teams Property Management Coordinator Relationship Specialty Start Date End Date Rock Early MD [address] [facility] [address] [place] [address] PCP - General Internal Medicine 04/19/22
--- OUTSIDE RECORDS SUMMARY | 2025-05-16 10:51 | XMS_ITS | Clinical Summary ---
Author Organization [facility] Address [address] [place] [address] Phone Care Team Providers Care Car Rental Service Attendant Name Role Phone Unavailable Primary Care Provider [...] = 0.6 oz pur e alcohol) occasional Comments No Sex and Gender Information Value Date Recorded Sex Assigned at Not on file Legal Sex Female 3:59 AM TAR LEVELER Gender Identity Not on file Sexual Orientation [...] 11:11 AM CDT Height 165.1 cm (5' 5) 02/16/2023 11:1 1 AM CDT Body Mass [...] 1-dose series) 2017 BREAST CANCER SCREENING 11/11/2021 11/11/19 21, 11/11/2020, 08/10/2019, Additional history exists OSTEOPOROSIS SCREENING 2022 06/23/2017 INFLUENZA VACCINE (#1) 2025 COLORECTAL SCREENING 09/12/2029 09/12/2019 Colorectal Cancer Screening 09/12/2029 Medical Devices Implanted Type Area Psychosocial Rehabilitation Counselor Device Identifier Shelf Expiration Date Model / Serial / Lot Breast Marker Left: Breast Insurance RX [employer] Commercial RX [employer] (INTERNAL) [facility] Internal Plans Advance Directives For more information, please contact: [phone] * Full Code (Latest Code Status on [...]
--- OUTSIDE RECORDS SUMMARY | 2025-05-16 10:51 | XMS_ITS | Clinical Summary ---
Author Organization [facility] Address [address] [facility] [place] [address] Care Team Providers Care Practice Nurse Name Role Phone Rock Early MD Primary Care Provider [phone] [facility],non-owned Affiliates and Associated Physician Practices is amultiple site organization consisting of ambulatory clinics and hospital sitesin [place], [place], [place] and [place]. This disclosure is being madepursuant to the Care Everywhere program and may not contain all information available regarding this patient. 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 Gender Identity Not on file Sexual Orientation Not on file Plan of Treatment Upcoming Encounters Date Type Department Care Team (Late st Contact Info) Description 06/17/2025 1:00 PM CDT Office Visit [facility] [address] [place] [facility] [address] [place] [address] Kash Mcclelland MD [address] [facility] [address] [place] [address] Health Maintenance Due Date Last Done Comments BONE DENSITY TESTING 1957 COLOGUARD (AGES 45-75) - COLON CA SCREENING 1957 COLON MONITORING 1957 COLONOSCOPY - COLON CA SCREENING 1957 CT COLONOGRAPHY - COLON CA SCREENING 1957 Colorectal Cancer Screening 1957 FIT - COLON CA SCREENING 1957 FLEX SIG - COLON CA SCREENING 1957 LIPID TESTING 1957 MAMMOGRAM 1957 MEDICARE AWV 12 MONTHS 1957 HEPATITIS C SCREENING 07/28/1975 DTAP/TDAP/TD VACCINES (1 - Tdap) 1976 PNEUMOCOCCAL VACCINE 50+ (1 of 1 - PCV) 2007 ZOSTER VACCINE (1 of 2) 2007 COVID-19 VACCINE (3 - season) 2024 12/06/2021, 01/06/2021 DEPRESSION SCREENING 10/31/2024 INFLUENZA VACCINE (#1) 2025 , 08/20/2020, 07/31/2014, Additional history exists Respiratory Syncytial Virus (RSV) Vaccine Pt: or over 60 yrs (1 - 1-dose 75+ series) 2032 HEPATITIS B VACCINE Aged Out No longe r eligible based on patient's age to complete this topic HIB VACCINE Aged Out No longer eligi ble based on patient's age to complete this topic HPV VACCINE Aged Out No longer eligi ble based on patient's age to complete this topic MENINGOCOCCAL (Group B) VACCINE SHARED DECISION-MAKING Aged Out No longer eligible based on patient's age to complete this topic MENINGOCOCCAL GROUPS A/C/Y/W VACCINE Aged Out No longer eligible based on patient's age to complete this topic Insurance [place] [address] Care Teams Practice Nurse Relationship Specialty Start Date End Date Rock Early MD [address] [place] [address] PCP - General 04/20/22
--- OUTSIDE RECORDS SUMMARY | 2025-05-16 10:52 | XMS_ITS | Clinical Summary ---
Author Organization [facility] Address [facility] [place] [address] Care Team Providers Care Ecd Name Role Phone Rock Early MD Primary Care Provider [phone] Active Problems Problem Noted Date Diagnosed Date Right hip pain 02/28/2024 Social History Tobacco Use Types Packs/Day Years Used Date Smoking Tobacco: Never Assessed Comments Unknown Sex and Gender Information Value Date Recorded Sex Assigned at Not on file Legal Sex Female 3:10 PM CDT Gender Identity Not on file Sexual Orientation Not on file Plan of Treatment Health Maintenance Due Date Last Done Comments Colorectal Cancer Screening Colonoscopy (10 Years) 1957 Hepatitis C 1975 Mammogram Screening 1997 Zoster Vaccines (2 of 2) 11/10/2019 09/15/2019 DTaP, Tdap and Td Vaccines ( 2 - Tdap) 02/07/2022 02/08/2012 Annual Medicare Wellness Visit 2022 Dexa Scan (General) 2022 COVID-19 Vaccine (3 - 2023-2 5 season) 2024 12/06/2021, 01/06/2021 RSV Immunization or 60+ Years (1 - 1-dose 75+ series) 2032 Pneumococcal Vaccine: 50+ Years Completed 09/25/2022 Meningococcal B Vaccine Aged Out No l onger eligible based on patient's age to complete this topic Meningococcal Vaccine Aged Out No savannah marnio eligible based on patient's age to complete this topic RSV Immunizations Under 20 Months Aged Out No longer eligible b ased on patient's age to complete this topic Insurance MEDICARE [facility] Care Teams Ecd Relationship Specialty Start Date End Date Rock Early MD [address] - [facility] [address] [place] [address] PCP - General INTERNAL MEDICINE 02/21/24
--- OUTSIDE RECORDS SUMMARY | 2025-05-16 10:52 | XMS_ITS | Continuity of Care Document ---
Author Organization [facility] Address [address] [facility] [address] [place] [address] Phone Care Team Providers Care Engineer Byproduct Name Role Phone Markos Mendoza MD Unavailable [...] Providers Copied on Encounter [facility], [address] [place] [address], [id number], tel:[phone] OPH CONSULT ANABELLA GARIBAY No Information 8 Reji Burrows. [address], [place], [place], [id number] , . tel:[phone] Referring Provider: Markos James, [address] [place] [address], [address] . tel:[phone] [facility], [address] [place] [address], [id number], tel:[phone] [facility] No Information 6 Reji Burrows. [address], [place], [place], [id number] , [place]. tel:[phone] Referring Provider: Markos James, [address], [place], [address] . tel:[phone] [facility], [address] [place] [address], [id number], tel:[phone] OPH CONSULT ANABELLA GARIBAY No Information 6 Reji Burrows. [address], [address], [id number] , [place]. [phone] Referring Provider: Markos James, [address], [place], [address] . tel:[phone] [facility], [address] [place] [address], [id number], tel:[phone] [facility] No Information 6 Reji Burrows. [address], [place], [place], [id number] , . tel:[phone] Referring Provider: Markos James, [address], [place], [address] . tel:[phone] [facility], [address] [place] [address], [id number], tel:[phone] OPH CONSULT ANABELLA GARIBAY No Information Reji Burrows. [address], [address], [address] , . tel:[phone] Referring Provider: Markos James, [address], [place], [address] . tel:[phone] OFFICE/OUTPA TIENT VISIT, [facility], [address] [place] [address], [id number], tel:[phone] OPH CONSULT ANABELLA GARIBAY blurry vision (chief complaint) Atrophy of thyroid (acquired)Acute bilateral papillary conjunctivitisEs sential (primary) hypertensionAge- related nuclear cataract, bilateralSquamou s blepharitis left lower eyelidSquamous blepharitis left upper eyelidSquamous blepharitis right lower eyelidSquamous blepharitis right upper eyelidPresbyopia 6 Reji Burrows. [address], [address], [address] , . tel:[phone] Referring Provider: Markos James, [address], [place], [address] . tel:[phone] Family History Family Member Type Diagnosis Age [...]
[2025-05-16 10:53] LABS: Hematocrit 35.3 % (37.0-47.0); Hemoglobin 11.8 g/dL (12.0-15.0); Immature Granulocyte Percent A 0.3 % (0-0.5); Lymphocytes Absolute Auto 0.72 K/mm3 (0.9-3.2); Mean Corpuscular HGB Conc 33.4 g/dl (32-36); Mean Corpuscular Hemoglobin 28.8 pg (26-34); Mean Corpuscular Volume 86.1 fl (80-100); Nucleated Red Blood Cells Absolute Auto 0.000 K/mm3 (0.0-0.012); Nucleated Red Blood Cells Perc 0.0 % (0.0-0.2); Platelet Count Result 190 k/mm3 (150-375); Red Blood Count 4.10 M/mm3 (4.2-5.4); White Blood Count 6.2 K/mm3 (4.5-10.0)
[2025-05-16 11:13] LABS: Alanine Aminotransferase 20 U/L (6-35); Albumin Level 4.2 g/dL (3.5-5.1); Alkaline Phosphatase 63 U/L (38-126); Anion Gap 8 mmol/L (4-12); Aspartate Amino Transferase 28 U/L (14-36); Bilirubin,Total 1.7 mg/dL (0.2-1.3); Blood Urea Nitrogen 17 mg/dL (7-17); Calcium 9.4 mg/dL (8.4-10.2); Carbon Dioxide 28 mmol/L (22-30); Chloride 101 mmol/L (98-107); Cholesterol 131 mg/dL (0-200); Estimated Glomerular Filt Rate 53; Glucose 95 mg/dL (65-110); HDL Direct 59 mg/dL; Potassium 3.5 mmol/L (3.4-5.0); Sodium 137 mmol/L (137-145); Total Protein 7.2 g/dL (6.3-8.2); Triglycerides 113 mg/dL (<150)
[2025-05-16 11:33] LABS: Free T4 Free Thyroxine 1.81 ng/dL (0.78-2.19)
[2025-05-16 11:49] LABS: Thyroid Stimulating Hormone 1.260 uIU/mL (0.465-4.680)
[2025-05-16 12:17] LABS: Hemoglobin A1C 5.5 % (<5.7)
== END 2025-05-16 10:31 | disposition home or self-care (01) ==
LOC: ANHLAB 10:34
PROVIDERS: PCP Internal Medicine; Visit Provider Internal Medicine
DX: E55.9 Vitamin D deficiency, unspecified (principal); I10 Essential (primary) hypertension; E03.9 Hypothyroidism, unspecified; R73.03 Prediabetes; E78.2 Mixed hyperlipidemia
CPT/HCPCS: 36415; 80053; 80061; 82306; 83036; 84439; 84443; 85025

== ENCOUNTER 2025-07-19 05:41 | Day surgery (SDC) | payer MEDICARE, SELFPAY ==
[2025-07-03 09:08] VITALS: BMI 30.8
[2025-07-19 08:22] VITALS: BP 129/69; PULSE 62; RESP 16; TEMP 36.1; O2SAT 100
[2025-07-19] MEDS: LACTATED RINGERS 1,000 ML 150 ML IV CONT (08:31)
--- NOTE | 2025-07-19 08:47 | P.PNAN_ITS ---
Anes - Initial Pre Proc Eval Procedure: Operation Date: 07/19/25 09:30 Proposed Procedures p Screening Colonoscopy - Dandre Salazar MD Date/Time: 07/19/25 08:47 Surgeon: Dandre Salazar MD Pre Op Diagnosis: Screening Patient Data Age: 69 Gender: F Height: 1.65 m Weight: 81.6 kg Last Vital Signs Temp 36.1 C L 07/19/25 08:22 Pulse 62 07/19/25 08:22 Resp 16 07/19/25 08:22 BP 129/69 07/19/25 08:22 Pulse Ox 100 07/19/25 08:22 O2 Del Method Room Air 07/19/25 08:22 Allergies Allergy/AdvReac Type Severity Reaction Status Date / Time codeine Allergy Rash Verified 07/19/25 08:16 Home Medications ?Medication ?Instructions ?Recorded ?Confirmed ?Type loratadine-pseudoephedrine ER 10 1 tablet PO PRN PRN A llergy 10/16/19 07/19/25 History mg-240 mg tablet,extended Symptoms [id number] (Loratadine-D) cholecalciferol (vitamin D3) 1,250 1,250 mcg PO MONTHL Y 08/17/21 07/03/25 History mcg (50,000 unit) capsule rizatriptan 10 mg tablet See Rx Instructions PO .COMP INES #8 07/26/22 07/03/25 Rx tabs calcium carbonate 600 mg PO DAILY 11/24/22 History ibuprofen 200 mg tablet 200 mg PO Q6H PRN pain 11/2407/03/25 History azelastine 137 mcg (0.1 %) nasal 1 - 2 spray intranasa l BID PRN 06/24/23 07/19/25 Rx spray allergies #90 mL multivitamin 1 tablet PO DAILY 12/08/23 0 07/19/25 History tizanidine 4 mg tablet 4 mg PO TID PRN muscle spast icity 02/20/24 07/03/25 Rx #45 tabs levomefolate calcium 15 mg tablet 15 mg PO DAILY 04/1907/03/25 History (L-Methylfolate) Magnesium Complex BYMOUTH 08/30/24 05/22/25 Hi story Glucosamine and Chondroiton BYMOUTH 01/09/25 05/22/25 History coenzyme Q10 75 mg capsule (Ultra 75 mg PO DAILY 01/0907/19/25 History CoQ10) dextromethorphan-guaifenesin ER 60 1 tablet PO Q12H ND N congestion 01/09/25 07/03/25 History mg-1,200 mg tab,extend release,12hr (Mucinex DM) rosuvastatin 20 mg tablet See Rx Instructions .Route 0 03/17/25 07/19/25 Rx .COMPLEX #90 tabs acyclovir 400 mg tablet See Rx Instructions .Route 0 04/05/25 07/19/25 Rx .COMPLEX #180 tabs levothyroxine 75 mcg tablet 75 mcg PO DAILY #90 tabs 0 04/08/25 07/19/25 Rx (Synthroid) terbinafine HCl 250 mg tablet 250 mg PO DAILY 05/22/25 07/19/25 History losartan 50 mg-hydrochlorothiazide 1 tablet PO DAILY 0 06/25/25 07/19/25 History 12.5 mg tablet potassium chloride 20 mEq See Rx Instructions .Route 0 07/04/25 07/19/25 Rx tablet,extended release .COMPLEX #180 tabs tirzepatide (weight loss) 7.5 7.5 mg (0.5 mL) subcut W EEKLY #2 mL 07/11/25 07/19/25 Rx mg/0.5 mL subcutaneous solution Patient hx anesthesia problems: none Family hx anesthesia problems: none Results Review: All pre-operative results and documents have been reviewed as part of the pre- operative evaluation. [facility] Past Medical History Medical History Change in bowel habits BMI 32.0-32.9,adult Skin lesion of lower extremity Change in nail appearance Right knee pain BMI 34.0-34.9,adult Grief Right hip pain Encounter for Medicare annual wellness exam Fall Facial injury BMI 35.0-35.9,adult Hx of cataract DJD (degenerative joint disease), multiple sites Allergic rhinitis Paresthesia of left arm BMI 38.0-38.9,adult Abdominal pain BMI 37.0-37.9, adult BMI 36.0-36.9,adult Acute hypokalemia BONIFACIO (acute kidney injury) Hypokalemia Dysphagia Chest pain Agatston coronary artery calcium score between 100 and 199 Elevated LFTs Body mass index (BMI) 45.0-49.9, adult Pre-diabetes MIO (obstructive sleep apnea) Atypical chest pain Dyshidrotic eczema Chronic headaches Mild reactive airways disease Hypothyroidism (acquired) Body mass index (BMI) 40.0-44.9, adult GERD (gastroesophageal reflux disease) Bilateral low back pain with sciatica Chronic cough Essential (primary) hypertension Left hip pain Mild persistent reactive airway disease without complication Mixed hyperlipidemia MIO (obstructive sleep apnea) uses oral appliance occasionally Hypertension Hyperlipidemia Surgical History Surgical History History of cholecystectomy H/O: hysterectomy Family History Family History Father Family history of malignant neoplasm of gastrointestinal tract Rectal Family history of malignant neoplasm Lymphoma Heart disease Mother Family history of pancreatic cancer, Onset Age: 75 Social History Social History Social History: Ms. Weller lives at home with her . She is independent in her daily activities. She works full-time. Her primary care provider is Dr. Rock Early. She designates her , Denis (goes by Johnny) as her surrogate decision maker. She would like to be a full code. Caffeine-tea/soda Smoking status: Never smoker Second hand tobacco smoke exposure: Yes Alcohol intake: current Alcohol use details: Drinks alcohol 3 times per year Substance use: never Substance use type: does not use Lack of Transportation: No Lack of Food: Never True Current Housing: I Have Housing Concerned About Future Housing: No Difficulty Paying Gas/Electric Bills: No Difficulty Paying for Meds: No Currently Unemployed: No Education: Master's Degree or Higher Difficulty w/ Childcare or Family Care: No Living arrangements: with family Gender identity (if verbalized by the patient): Female Spiritual care concerns: No Anes - Eval Final PreProcedure Day of Procedure 07/19/25 08:47 Patient weight: obese Heart: regular rate and rhythm Lungs: clear to auscultation Airway: Mallampati scale class II Neurological: alert and oriented Last oral intake: >/= 8 hours ASA classification: III Emergent: no Anesthetic plan: proceed Anesthesia type and monitoring: general GIVS and standard monitoring Results Review: All pre-operative results and documents have been reviewed as part of the pre- operative evaluation. Informed Consent: The patient's anesthetic plan and its attendant risks and benefits were discussed with the patient/family/POA. Questions were solicited and answers provided to the satisfaction of the patient/family/POA.
--- NOTE | 2025-07-19 09:22 | PM.IMHP ---
H&P: HPI History of Present Illness Date/Time: 07/19/25 09:22 Chief Complaint: Family history of colon cancer Narrative: This patient has family history of colorectal cancer. her father had colorectal cancer at age 40. Her last colonoscopy was 4 years ago. Review of Systems Review of Systems: All systems reviewed & are unremarkable except as noted in HPI and below PMFSH Past Medical History Medical History Change in bowel habits BMI 32.0-32.9,adult Skin lesion of lower extremity Change in nail appearance Right knee pain BMI 34.0-34.9,adult Grief Right hip pain Encounter for Medicare annual wellness exam Fall Facial injury BMI 35.0-35.9,adult Hx of cataract DJD (degenerative joint disease), multiple sites Allergic rhinitis Paresthesia of left arm BMI 38.0-38.9,adult Abdominal pain BMI 37.0-37.9, adult BMI 36.0-36.9,adult Acute hypokalemia BONIFACIO (acute kidney injury) Hypokalemia Dysphagia Chest pain Agatston coronary artery calcium score between 100 and 199 Elevated LFTs Body mass index (BMI) 45.0-49.9, adult Pre-diabetes MIO (obstructive sleep apnea) Atypical chest pain Dyshidrotic eczema Chronic headaches Mild reactive airways disease Hypothyroidism (acquired) Body mass index (BMI) 40.0-44.9, adult GERD (gastroesophageal reflux disease) Bilateral low back pain with sciatica Chronic cough Essential (primary) hypertension Left hip pain Mild persistent reactive airway disease without complication Mixed hyperlipidemia MIO (obstructive sleep apnea) uses oral appliance occasionally Hypertension Hyperlipidemia Surgical History Surgical History History of cholecystectomy H/O: hysterectomy Family History Family History Father Family history of malignant neoplasm of gastrointestinal tract Rectal Family history of malignant neoplasm Lymphoma Heart disease Mother Family history of pancreatic cancer, Onset Age: 75 Social History Social History Social History: Ms. Weller lives at home with her . She is independent in her daily activities. She works full-time. Her primary care provider is Dr. Rock Early. She designates her , Denis (goes by Johnny) as her surrogate decision maker. She would like to be a full code. Caffeine-tea/soda Smoking status: Never smoker Second hand tobacco smoke exposure: Yes Alcohol intake: current Alcohol use details: Drinks alcohol 3 times per year Substance use: never Substance use type: does not use Lack of Transportation: No Lack of Food: Never True Current Housing: I Have Housing Concerned About Future Housing: No Difficulty Paying Gas/Electric Bills: No Difficulty Paying for Meds: No Currently Unemployed: No Education: Master's Degree or Higher Difficulty w/ Childcare or Family Care: No Living arrangements: with family Gender identity (if verbalized by the patient): Female Spiritual care concerns: No Meds Home Medications and Allergies Home Medications ?Medication ?Instructions ?Recorded ?Confirmed ?Type loratadine-pseudoephedrine ER 10 1 tablet PO PRN PRN Allergy 10/16/19 07/19/25 History mg-240 mg tablet,extended Symptoms [id number] (Loratadine-D) cholecalciferol (vitamin D3) 1,250 1,250 mcg PO MONTHLY 08/17/21 07/03/25 History mcg (50,000 unit) capsule rizatriptan 10 mg tablet See Rx Instructions PO .COMPLEX #8 07/26/22 07/03/25 Rx tabs calcium carbonate 600 mg PO DAILY 11/24/22 07/19/25 History ibuprofen 200 mg tablet 200 mg PO Q6H PRN pain 11/24/22 07/03/25 History azelastine 137 mcg (0.1 %) nasal 1 - 2 spray intranasal BID PRN 06/24/23 07/19/25 Rx spray allergies #90 mL multivitamin 1 tablet PO DAILY 12/08/23 07/19/25 History tizanidine 4 mg tablet 4 mg PO TID PRN muscle spasticity 02/20/24 07/03/25 Rx #45 tabs levomefolate calcium 15 mg tablet 15 mg PO DAILY 04/19/24 07/03/25 History (L-Methylfolate) Magnesium Complex BYMOUTH 08/30/24 05/22/25 History Glucosamine and Chondroiton BYMOUTH 01/09/25 05/22/25 History coenzyme Q10 75 mg capsule (Ultra 75 mg PO DAILY 01/09/25 07/19/25 History CoQ10) dextromethorphan-guaifenesin ER 60 1 tablet PO Q12H PRN congestion 01/09/25 07/03/25 History mg-1,200 mg tab,extend release,12hr (Mucinex DM) rosuvastatin 20 mg tablet See Rx Instructions .Route 03/17/25 07/19/25 Rx .COMPLEX #90 tabs acyclovir 400 mg tablet See Rx Instructions .Route 04/05/25 07/19/25 Rx .COMPLEX #180 tabs levothyroxine 75 mcg tablet 75 mcg PO DAILY #90 tabs 04/08/25 07/19/25 Rx (Synthroid) terbinafine HCl 250 mg tablet 250 mg PO DAILY 05/22/25 07/19/25 History losartan 50 mg-hydrochlorothiazide 1 tablet PO DAILY 06/25/25 07/19/25 History 12.5 mg tablet potassium chloride 20 mEq See Rx Instructions .Route 07/04/25 07/19/25 Rx tablet,extended release .COMPLEX #180 tabs tirzepatide (weight loss) 7.5 7.5 mg (0.5 mL) subcut WEEKLY #2 mL 07/11/25 07/19/25 Rx mg/0.5 mL subcutaneous solution Allergies Allergy/AdvReac Type Severity Reaction Status Date / Time codeine Allergy Rash Verified 07/19/25 08:16 Vital Signs Vital Signs - 24 hr 07/19/25 08:22 Temperature 96.9 F L Pulse Rate 62 Respiratory Rate 16 Blood Pressure 129/69 Pulse Oximetry 100 Oxygen Delivery Room Air Exam Const: General: cooperative and healthy appearing Resp: Effort & Inspection: normal respiratory effort and able to speak in complete sentences Auscultation: clear to auscultation bilaterally Cardio: Rate: regular rate Rhythm: regular rhythm GI: Inspection: normal to inspection GI Palp: No No hepatosplenomegaly present Auscultation: normal bowel sounds Rectal Exam: deferred Skin: General skin exam: normal color Psych: Appearance: grossly normal Mental Status: mental status grossly normal Assessment and Plan Assessment and plan (1) Family hx of colon cancer: Code(s): Z80.0 - Family history of malignant neoplasm of digestive organs Status: Acute Assessment and Plan: The patient is deemed a good candidate for the procedure. Consent signed. Will proceed.
[2025-07-19 09:47] VITALS: BP 88/50; PULSE 60; RESP 19; O2SAT 100
[2025-07-19 09:57] VITALS: BP 94/37; PULSE 62; RESP 18; O2SAT 100
[2025-07-19 10:07] VITALS: BP 100/49; PULSE 60; RESP 20; O2SAT 100
== END 2025-07-19 10:25 | disposition home or self-care (01) ==
PROVIDERS: PCP Internal Medicine; Referring Provider Internal Medicine; Visit Provider Internal Medicine Gastroenterology
PROC: 0DJD8ZZ Inspection of Lower Intestinal Tract, Via Natural or Artificial Opening Endoscopic (ICD-10-PCS; CPT 45378; principal; 2025-07-19 09:30)
DX: Z12.11 Encounter for screening for malignant neoplasm of colon (principal); K57.30 Diverticulosis of large intestine without perforation or abscess without bleeding; K64.8 Other hemorrhoids; Z80.0 Family history of malignant neoplasm of digestive organs; E66.9 Obesity, unspecified; Z68.29 Body mass index [BMI] 29.0-29.9, adult
CPT/HCPCS: G0105; J2003; J2704; J7120

== ENCOUNTER 2025-08-29 12:15 | Outpatient (CLI) | payer MEDICARE, SELFPAY ==
--- OUTSIDE RECORDS SUMMARY | 2025-08-29 13:04 | XMS_ITS | Encounter Summary ---
Author Organization [facility] Address [address] [place] [address] Care Team Providers Care Premium Service Representative Name Role Phone Rock Early MD Primary Care Provider [phone] Reason for Visit * Reason Onset Date Comments Appointment 06/17/2025 Encounter Details Date Type Department Care Team (Late st Contact Info) Description 06/17/2025 Telephone [facility] - THERAPEUTIC CASE MANAGER [address] [facility] [address] [place] [id number] Kash Mcclelland MD [address] [place] [address] Appointment Social History Tobacco Use Types Packs/Day Years Used Date Smoking Tobacco: Never Passive Smoke Exposure: Never Smokeless Tobacco: Never Alcohol Use Standard Drinks/Week Comments Yes 0 (1 standard drink = 0.6 oz pur e alcohol) occ PHQ-2 Answer Date Recorded Patient Health Questionnaire-2 Score 0 06/17/2025 Comments No Sex and Gender Information Value Date Recorded Sex Assigned at Not on file Legal Sex Female 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 Question Answer Date of Assessment Author Little interest or pleasure in doing things Not at all 06/17/2025 12:18 PM CDT Maryanne Hartman Feeling down, depressed, or hopeless Not at all 06/17/2025 12:18 PM JORDYNT Maryanne Hartman Patient Health Questionnaire -2 Score 0 06/17/2025 12:18 PM CDT Maryanne Hartman documented as of this encounter Miscellaneous Notes * Telephone Encounter - Wilfredo Don - 06/17/2025 10:01 AM CDT Pt returning missed call regarding an earlier appt time @12 she did confirm shell be able to make it please give her another call to verify documented in this encounter Plan of Treatment Upcoming Encounters Date Type Department Care Team (Late st Contact Info) Description 09/09/2025 11:30 AM AGRICULTURAL TECHNICIAN Office Visit [facility] - THERAPEUTIC CASE MANAGER [address], [facility] [address] [place] [address] Kash Mcclelland MD [address] [facility] [address] [place] [address] documented as of this encounter Visit Diagnoses Not on filedocumented in this encounter Care Teams Premium Service Representative Relationship Specialty Start Date End Date Rock Early MD [address] [place] [id number] PCP - General 04/20/22 documented as of this encounter
--- OUTSIDE RECORDS SUMMARY | 2025-08-29 13:04 | XMS_ITS | Clinical Summary ---
Author Organization [facility] Address [address] [place] [address] Care Team Providers Care Electric Trucker Name Role Phone Rock Early MD Primary Care Provider [phone] Source Comments [facility],non-[facility] and Associated Physician Practices is amultiple site organization consisting of ambulatory clinics and hospital sitesin [place], [place], [place] and [place]. This disclosure is being madepursuant to the Care Everywhere program and may not contain all information available regarding this patient. Last updated 18.[facility] Allergies Active Allergy Reactions Criticality Noted Date Comments Codeine Rash Medium 12/30/2017 Other reaction(s): Other (See Comments) . . Medications * Be aware that medications may not be up to date on this document. Alwaysverify current medications with the patient. levothyroxine (Synthroid) 75 MCG tablet Take 1 (one) tablet by mouth once daily 04/08/20 25 Active losartan-hydro CHLOROthiazide (Hyzaar) 100-25 MG tablet Take 1 (one) tablet by mouth once daily 04/04/20 25 Active acyclovir (Zovirax) 400 MG tablet Take 1 (one) tablet by mouth 2 times daily 05/03/20 25 Active rosuvastatin (Crestor) 20 MG tablet Take 1 (one) tablet by mouth once daily Active rimegepant (Nurtec ODT) 75 MG tablet Take 75 mg by mouth as needed for Migraine Active rizatriptan (Maxalt) 10 MG tablet Take 1 (one) tablet by mouth as needed for Migraine Active potassium chloride ER (K-TAB) 20 MEQ tablet Take 1 (one) tablet by mouth 2 times daily 04/09/20 25 Active tiZANidine (Zanaflex) 4 MG tablet Take 1 (one) tablet by mouth at bedtime Active terbinafine (LamISIL) 250 MG tablet Take 1 (one) tablet by mouth once daily 06/06/20 25 Active azelastine-flu ticasone (Dymista) 137-50 MCG/ACT nasal spray [place] into each nostril once daily Active tirzepatide (Mounjaro) 2.5 MG/0.5ML injection Inject 2.5 (two and one-half) mg subcutaneously every 7 days (once a week) Active Vitamin D-Vitamin K (VITAMIN K2-VITAMIN D3 PO) Take 5 mL by mouth every morning Active Fexofenadine HCl (MUCINEX ALLERGY PO) Take by mouth as needed Active L-METHYLFOLATE PO Take 15 mg by mouth every morning Active Multiple Vitamin (MULTIVITAMIN+ PO) Take by mouth every morning Active CALCIUM MAGNESIUM ZINC PO Active GLUCOSAMINE-CH ONDROIT-VIT C-MN PO Active Coenzyme Q10 (CoQ10) 200 MG Take 200 (two hundred) mg by mouth Active cyanocobalamin (Vitamin B-12) 1000 MCG tablet Take 1 (one) tablet by mouth once daily Active ibuprofen (Motrin) 600 MG tablet Take 1 (one) tablet by mouth every 6 hours as needed for Pain 40 tablet 08/01/20 25 Active acetaminophen (Tylenol) 325 MG tabletIndicati ons:Pain Take 2 (two) tablets by mouth every 6 hours as needed for Pain Maximum allowable Acetaminophen amount = 4 Grams (4000 mg) / 24 hours. Reasons: Pain 40 tablet 08/01/20 25 Active oxyCODONE, immediate release, (Roxicodone) 5 MG tabletIndicati ons:Post-opera tive state Take 1 (one) tablet by mouth every 6 hours as needed for Pain 12 tablet 08/01/20 25 Active senna (Senokot) 8.6 MG tablet Take 2 (two) tablets by mouth once daily Hold for loose stools or diarrhea 30 tablet 08/01/20 25 Active ibuprofen (Motrin) 200 MG tablet Take 1 (one) tablet by mouth every 6 hours as needed for Pain 025 Discontin ued(Dose Adjustmen t) Naproxen Sodium (ALEVE PO) Take by mouth 2 times daily 025 Discontin ued(List Clean-Up) Active Problems Problem Noted Date Diagnosed Date Pre-op testing 07/31/2025 Encounters Date Type Department Care Team Description 07/31/2025 11:30 AM CDT Anesthesia Event [facility] [address] [place] [address] Woody Beyer MD WillBalbinaKatina H, CASINO CASHIER-AUDIOVISUAL PRODUCTION SPECIALIST 07/31/2025 10:36 AM CDT - 07/31/2025 1:57 PM CDT Surgery [facility] [address] [place] [address] Kash Mcclelland MD ANTERIOR POSTERIOR ENTEROCELE REPAIR 07/31/2025 9:01 AM CDT - 2025 9:59 AM CDT Hospital Encounter [facility] 5E ANTEPARTUM/MOTHER BABY [address] [place] [address] Kash Mcclelland MD WORD PROCESSOR OPERATOR Discharge Disposition: Home or Self Care 07/31/2025 Travel 07/25/2025 Travel 06/21/2025 10:45 AM CDT Procedure visit [facility] - WORD [place] [address] Kash Mcclelland MD OAB (overactive bladder) ; Cystocele, midline; Vaginal vault prolapse after hysterectomy; Rectocele; Vaginal enterocele; Urge incontinence; Stress incontinence 06/21/2025 Telephone [facility] - WORD PROCESSOR OPERATOR Maryana Ph[address] [address] Kash Mcclelland MD Request Lab Order 06/21/2025 Travel 06/17/2025 12:00 PM CDT Office Visit [facility] - WORD PROCESSOR OPERATOR [address] [place] [phone] Kash Mcclelland MD Vaginal vault prolapse after hysterectomy (Primary Dx); Cystocele, midline; Rectocele; Vaginal enterocele; Urge incontinence 06/17/2025 Travel 06/17/2025 Telephone [facility] - WORD PROCESSOR OPERATOR Maryana Ph[address] [address] Kash Mcclelland MD Appointment (Earlier appt time) 06/17/2025 Telephone [facility] - WORD PROCESSOR OPERATOR [address] [place] [phone] Kash Mcclelland MD Appointment 06/13/2025 Telephone [facility] - WORD PROCESSOR OPERATOR [address] [place] [phone] Kash Mcclelland MD Reminder Call (06/17/25 appt) from Last 3 Months Family History Medical History Relation Name Comments Cancer Father Hypertension Father Cancer Mother Hypertension Mother Relation Name Status Comments Father Mother Social History Tobacco Use Types Packs/Day Years Used Date Smoking Tobacco: Never Passive Smoke Exposure: Never Smokeless Tobacco: Never Tobacco Cessation:Counseling Given: Not Answered Alcohol Use Standard Drinks/Week Comments Yes 0 (1 standard drink = 0.6 oz pur e alcohol) rare AUDIT-C Answer Date Recorded Q1: How often do you have a drink containing alc ohol? Monthly or less 2025 Q2: How many drinks containi ng alcohol do you have on a typical day when you are drinking? 1 or 2 2025 Q3: How often do you have si x or more drinks on one occasion? Never 2025 Overall Financial Resource Strain (CARDIA) Answe r Date Recorded How hard is it for you to pa y for the very basics like food, housing, medical care, and heating? Not hard at all 2025 PHQ-2 Answer Date Recorded Patient Health Questionnaire-2 Score 0 06/17/2025 [facility] Occupat ional Health - Occupational Stress Questionnaire Answer Date Recorded Do you feel stress - tense, restless, nervous, or anxious, or unable to sleep at night because your mind is troubled all the time - these days? Not at all 2025 Hunger Vital Sign Answer Date Recorded Within the past 12 months, y ou worried that your food would run out before you got the money to buy more. Never true 08/01/20 25 Within the past 12 months, t he food you bought just didn't last and you didn't have money to get more. Never true 2025 PRAPARE - Transportation Answer Date Re corded In the past 12 months, has l ack of transportation kept you from medical appointments or from getting medications? No 12/2024 In the past 12 months, has l ack of transportation kept you from meetings, work, or from getting things needed for daily living? No 2025 Housing Stability Vital Sign Answer Wilder e Recorded In the last 12 months, was t here a time when you were not able to pay the mortgage or rent on time? No 2025 In the past 12 months, how m any times have you moved where you were living? 0 2025 At any time in the past 12 m [facility], were you homeless or living in a retirement (including now)? No 2025 Comments No Sex and Gender Information Value Date Recorded Sex Assigned at Not on file Legal Sex Female 6:14 AM COMMUNITY YOUTH SECRETARY Gender Identity Not on file Sexual Orientation Not on file Last Filed Vital Signs Vital Sign Reading Time Taken Comments Blood Pressure 101/50 2025 3:55 AM CDT Pulse 60 2025 3:55 AM CDT Temperature 36.7 C (98.1 F) 2025 3:55 AM CDT Respiratory Rate 16 2025 3:55 AM CDT Oxygen Saturation 96% 2025 3:55 AM CDT Inhaled Oxygen Concentration - - Weight 81 kg (178 lb 8 oz) 2025 6:40 AM CD T Height 165.1 cm (5' 5) 2025 6:40 AM CDT Body Mass Index 29.7 2025 6:40 AM CDT Plan of Treatment Upcoming Encounters Date Type Department Care Team (Late st Contact Info) Description 09/09/2025 11:30 AM COMMUNITY YOUTH SECRETARY Office Visit [facility] - WORD PROCESSOR OPERATOR [address] [place] [address] Kash Mcclelland MD [address] [place] [address] Health Maintenance Due Date Last Done Comments BONE DENSITY TESTING 1955 COLOGUARD (AGES 45-75) - COLON CA SCREENING 1957 COLON MONITORING 1957 COLONOSCOPY - COLON CA SCREENING 1957 CT COLONOGRAPHY - COLON CA SCREENING 1957 Colorectal Cancer Screening 1957 FIT - COLON CA SCREENING 1957 FLEX SIG - COLON CA SCREENING 1957 MAMMOGRAM 1957 MEDICARE AWV 12 MONTHS 1957 HEPATITIS C SCREENING 07/28/1975 DTAP/TDAP/TD VACCINES (1 - Tdap) 1976 PNEUMOCOCCAL VACCINE 50+ (1 of 1 - PCV) 2007 ZOSTER VACCINE (1 of 2) 2007 COVID-19 VACCINE (3 - 2024- season) 2025 12/06/2021, 01/06/2021 INFLUENZA VACCINE (#1) 2025 , 08/20/2020, 07/31/2014, Additional history exists SCREENING FOR DIABETES 07/15/2028 07/15/2025 Respiratory Syncytial Virus (RSV) Vaccine Pt: or over 60 yrs (1 - 1-dose 75+ series) 2032 DEPRESSION SCREENING Completed 06/17/2025 HEPATITIS B VACCINE Aged Out No longe [...] on patient's age to complete this topic Medical Devices Implanted Type Area Tack Coverer Device Identifier Shelf Expiration Date Model / Serial / Lot Sys Ureth Supp Lance Lynx Adv Trnvg Implanted:Qty: 1 on 07/31/2025 by Kash Mcclelland MD at [facility] N/A: Vagina Intexys Codie 07/31/2027 [id number] / / [id number] Procedures Procedure Name Priority Date/Time Associated Diagnosis Comments CBC W AUTO DIFFERENTIAL AM Draw 2025 2:59 AM CDT Pre-op testing LARYNGEAL MASK AIRWAY Routine 07/31/2025 11:45 AM CDT [place] SLING OPER STRES INCONTINENCE 07/31/2025 11:00 AM CDT Diagnosis unknown Special Needs NEED [employer] BLUE SLING. 07/12 CDM NJ COMBO ANT/POST COLPORR+ENTEROCELE 07/31/2025 11:00 AM CDT Diagnosis unknown Special Needs NEED [employer] BLUE SLING. 9 CDM REF LAB-SPECIMEN STATUS REPORT Routine 07/15/2025 1:08 PM CDT BASIC METABOLIC PANEL (CALCIUM TOTAL) Routine 07/15/2025 1:08 PM CDT CBC W/O DIFFERENTIAL Routine 07/15/2025 1:08 PM CDT NJ CYSTOMETROGRAM W/[employer]OR NUR[employer]OL&UP Routine 06/21/2025 11:35 AM CDT Stress incontinence NJ INTRAABDOMINAL PRESSURE TEST Routine 06/21/2025 11:35 AM CDT Stress incontinence NJ ANAL/URINARY MUSCLE STUDY Routine 06/21/2025 11:35 AM CDT Stress incontinence URINALYSIS AUTO - POINT OF CARE (AMB) [facility] Routine 06/21/2025 11:21 AM CDT OAB (overactive bladder) from Last 3 Months Results * (ABNORMAL) CBC W AUTO DIFFERENTIAL (2025 2:59 AM CDT) WBC 8.7 4.0 - 10.7 x10E9/L 2025 3:50 AM CDT [facility] RBC Count 3.15(L) 3.90 - 5.20 x10E12/L 2025 3:50 AM CDT [facility] Hemoglobin 9.3(L) 11.9 - 15.8 g/dL 2025 3:50 AM CDT [facility] Hematocrit 27.8(L) 34.8 - 46.1 % 2025 3:50 AM CDT [facility] MCV 88.3 80.0 - 98.0 fL 2025 3:50 AM CDT [facility] MCH 29.5 26.7 - 33.6 pg 2025 3:50 AM CDT [facility] MCHC 33.5 31.7 - 36.3 g/dL 2025 3:50 AM CDT [facility] RDW-CV 13.2 11.3 - 14.8 % 2025 3:50 AM CDT [facility] Platelet Count 182 150 - 420 x10E9/L 2025 3:50 AM CDT [facility] MPV 9.4 7.8 - 11.4 fL 2025 3:50 AM CDT [facility] Neutrophil % 85.4(H) 41.0 - 74.0 % 2025 3:50 AM CDT [facility] Lymphocyte % 4.8(L) 17.0 - 47.0 % 2025 3:50 AM CDT [facility] Monocyte % 9.2 3.0 - 11.0 % 2025 3:50 AM CDT [facility] Eosinophil % 0.1 0.0 - 7.0 % 2025 3:50 AM CDT [facility] Basophil % 0.2 0.0 - 1.6 % 2025 3:50 AM CDT [facility] Immature Granulocytes % 0.3 0.0 - 1.0 % 2025 3:50 AM CDT [facility] Neutrophil Absolute 7.41 1.60 - 7.50 x10E9/L 2025 3:50 AM CDT [facility] Lymphocyte Absolute 0.42(L) 1.00 - 4.40 x10E9/L 2025 3:50 AM CDT [facility] Monocyte Absolute 0.80 0.15 - 1.00 x10E9/L 2025 3:50 AM CDT [facility] Eosinophil Absolute 0.01 0.00 - 0.60 x10E9/L 2025 3:50 AM CDT [facility] Basophil Absolute 0.02 0.00 - 0.13 x10E9/L 2025 3:50 AM CDT [facility] Blood BLOOD SPECIMEN / Unknown Lab Venipuncture / Unknown 2025 2:59 AM CDT 2025 3:36 AM CDT us Kash Mcclelland MD LAB - HEMATOLOGY ORDERAB LES Final Result [facility] [address] [place] [address] * LARYNGEAL MASK AIRWAY (07/31/2025 11:45 AM CDT) Narrative Katina Stevens APRN-CRNA - 07/31/2025 11:45 AM CDT Katina Stevens APRN-CRNA 07/31/2025 11:45 AM LMA Placement Procedure/LDA Note: Patient Location: OR. LMA Insertion Date/Time: 07/31/2025 11:37 AM Procedure: LMA Pretreatment: 100% O2 Induction: standard IV Patient position: supine. Mask Ventilation: easy Type: LMA Size: 4 Number of Attempts: 1. Cuff inflation pressure (CM H20): 20 Placement verified by: bilateral breath sounds, chest auscultation and CO2 monitor Dentition unchanged? Yes Procedure Start Time: 07/31/2025 11:37 AM. Staff Section Anesthesia Provider: Katina Stevens APRN-CRNA, Performed the procedure Provider #1: Woody Beyer MD. Woody Beyer MD GENERAL ANESTHESIA ORDERABLE S Final Result * REF LAB-SPECIMEN STATUS REPORT (07/15/2025 1:08 PM CDT) Specimen Status Report Comment [facility] INSURANCE BILL Comment: Ambig Abbrev BMP8 Default Ambig Abbrev BMP8 Default A hand-written panel/profile was received from your office. In accordance with the [facility] Ambiguous Test Code Policy dated April 2003, we have completed your order by using the closest currently or formerly recognized AMA panel. We have assigned Basic Metabolic Panel (8), Test Code #042894 to this request. If this is not the testing you wished to receive on this specimen, please contact the [facility] Client Inquiry/Technical Services Department to clarify the test order. We appreciate your business. 07/15/2025 1:08 PM CDT 07/15/2025 Narrative [facility] INSURANCE BILL - 07/16/2025 7:09 AM CDT Performed at: [address] [place] [id number] Winery Worker: Serge Vigil PhD, Phone: [phone] us Kash Mcclelland MD LAB - CHEMISTRY ORDERABL ES Final Result [facility] INSURANCE BILL [address] [place] [address] * CBC W/O DIFFERENTIAL (07/15/2025 1:08 PM CDT) WBC 6.1 3.4 - 10.8 x10E3/uL [facility] INSURANCE BILL RBC 4.03 3.77 - 5.28 x10E6/uL [facility] INSURANCE BILL Hemoglobin 11.8 11.1 - 15.9 g/dL [facility] INSURANCE BILL Hematocrit 36.9 34.0 - 46.6 % [facility] INSURANCE BILL MCV 92 79 - 97 fL [facility] INSURANCE BILL MCH 29.3 26.6 - 33.0 pg [facility] INSURANCE BILL MCHC 32.0 31.5 - 35.7 g/dL [facility] INSURANCE BILL RDW 13.9 11.7 - 15.4 % [facility] INSURANCE BILL Platelet Count 257 150 - 450 x10E3/uL [facility] INSURANCE BILL 07/15/2025 1:08 PM CDT 07/15/2025 Narrative [facility] INSURANCE BILL - 07/16/2025 7:09 AM CDT Performed at: [address] [place] [id number] Winery Worker: Serge Vigil PhD, Phone: [phone] us Kash Mcclelland MD LAB - HEMATOLOGY ORDERAB LES Final Result Performing Organization Address City/[facility]/ZIP Co de Phone Number [facility] INSURANCE BILL [address] [place] [address] * BASIC METABOLIC PANEL (CALCIUM TOTAL) (07/15/2025 1:08 PM CDT) Glucose 88 70 - 99 mg/dL [facility] INSURANCE BILL BUN 14 8 - 27 mg/dL [facility] INSURANCE BILL Creatinine 0.88 0.57 - 1.00 mg/dL [facility] INSURANCE BILL eGFR by CKD-EPI 72 >59 mL/min/1.7 3 [facility] INSURANCE BILL BUN/Creatinine Ratio 16 12 - 28 [facility] INSURANCE BILL Sodium 142 134 - 144 mmol/L [facility] INSURANCE BILL Potassium 4.2 3.5 - 5.2 mmol/L [facility] INSURANCE BILL Chloride 106 96 - 106 mmol/L [facility] INSURANCE BILL CO2 24 20 - 29 mmol/L [facility] INSURANCE BILL Calcium 9.5 8.7 - 10.3 mg/dL [facility] INSURANCE BILL 07/15/2025 1:08 PM CDT 07/15/2025 Narrative [facility] INSURANCE BILL - 07/16/2025 7:09 AM CDT Performed at: [address] [id number] Winery Worker: Serge Vigil PhD, Phone: [phone] us Kash Mcclelland MD LAB - CHEMISTRY ORDERABL ES Final Result Performing Organization Address [facility] Co de Phone Number [facility] INSURANCE BILL [address] [place] [address] * NJ ANAL/URINARY MUSCLE STUDY, NJ INTRAABDOMINAL PRESSURE TEST, [place] CYSTOMETROGRAM W/DIRECTOR NUR[employer]OL&UP (06/21/2025 11:35 AM CDT) Narrative Kash Mcclelland MD - 06/21/2025 11:35 AM CDT Kash Mcclelland MD 06/21/2025 12:25 PM Procedure Note Multichannel Urodynamic Testing CPT Codes: 03603 simple cystometrogram with VPS & UCPP 51729 intra-abdominal pressure test 24811 EMG anal/urethral sphincter A4353 intermittent urinary catheter 02697 urinalysis, automated without microscopy The physician performed both the technical component of performing the procedure, as well as the professional component of interpreting the procedure. Indications: Multichannel urodynamic testing is being performed to fully evaluate the patient's voiding dysfunction and incontinence. The risks, benefits and alternatives have been discussed with emphasis on discomfort and urinary tract infections. Procedure Details: The patient's urethral meatus was cleaned with Betadine (used if not allergic to topical iodine, otherwise hibiclens was used). A 7 Fr. Single sensor air-charged catheter was place into the vagina or into the rectum if the pelvic prolapse required restitution for adequate testing. A 7 Fr. Dual sensor air-charged catheter was inserted into the urethra. During testing, the patient's prolapse was reduced with either procto-swabs, or digitally. The residual urine was 20 cc. The residual urine was determined by urethral catheterization. Cystometrogram: The bladder was filled with room temperature water at a rate of 100 cc per minute. The patient tolerated this and she was found to have: First sensation (S1) at 45 cc. Sensation of fullness at 101 cc. Maximal cystometric capacity of 295 cc. She does have normal bladder compliance. She does not have loss of urine with a rise in detrusor pressure. Valsalva leak point pressure (VLPP, in cmH20): VLPP at 150 cc: 38, small leak VLPP at MCFP : 18, moderate leak Urethral pressure profilometry (UPP): Maximal urethral closure pressure (MUCP): 33 Leakage amount: Moderate amount Voiding pressure study (DIRECTOR N[employer]): She voided via detrusor contraction and urethral relaxation. Her maximal detrusor during void (Pdet max) was 87 cm water. Her void was phasic. Her post void residual by calculation during the voiding pressure study was 0 cc. Electromyolography (EMG) Provocative maneuvers produced appropriate changes in waveforms. EMG patches were placed perianally and on the leg for ground. Normal response with squeeze and relaxation was noted. Normal EMG was noted with appropriate relaxation with study. No evidence of detrusor dyssynergia. Impression: MCFP 295. + stress incontinence, no detrusor overactivity. Emptied effectively. us Kash Mcclelland MD PROCEDURE/MINOR SURGICAL ORDERABLES Final Result * URINALYSIS AUTO - POINT OF CARE (AMB) [facility] (06/21/2025 11:21 AM CDT) Glucose UA - [facility] [address] Bilirubin UA POCT - [facility] [address] Ketones UA POCT - [facility] [address] Specific [place] UA 1.[address] [facility] [address] Blood Urine POCT - [facility] [address] pH UA 6.[address] [facility] [address] Protein UA + [facility] [address] Urobilinogen UA - [facility] [address] Nitrite UA + [facility] [address] WBC UA - [facility] [address] Urine URINE / Unknown 06/21/2025 1 1:21 AM CDT us Kash Mcclelland MD LAB - POINT OF CARE JUAN SHAH Final Result [facility] [address] [place] [address], [facility] [phone] from Last 3 Months Insurance MEDICARE AENA Care Teams Electric Trucker Relationship Specialty Start Date End Date Rock Early MD [address] [place] [address] PCP - General 04/20/22
--- OUTSIDE RECORDS SUMMARY | 2025-08-29 13:04 | XMS_ITS | Clinical Summary ---
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 Gender Identity Not on file Sexual Orientation [...] RS (1 of 1 - PCV) 2007 RSV VACCINE (60+ or ) (1 - Risk 50-74 years 1-dose series) 2007 ZOSTER VACCINE (1 of 2) 2007 BREAST CANCER SCREENING 11/11/2021 11/11/19, 11/11/2020, 08/10/2019, Additional history exists OSTEOPOROSIS SCREENING 2022 06/23/2017 INFLUENZA VACCINE (#1) 2025 COLORECTAL SCREENING 09/12/2029 09/12/2019 Colorectal Cancer Screening 09/12/2029 Medical Devices Implanted Type Area Process Control Supervisor Device Identifier Shelf Expiration Date Model / Serial / Lot Breast Marker Left: Breast Insurance RX [employer] Commercial RX [employer] (INTERNAL) [facility] Internal Plans Advance Directives For more information, please contact: [phone] * Full Code (Latest Code Status on [...]
--- OUTSIDE RECORDS SUMMARY | 2025-08-29 13:05 | XMS_ITS | Clinical Summary ---
Author Organization [facility] Address [facility] [place] [address] Care Team Providers Care Glue Reel Operator Name Role Phone Rock Early MD Primary Care Provider [phone] Active Problems Problem Noted Date Diagnosed Date [...] Scan (General) 2022 COVID-19 Vaccine (3 - 2024-2 6 season) 2025 12/06/2021, 01/06/2021 Influenza Adult (#1) 2025 08/20/2020, 07/31/2014, 08/09/2012 RSV Immunization or 60+ Years (1 - 1-dose 75+ series) 2032 Pneumococcal Vaccine: 50+ Years Completed 09/25/2022 Hepatitis A Vaccines Aged Out No long er eligible based on patient's age to complete this topic Meningococcal B Vaccine Aged Out No l onger eligible based on patient's age to complete this topic Meningococcal Vaccine Aged Out No savannah marino eligible based on patient's age to complete this topic RSV Immunizations Under 20 Months Aged Out No longer eligible b ased on patient's age to complete this topic Insurance MEDICARE [facility] Care Teams Glue Reel Operator Relationship Specialty Start Date End Date Rock Early MD [address] - [facility] [address] [place] [address] PCP - General INTERNAL MEDICINE 02/21/24
[2025-08-29 13:21] LABS: Alanine Aminotransferase 16 U/L (6-35); Aspartate Amino Transferase 36 U/L (14-36)
== END 2025-08-29 12:16 | disposition home or self-care (01) ==
LOC: ANHLAB 12:19
PROVIDERS: PCP Internal Medicine; Visit Provider Podiatrist Foot & Ankle Surgery
DX: B35.1 Tinea unguium (principal)
CPT/HCPCS: 36415; 84450; 84460

== ENCOUNTER 2025-09-23 12:19 | Outpatient (CLI) | payer MEDICARE, SELFPAY ==
--- OUTSIDE RECORDS SUMMARY | 2017-11-25 03:05 | XMS_ITS | Continuity of Care Document ---
Author Organization [facility] Address [address] [place] [address] Phone Care Team Providers Care Audiovisual Technician Name Role Phone Markos Mendoza MD Unavailable Unavailable Allergies, Adverse Reactions, Alerts Substance Reaction Status Criticality codeine Active No Information Medications Medication Instructions Dosage Effective Dates (start - stop) Status Comments Synthroid 125 mcg tablet take 1 tablet by oral route every day 125 MCG - Active Claritin-D 12 Hour 5 mg-120 mg tablet,extended release take 1 tablet by oral route every 12 hours 1.00 tablet - Active ibuprofen 400 mg tablet take 1 tablet by oral route every 4 - 6 hours as needed 400 MG - Active losartan 100 mg-hydrochlorothiazi de 12.5 mg tablet take 1 tablet by oral route every day 1.00 tablet - Active Maxalt 10 mg tablet take 1 tablet by oral route once, may repeat at 2 hour intervals; do not exceed 30 mg in 24 hours 10 MG - Active Mucinex 600 mg tablet, extended release take 1 tablet by oral route every 12 hours as needed 600 MG - Active QNASL 40 mcg/actuation nasal aerosol spray - Active simvastatin 40 mg tablet take 1 tablet by oral route every day in the evening 40 MG - Active acyclovir 400 mg tablet take 1 Tablet by oral route every 12 hours for 10 days while awake 400 MG - Active Procedures Procedure Date Pt Not Seen Enc Created In Error 2017 CATARACT SURG W/IOL, 1 STAGE NON MED NEC IOL PREOP CATARACT SURG W/IOL, 1 STAGE LRI OFFICE/OUTPATIENT VISIT, NEW OPHTHALMIC BIOMETRY OPHTHALMIC BIOMETRY MICROFLUID ZACHARY TEARS MCR ONLY 016 MICROFLUID ZACHARY TEARS MCR ONLY 016 Advance Directives Directive Yes / No Effective Date File Name No Information Encounters Encounter Description Practice Location Reason(s) For Visit Diagnoses Date Provider Providers Copied on Encounter [facility], [address] [place] [address], [id number], tel:[phone] OPH CONSULT ANABELLA GARIBAY No Information 8 Reji Burrows. [address], [address], [place], [place], [id number] , . tel:[phone] Referring Provider: Markos James, [address] [place] [address], [address] . tel:[phone] [facility], [address] [place] [address], [id number], tel:[phone] [facility] No Information 6 Reji Burrows. [address], [address], [place], [place], [id number] , [place]. tel:[phone] Referring Provider: Markos James, [address], [place], [address] . tel:[phone] [facility], [address] [place] [address], [id number], tel:[phone] OPH CONSULT ANABELLA GARIBAY No Information 6 Reji Burrows. [address], [address], [place], [id number] , [place]. [phone] Referring Provider: Markos James, [address], [place], [address] . tel:[phone] [facility], [address] [place] [address], [id number], tel:[phone] [facility] No Information 6 Reji Burrows. [address], [address], [place], [place], [id number] , . tel:[phone] Referring Provider: Markos James, [address], [place], [address] . tel:[phone] [facility], [address] [place] [address], [id number], tel:[phone] OPH CONSULT ANABELLA GARIBAY No Information Reji Burrows. [address], [address] [place], [place], [id number] , . tel:[phone] Referring Provider: Markos James, [address], [place], [address] . tel:[phone] OFFICE/OUTPA TIENT VISIT, [facility], [address] [place] [address], [id number], tel:[phone] OPH CONSULT ANABELLA GARIBAY blurry vision (chief complaint) Atrophy of thyroid (acquired)Acute bilateral papillary conjunctivitisEs sential (primary) hypertensionAge- related nuclear cataract, bilateralSquamou s blepharitis left lower eyelidSquamous blepharitis left upper eyelidSquamous blepharitis right lower eyelidSquamous blepharitis right upper eyelidPresbyopia 6 Reji Burrows. [address], [address] [place], [place], [id number] , . tel:[phone] Referring Provider: Markos James, [address], [place], [address] . tel:[phone] Family History Family Member Type Diagnosis Age At Onset Father Problem (finding) degenerative disorder o f macula Mother Problem (finding) malignant neoplasm of p ancreas Father Problem (finding) cancer of colon Father Problem (finding) Leukemia Payers Payer name Insurance type Covered republican ID Authoriza tion(s) No Information Social History Type Description Quantity Date Captured Comments Sex Female Smoking Status No Information Chief Complaint And Reason For Visit No Information Reason For Referral Reason For Referral No Information History Of Present Illness Encounter Date Complaint History Of Prese nt Illness blurry vision Patient presents for blurry VA OD gradually worsening over the last 6-12 months. The symptom is constant and the condition is moderate. Patien states night VA getting difficult due to glare. Patient referred by Dr. Agee for cat eval OD. Patient wears a CTL in OS only for DV. PAtient wear readers. Functional Status Date Functional Assessmen t No Information Instructions Date Instruction Additional Infor mation Impression/Plan - Di scussed diagnosis in detail with patient. No treatment is required at this time. Educational materials provided:Blepharatis. Related to Squamous blepharitis right upper eyelid Impression/Plan - Di scussed diagnosis in detail with patient. No treatment is required at this time. Educational materials provided:Blepharatis. Related to Squamous blepharitis right lower eyelid Impression/Plan - Di scussed diagnosis in detail with patient. No treatment is required at this time. Educational materials provided:Blepharatis. Related to Squamous blepharitis left upper eyelid Impression/Plan - Di scussed diagnosis in detail with patient. No treatment is required at this time. Educational materials provided:Blepharatis. Related to Squamous blepharitis left lower eyelid Impression/Plan - Ne w glasses Rx was not given today. Related to Presbyopia Impression/Plan - Di scussed all risks, benefits, procedures and recovery. Patient understands changing glasses will not improve vision. Patient desires to have surgery, recommend phacoemulsification with intraocular lens.Dr Art Black Standard IOLAim distance Related to Age-related nuclear cataract, bilateral Impression/Plan - As per PCP, no change to current treatment Related to Essential (primary) hypertension Impression/Plan - Di scussed diagnosis in detail with patient. No treatment is required at this time. Will continue to observe condition and or symptoms. Related to Acute bilateral papillary conjunctivitis Impression/Plan - As per PCP, no change to current treatment Related to Atrophy of thyroid (acquired) Assessments Type Assessment Date No Information Patient Care Teams Name Effective Dates (start - stop) Status Members No Information
[2025-09-23 13:07] LABS: Hematocrit 34.8 % (37.0-47.0); Hemoglobin 11.5 g/dL (12.0-15.0); Immature Granulocyte Percent A 0.3 % (0-0.5); Lymphocytes Absolute Auto 0.77 K/mm3 (0.9-3.2); Mean Corpuscular HGB Conc 33.0 g/dl (32-36); Mean Corpuscular Hemoglobin 29.6 pg (26-34); Mean Corpuscular Volume 89.7 fl (80-100); Nucleated Red Blood Cells Absolute Auto 0.000 K/mm3 (0.0-0.012); Nucleated Red Blood Cells Perc 0.0 % (0.0-0.2); Platelet Count Result 195 k/mm3 (150-375); Red Blood Count 3.88 M/mm3 (4.2-5.4); White Blood Count 5.8 K/mm3 (4.5-10.0)
[2025-09-23 13:31] LABS: Alanine Aminotransferase 18 U/L (6-35); Albumin Level 4.2 g/dL (3.5-5.1); Alkaline Phosphatase 70 U/L (38-126); Anion Gap 8 mmol/L (4-12); Aspartate Amino Transferase 31 U/L (14-36); Bilirubin,Total 1.4 mg/dL (0.2-1.3); Blood Urea Nitrogen 12 mg/dL (7-17); Calcium 9.5 mg/dL (8.4-10.2); Carbon Dioxide 27 mmol/L (22-30); Chloride 102 mmol/L (98-107); Cholesterol 132 mg/dL (0-200); Estimated Glomerular Filt Rate > 60; Glucose 88 mg/dL (65-110); HDL Direct 67 mg/dL; Potassium 3.8 mmol/L (3.4-5.0); Sodium 137 mmol/L (137-145); Total Protein 7.1 g/dL (6.3-8.2); Triglycerides 80 mg/dL (<150)
[2025-09-23 13:43] LABS: Free T4 Free Thyroxine 1.74 ng/dL (0.78-2.19)
[2025-09-23 14:03] LABS: Thyroid Stimulating Hormone 0.885 uIU/mL (0.465-4.680)
--- OUTSIDE RECORDS SUMMARY | 2025-09-23 14:12 | XMS_ITS | Clinical Summary ---
Author Organization [facility] Address [facility] [place] [address] Care Team Providers Care Auto Locator Name Role Phone Rock Early MD Primary Care Provider [phone] Active Problems Problem Noted Date Diagnosed Date [...] age to complete this topic Insurance MEDICARE [facility] Care Teams Auto Locator Relationship Specialty Start Date End Date Rock Early MD [address] [phone] PCP - General INTERNAL MEDICINE 02/21/24
--- OUTSIDE RECORDS SUMMARY | 2025-09-23 14:12 | XMS_ITS | Clinical Summary ---
Author Organization [facility] [employer] Address [address] [place] [address] Care Team Providers Care Fire Control System Installer Name Role Phone Rock Early MD Primary Care Provider [phone] Source Comments [facility] [employer],non-[facility] Affiliates and Associated Physician Practices is amultiple site organization consisting of ambulatory clinics and hospital sitesin [place], [place], [place] and [place]. This disclosure is being madepursuant to the Care Everywhere program and may not contain all information available regarding this patient. Last updated 18.[facility] [employer] Allergies Active Allergy Reactions Criticality Noted Date [...] mouth 2 times daily 04/09/20 25 Active terbinafine (LamISIL) 250 MG tablet Take 1 (one) tablet by mouth once daily 06/06/20 25 Active azelastine-flu ticasone (Dymista) 137-50 MCG/ACT nasal spray [place] into each nostril once daily Active tirzepatide [...] for Pain 40 tablet 08/01/20 25 Active Additional Information Patient not taking.Reported on 09/09/2025 acetaminophen (Tylenol) 325 MG tabletIndicati ons:Pain Take 2 (two) tablets by mouth every 6 hours as needed for Pain Maximum allowable Acetaminophen amount = 4 Grams (4000 mg) / 24 hours. Reasons: Pain 40 tablet 08/01/20 25 Active senna (Senokot) 8.6 MG tablet Take 2 (two) tablets by mouth once daily Hold for loose stools or diarrhea 30 tablet 08/01/20 25 Active Additional Information Patient not taking.Reported on 09/09/2025 tiZANidine (Zanaflex) 4 MG tablet Take 1 (one) tablet by mouth at bedtime 025 Discontin ued(List Clean-Up) oxyCODONE, immediate release, (Roxicodone) 5 MG tabletIndicati ons:Post-opera tive state Take 1 (one) tablet by mouth every 6 hours as needed for Pain 12 tablet 08/01/20 25 025 Discontin ued(List Clean-Up) Active Problems Problem Noted Date Diagnosed Date Pre-op testing 07/31/2025 Encounters Date Type Department Care Team Description 09/09/2025 11:30 AM MANAGER CUSTOMER SERVICE Office Visit [facility] - DIRECTOR OF ROOMS [address] [place] [id number] Kash Mcclelland MD Postop check (Primary Dx) 09/09/2025 Travel 07/31/2025 11:30 AM CDT Anesthesia Event [facility] [address] [place] [address] Woody Beyer MD Will, Katina Lawrence, WELDER APPRENTICE-ENVIRONMENTAL HEALTH PHYSICIAN 07/31/2025 10:36 AM CDT - 07/31/2025 1:57 PM CDT Surgery [facility] [address] [place] [address] Kash Mcclelland MD ANTERIOR POSTERIOR ENTEROCELE REPAIR 07/31/2025 9:01 AM CDT - 2025 9:59 AM CDT Hospital Encounter [facility] ANTEPARTUM/MOTHER BABY [address] [place] [address] Kash Mcclelland MD DIRECTOR OF ROOMS Discharge Disposition: Home or Self Care 07/31/2025 Travel 07/25/2025 Travel from Last 3 Months Family History Medical [...] Date Recorded Patient Health Questionnaire-2 Score 0 09/09/2025 [facility] [place] [facility] Occupat ional Health - Occupational Stress [...] any time in the past 12 m [facility], were you homeless or living in a fci (including now)? No 2025 Comments No Sex and Gender Information Value Date Recorded Sex Assigned at Not on file Legal Sex Female 6:14 AM MANAGER CUSTOMER SERVICE Gender Identity Not on file Sexual Orientation Not on file Last Filed Vital Signs Vital Sign Reading Time Taken Comments Blood Pressure 126/84 09/09/2025 11:27 AM MANAGER CUSTOMER SERVICE Pulse 60 2025 3:55 AM CDT Temperature 36.7 C (98.1 F) 2025 3:55 AM CDT Respiratory Rate 16 2025 3:55 AM CDT Oxygen Saturation 96% 2025 3:55 AM CDT Inhaled Oxygen Concentration - - Weight 75.8 kg (167 lb) 09/09/2025 11:27 AM MANAGER CUSTOMER SERVICE Height 166.4 cm (5' 5.5) 09/09/2025 11:27 AM CS T Body Mass Index 27.37 09/09/2025 11:27 AM MANAGER CUSTOMER SERVICE Plan of Treatment Health Maintenance Due Date [...] 2) 2007 COVID-19 VACCINE (3 - season) 2025 12/06/2021, 01/06/2021 INFLUENZA VACCINE (#1) 2025 , 08/20/2020, 08/24/2016, Additional history exists SCREENING FOR DIABETES 07/15/2028 [...] this topic Medical Devices Implanted Type Area Sponge Hooker Device Identifier Shelf Expiration Date Model / Serial / Lot Sys Ureth Supp Lance Lynx Adv Trnvg Implanted:Qty: 1 on 07/31/2025 by [facility] N[facility]A: Vagina [employer] Codie 07/31/2027 [id number] / / [id number] Procedures Procedure Name Priority Date/Time Associated Diagnosis Comments CBC W AUTO DIFFERENTIAL AM Draw 2025 2:59 AM CDT Pre-op testing LARYNGEAL MASK AIRWAY Routine 07/31/2025 11:45 AM CDT NE SLING OPER STRES INCONTINENCE 07/31/2025 11:00 AM CDT Diagnosis unknown Special Needs NEED [employer] BLUE SLING. 07/12 CDM NE COMBO ANT/POST COLPORR+ENTEROCELE 07/31/2025 11:00 AM CDT Diagnosis unknown Special Needs NEED [employer] BLUE SLING. 07/12 CDM REF LAB-SPECIMEN STATUS REPORT Routine 07/15/2025 1:08 PM CDT BASIC METABOLIC PANEL (CALCIUM TOTAL) Routine 07/15/2025 1:08 PM CDT CBC W/O DIFFERENTIAL Routine 07/15/2025 1:08 PM CDT from Last 3 Months Results * (ABNORMAL) CBC W AUTO DIFFERENTIAL (2025 2:59 AM CDT) WBC 8.7 4.0 - 10.7 x10E9/L 2025 3:50 AM CDT [facility] RBC Count 3.15(L) 3.90 - 5.20 x10E12/L 2025 3:50 AM CDT [facility] Hemoglobin 9.3(L) 11.9 - 15.8 g/dL 2025 3:50 AM CDT [facility] Hematocrit 27.8(L) 34.8 - 46.1 % 2025 3:50 AM CDT [facility] MCV 88.3 80.0 - 98.0 fL 2025 3:50 AM CDT [facility] MCH 29.5 26.7 - 33.6 pg 2025 3:50 AM CDT [facility] MCHC 33.5 31.7 - 36.3 g/dL 2025 3:50 AM CDT [facility] RDW-CV 13.2 11.3 - 14.8 % 2025 3:50 AM CDT [facility] Platelet Count 182 150 - 420 x10E9/L 2025 3:50 AM CDT [facility] MPV 9.4 7.8 - 11.4 fL 2025 3:50 AM CDT [facility] Neutrophil % 85.4(H) 41.0 - 74.0 % 2025 3:50 AM CDT [facility] Lymphocyte % 4.8(L) 17.0 - 47.0 % 2025 3:50 AM CDT [facility] Monocyte % 9.2 3.0 - 11.0 % 2025 3:50 AM CDT [facility] Eosinophil % 0.1 0.0 - 7.0 % 2025 3:50 AM CDT [facility] Basophil % 0.2 0.0 - 1.6 % 2025 3:50 AM CDT [facility] Immature Granulocytes % 0.3 0.0 - 1.0 % 2025 3:50 AM CDT [facility] Neutrophil Absolute 7.41 1.60 - 7.50 x10E9/L 2025 3:50 AM CDT [facility] Lymphocyte Absolute 0.42(L) 1.00 - 4.40 x10E9/L 2025 3:50 AM CDT [facility] Monocyte Absolute 0.80 0.15 - 1.00 x10E9/L 2025 3:50 AM CDT [facility] Eosinophil Absolute 0.01 0.00 - 0.60 x10E9/L 2025 3:50 AM CDT [facility] Basophil Absolute 0.02 0.00 - 0.13 x10E9/L 2025 3:50 AM CDT [facility] Blood BLOOD SPECIMEN / Unknown Lab Venipuncture / Unknown 2025 2:59 AM CDT 2025 3:36 AM CDT us Kash Mcclelland MD LAB - HEMATOLOGY ORDERAB LES Final Result [facility] [address] [place] [address] * LARYNGEAL MASK AIRWAY (07/31/2025 11:45 AM [...] the procedure Provider #1: Woody Beyer MD. us Woody Beyer MD GENERAL ANESTHESIA ORDERABLE S [...] assigned Basic Metabolic Panel (8), Test Code #[id number] to this request. If this is not the testing you wished to receive on this specimen, please contact the [facility] Client Inquiry/Technical Services Department to clarify the test order. We appreciate your business. 07/15/2025 1:08 PM CDT 07/15/2025 Narrative [facility] INSURANCE BILL - 07/16/2025 7:09 AM CDT Performed at: - [facility] [address] [id number] Proprietary Trader: Serge Vigil PhD, Phone: [phone] us Kash Mcclelland MD LAB - CHEMISTRY ORDERABL ES Final Result Performing Organization Address [facility]/ZIP Co de Phone Number [facility] INSURANCE BILL [address] [place] [address] * CBC W/O DIFFERENTIAL (07/15/2025 1:08 PM [...] - 07/16/2025 7:09 AM CDT Performed at: - [facility] [address] [id number] Proprietary Trader: Serge Vigil PhD, Phone: [phone] us Kash Mcclelland MD LAB - HEMATOLOGY ORDERAB LES Final Result Performing Organization Address [facility]/ZIP Co de Phone Number [facility] INSURANCE BILL [address] [place] [address] * BASIC METABOLIC PANEL (CALCIUM TOTAL) (07/15/2025 [...] - 07/16/2025 7:09 AM CDT Performed at: - [facility] [id number] Proprietary Trader: Serge Vigil PhD, Phone: [phone] us Kash Mcclelland MD LAB - CHEMISTRY ORDERABL ES Final Result [facility] INSURANCE BILL [address] [place] [address] from Last 3 Months Insurance MEDICARE [employer] Care Teams Fire Control System Installer Relationship Specialty [place] [address] [place] [phone] PCP - General 04/20/22
--- OUTSIDE RECORDS SUMMARY | 2025-09-23 14:12 | XMS_ITS | Encounter Summary ---
Author Organization [facility] Address [address] [place] [address] Care Team Providers Care Math And Physics Instructor Name Role Phone Rock Early MD Primary Care Provider [phone] Reason for Visit * Reason Onset Date Comments Appointment 06/17/2025 Encounter Details Date Type Department Care Team (Late st Contact Info) Description 06/17/2025 Telephone [facility] - TELEHEALTH COORDINATOR [address] [facility] [address] [place] [phone] Kash Mcclelland MD [address] [facility] [address] [place] [address] Appointment Social History Tobacco Use [...] on file Legal Sex Female 6:14 AM ADVERTISING COORDINATOR Gender Identity Not on file Sexual Orientation [...] documented in this encounter Plan of Treatment Not on file documented as of this encounter Visit Diagnoses Not on filedocumented in this encounter Care Teams Math And Physics Instructor Relationship Specialty Start Date End Date Rock Early MD [address] [place] [address] PCP - General 04/20/22 documented as of this encounter
--- OUTSIDE RECORDS SUMMARY | 2025-09-23 14:12 | XMS_ITS | Clinical Summary ---
Author Organization [facility] Address [address] [place] [address] Phone Care Team Providers Care Marketing Ambassador Name Role Phone Unavailable Primary Care Provider [...] on file Legal Sex Female 3:59 AM PATIENT CARRIER Gender Identity Not on file Sexual Orientation [...] Screening 09/12/2029 Medical Devices Implanted Type Area Laboratory Assistant Device Identifier Shelf Expiration Date Model / Serial / Lot Breast Marker Left: Breast Insurance [employer] Commercial [employer] (INTERNAL) [facility] Internal Plans Advance Directives For more information, please contact: [phone] * Full Code (Latest Code Status on [...]
[2025-09-23 15:15] LABS: Hemoglobin A1C 4.8 % (<5.7)
== END 2025-09-23 12:20 | disposition home or self-care (01) ==
PROVIDERS: PCP Internal Medicine; Visit Provider Internal Medicine
DX: I10 Essential (primary) hypertension (principal); E03.9 Hypothyroidism, unspecified; E78.2 Mixed hyperlipidemia; R73.03 Prediabetes
CPT/HCPCS: 36415; 80053; 80061; 83036; 84439; 84443; 85025